=== PATIENT | male | born 1935 | race Caucasian/White ===

== ENCOUNTER 2016-10-08 09:50 | Inpatient (IN) ==
--- NOTE | 2016-10-08 10:13 | Emergency Department Note ---
Disposition Clinical Impression: Generalized weakness UTI (urinary tract infection) Qualifiers: Urinary tract infection type: acute cystitis Hematuria presence: with hematuria Qualified Code(s): N30.01 - Acute cystitis with hematuria Disposition: Admitted As Inpatient Condition: Fair Referrals: NO,PCP [Primary Care Provider] - Forms: ED Satisfaction Letter Time of Disposition: 13:25 Syncope HPI - General Chief Complaint: ED Dizziness Stated Complaint: Bilat leg weakness, blurred vision Time Seen by Provider: 10/08/16 10:03 Source: patient, family Mode of arrival: wheelchair Limitations: no limitations Nursing Notes Reviewed: Yes Vital Signs Reviewed: Yes - History of Present Illness HPI Narrative: 81-year-old has had a progressive generalized weakness to the point he cannot get up and get around now. Symptoms have been going on for quite some time he was actually hospitalized at outside facility about a month ago for similar. Patient states he also has blurred vision has been dizzy and felt like he is going to pass out. Pt Subjective Complaint: felt faint, almost passed out Onset (ago): week(s) Prodromal Symptoms: lightheaded Injuries Sustained Associated with Event: none Current Symptoms: lightheaded, weakness (Generalized) History: none Treatments prior to arrival: none Associated trauma secondary to event: No - Related Data Home Medications Medication Instructions Recorded Confirmed Amlodipine [Norvasc] 5 mg PO DAILY 10/08/16 10/08/16 Apixaban [Eliquis] 5 mg PO BID 10/08/16 10/08/16 Aspirin [Ecotrin] 325 mg PO DAILY 10/08/16 10/08/16 Carvedilol [Coreg] 6.25 mg PO BIDWM 10/08/16 10/08/16 Donepezil [Aricept] 5 mg PO HS 10/08/16 10/08/16 Furosemide [Lasix] 40 mg PO BID 10/08/16 10/08/16 Potassium Chloride [K-Tab ER] 10 meq PO DAILY 10/08/16 10/08/16 Simvastatin [Zocor] 80 mg PO HS 10/08/16 10/08/16 Tamsulosin [Flomax] 0.4 mg PO DAILY 10/08/16 10/08/16 TraZODone 50 mg PO HS 10/08/16 10/08/16 Allergies Allergy/AdvReac Type Severity Reaction Status Date / Time No Known Allergies Allergy Verified 10/08/16 09:59 Constitutional: Denies: fever, chills, weakness, weight change Eyes: Reports: vision change (Blurred vision). Denies: eye pain, eye discharge ENT ED: Denies: ear pain, throat pain, dental pain, hearing loss, epistaxis, congestion, dysphagia Cardiovascular: Denies: chest pain, palpitations, dyspnea on exertion, edema, syncope Respiratory: Denies: cough, dyspnea, wheezes, hemoptysis, stridor Gastrointestinal: Denies: abdominal pain, nausea, vomiting, diarrhea, constipation, hematemesis, melena, hematochezia Genitourinary: Denies: urgency, dysuria, frequency, hematuria Musculoskeletal: Denies: back pain, neck pain, arthralgia, myalgia Integumentary: Denies: rash, abrasion, lesions Neurological: Denies: headache, weakness, numbness, paresthesias, confusion, abnormal gait, vertigo Psychiatric: Denies: anxiety, depression, suicidal thoughts, homicidal thoughts , auditory hallucinations, visual hallucinations Endocrine: Denies: fatigue Hematological/Lymphatic: Denies: easy bleeding, easy bruising Allergic/Immunologic: Denies: facial swelling, urticaria Past Medical History - Past Medical History Medical history: Reports: arthritis, atrial fibrillation, GI bleed, hyperlipidemia, hypertension, myocardial infarction Surgical history: Reports: hip replacement, pacemaker/AICD, other Psychiatric history: Reports: no psych history - Social History Smoking Status: Never smoker Smokeless Tobacco Status: No Alcohol use: Reports: none Drug use: Reports: none Physical Exam - General Limitations: no limitations General appearance: alert - Head Head exam: atraumatic, normocephalic, normal inspection - Eye Eye exam: Present: normal appearance, PERRL, EOMI - ENT ENT exam: normal exam, normal oropharynx, mucous membranes moist - Neck Neck exam: Present: normal inspection, full ROM, trachea midline - Chest Chest inspection: Present: normal inspection, symmetric chest wall rise - Respiratory Respiratory exam: Present: normal lung sounds bilaterally - Cardiovascular Cardiovascular exam: Present: regular rate, normal rhythm, normal heart sounds - Abdominal Exam Abdominal exam: Present: soft, Non-Tender. Absent: tenderness, distention, guarding, rebound, rigidity - Extremities Exam Extremities exam: Present: normal inspection, full ROM. Absent: tenderness, pedal edema - Expanded Lower Extremity Exam Neurovascular/Tendon exam: Absent: motor deficit, sensory deficit, tendon deficit Gait: not tested/not observed - Back Exam Back exam: Present: normal inspection - Neurological Exam Neurological exam: Present: alert, oriented X3, motor sensory deficit - Psychiatric Psychiatric exam: Present: normal affect, normal mood - Skin Skin exam: Present: warm, dry, intact, normal color Course - Reevaluation(s) Reevaluation #1: 81-year-old comes in with generalized weakness, getting out of bed trouble getting around. Urine does show what appears to be a UTI. CT scan shows no acute findings. Time: 13:24 - Consultations Consultation #1: Discussed with , admit. Time: 13:23 Vital Signs Temperature 97.8 F 10/08/16 09:52 Pulse Rate 63 10/08/16 09:52 Respiratory Rate 17 10/08/16 09:52 Blood Pressure 101/49 10/08/16 09:52 O2 Sat by Pulse Oximetry 100 10/08/16 09:52 Temperature 97.8 F 10/08/16 09:52 Pulse Rate 63 10/08/16 12:30 Respiratory Rate 18 10/08/16 12:30 Blood Pressure 98/61 10/08/16 12:30 O2 Sat by Pulse Oximetry 100 10/08/16 12:30 Oxygen Delivery Oxygen Delivery Nasal Cannula Syncope - Lab Data Lab results reviewed: Yes I reviewed the patient's lab results. Result diagrams: 10/08/16 10:39 10/08/16 10:39 Lab Results 10/08/16 10/08/16 10/08/16 Range/Units 10:39 10:39 10:39 WBC 18.7 H (4.3-11.1) K/mcL RBC 2.46 L (4.19-5.50) M/mcL Hgb 7.1 L (12.9-16.9) g/dL Hct 25.1 L (37.5-50.1) % MCV 102.0 H (83.0-100.0) fL MCH 28.9 (28.0-33.3) pg MCHC 28.3 L (31.6-35.5) g/dL RDW 20.2 H (11.5-14.5) % Plt Count 630 H (140-400) K/mcL MPV 10.1 (9.4-12.4) fL Seg Neutrophils % 64.0 % Band Neutrophils % 8.0 H (0-4) % Lymphocytes % 16.0 % Monocytes % 2.0 % Metamyelocytes % 2.0 H (0) % Myelocytes % 8.0 H (0) % Neutrophils # 13.5 H (1.6-8.9) K/mcL Lymphocytes # 3.0 (0.6-4.6) K/mcL Monocytes # 0.4 (0.0-1.3) K/mcL Nucleated RBCs/100 WBC 0.1 H (0) /100 WBC Toxic Granulation Present A (Not Present) Platelet Estimate Marked Increase H (Normal) Polychromasia 1+ A (Not Present) Poikilocytosis 1+ A (Not Present) Basophilic Stippling 1+ A (Not Present) Anisocytosis 2+ A (Not Present) PT 18.0 H (9.4-12.1) Seconds INR 1.6 APTT (26.0-36.0) Seconds Sodium 135 L (136-145) mEq/L Potassium 5.1 H (3.5-4.5) mEq/L Chloride 107 (98-109) mEq/L Carbon Dioxide 17 L (19-29) mEq/L BUN 100 H (8-26) mg/dL Creatinine 3.20 H (0.72-1.25) mg/dL Est GFR ( Amer) 23 L (> 60) Est GFR (Non-Af Amer) 19 L (> 60) BUN/Creatinine Ratio 31 H (6-26) Glucose 129 H (70-99) mg/dL Calculated Osmolality 313 H (280-300) Calcium 8.6 (8.6-10.8) mg/dL Troponin I (0-0.03) ng/mL Urine Color (Yellow) Urine Clarity (Clear) Urine pH (5.0-8.0) pH Units Ur Specific [place] (1.010-1.025) Urine Protein (Neg-Trace) mg/dL Urine Glucose (UA) (Normal) mg/dL Urine Ketones (Negative) mg/dL Urine Blood (Negative) Urine Nitrite (Negative) Urine Bilirubin (Negative) Urine Urobilinogen (Normal) mg/dL Ur Leukocyte Esterase (Negative) Urine Microscopic RBC (0-3) per hpf Urine Microscopic WBC (0-3) per hpf Ur Squamous Epith Cells (None-Few) per lpf Urine Bacteria (None-Few) per hpf Hyaline Casts (None-Few) per lpf Ur Culture Indicated? (NO) Blood Type Antibody Screen 10/08/16 10/08/16 10/08/16 Range/Units 10:39 10:39 12:01 WBC (4.3-11.1) K/mcL RBC (4.19-5.50) M/mcL Hgb (12.9-16.9) g/dL Hct (37.5-50.1) % MCV (83.0-100.0) fL MCH (28.0-33.3) pg MCHC (31.6-35.5) g/dL RDW (11.5-14.5) % Plt Count (140-400) K/mcL MPV (9.4-12.4) fL Seg Neutrophils % % Band Neutrophils % (0-4) % Lymphocytes % % Monocytes % % Metamyelocytes % (0) % Myelocytes % (0) % Neutrophils # (1.6-8.9) K/mcL Lymphocytes # (0.6-4.6) K/mcL Monocytes # (0.0-1.3) K/mcL Nucleated RBCs/100 WBC (0) /100 WBC Toxic Granulation (Not Present) Platelet Estimate (Normal) Polychromasia (Not Present) Poikilocytosis (Not Present) Basophilic Stippling (Not Present) Anisocytosis (Not Present) PT (9.4-12.1) Seconds INR APTT 33.3 (26.0-36.0) Seconds Sodium (136-145) mEq/L Potassium (3.5-4.5) mEq/L Chloride (98-109) mEq/L Carbon Dioxide (19-29) mEq/L BUN (8-26) mg/dL Creatinine (0.72-1.25) mg/dL Est GFR ( Amer) (> 60) Est GFR (Non-Af Amer) (> 60) BUN/Creatinine Ratio (6-26) Glucose (70-99) mg/dL Calculated Osmolality (280-300) Calcium (8.6-10.8) mg/dL Troponin I 0.01 (0-0.03) ng/mL Urine Color (Yellow) Urine Clarity (Clear) Urine pH (5.0-8.0) pH Units Ur Specific [place] (1.010-1.025) Urine Protein (Neg-Trace) mg/dL Urine Glucose (UA) (Normal) mg/dL Urine Ketones (Negative) mg/dL Urine Blood (Negative) Urine Nitrite (Negative) Urine Bilirubin (Negative) Urine Urobilinogen (Normal) mg/dL Ur Leukocyte Esterase (Negative) Urine Microscopic RBC (0-3) per hpf Urine Microscopic WBC (0-3) per hpf Ur Squamous Epith Cells (None-Few) per lpf Urine Bacteria (None-Few) per hpf Hyaline Casts (None-Few) per lpf Ur Culture Indicated? (NO) Blood Type A NEGATIVE Antibody Screen NEGATIVE 10/08/16 Range/Units 12:35 WBC (4.3-11.1) K/mcL RBC (4.19-5.50) M/mcL Hgb (12.9-16.9) g/dL Hct (37.5-50.1) % MCV (83.0-100.0) fL MCH (28.0-33.3) pg MCHC (31.6-35.5) g/dL RDW (11.5-14.5) % Plt Count (140-400) K/mcL MPV (9.4-12.4) fL Seg Neutrophils % % Band Neutrophils % (0-4) % Lymphocytes % % Monocytes % % Metamyelocytes % (0) % Myelocytes % (0) % Neutrophils # (1.6-8.9) K/mcL Lymphocytes # (0.6-4.6) K/mcL Monocytes # (0.0-1.3) K/mcL Nucleated RBCs/100 WBC (0) /100 WBC Toxic Granulation (Not Present) Platelet Estimate (Normal) Polychromasia (Not Present) Poikilocytosis (Not Present) Basophilic Stippling (Not Present) Anisocytosis (Not Present) PT (9.4-12.1) Seconds INR APTT (26.0-36.0) Seconds Sodium (136-145) mEq/L Potassium (3.5-4.5) mEq/L Chloride (98-109) mEq/L Carbon Dioxide (19-29) mEq/L BUN (8-26) mg/dL Creatinine (0.72-1.25) mg/dL Est GFR ( Amer) (> 60) Est GFR (Non-Af Amer) (> 60) BUN/Creatinine Ratio (6-26) Glucose (70-99) mg/dL Calculated Osmolality (280-300) Calcium (8.6-10.8) mg/dL Troponin I (0-0.03) ng/mL Urine Color Yellow (Yellow) Urine Clarity Cloudy A (Clear) Urine pH 5.5 (5.0-8.0) pH Units Ur Specific [place] 1.016 (1.010-1.025) Urine Protein 100 H (Neg-Trace) mg/dL Urine Glucose (UA) Normal (Normal) mg/dL Urine Ketones Negative (Negative) mg/dL Urine Blood Large H (Negative) Urine Nitrite Negative (Negative) Urine Bilirubin Negative (Negative) Urine Urobilinogen Normal (Normal) mg/dL Ur Leukocyte Esterase Small H (Negative) Urine Microscopic RBC 30-50 H (0-3) per hpf Urine Microscopic WBC 5-15 H (0-3) per hpf Ur Squamous Epith Cells Moderate H (None-Few) per lpf Urine Bacteria None Seen (None-Few) per hpf Hyaline Casts None Seen (None-Few) per lpf Ur Culture Indicated? YES A (NO) Blood Type Antibody Screen - Radiology Data Radiology results reviewed: Yes I reviewed the patient's radiology results. Chest X-Ray 10/08/16 10:09 IMPRESSION: Stable study showing cardiomegaly. D/ / Lauren Vargas Cha, MD / Lauren Vargas Cha, MD Interpreting Provider: Lauren Vargas Cha, MD Head CT 10/08/16 10:09 IMPRESSION: No acute intracranial abnormality. If acute cerebral infarct is a clinical concern, an MRI is a more sensitive study. D/ / Lauren Vargas Cha, MD / Lauren Vargas Cha, MD Interpreting Provider: Lauren Vargas Cha, MD Stroke Scale - Level of Consciousness LOC: Alert - LOC Questions LOC Questions: Answers both correctly - LOC Commands LOC Commands: Performs both correctly - Best Gaze Best Gaze: Normal - Visual Visual: No visual loss - Facial Palsy Facial Palsy: Normal - Motor Arms Motor Arm-Left: No drift for 10 seconds Motor Arm-Right: No drift for 10 seconds - Motor Legs Motor Leg-Left: Drift, does NOT hit bed Motor Leg-Right: Some effort against gravity, limb drifts to bed - Limb Ataxia Limb Ataxia: Normal, No Ataxia - Sensory Sensory: Normal - Best Language Best Language: No aphasia - Dysarthria Dysarthria: Normal - Extinction and Inattention Extinction and Inattention: Normal - NIHSS Total Score NIHSS Total Score: 3 TPA Checklist - Eligibilty for IV tPA 1. LKW equal to or less than 4.5 hours be before treatment: No - LKW: 3-4.5 hrs Add. Contraindications Patient/family understanding: The patient/family members have been counseled and understood the risk, benefit , and alternatives of treatment.
[2016-10-08 11:02] LABS: Hematocrit 25.1 % (37.5-50.1); Hemoglobin 7.1 g/dL (12.9-16.9); Mean Corpuscular HGB Conc 28.3 g/dL (31.6-35.5); Mean Corpuscular Hemoglobin 28.9 pg (28.0-33.3); Mean Platelet Volume 10.1 fL (9.4-12.4); Nucleated Red Blood Cells 0.1 /100 WBC (0); Platelet Count 630 K/mcL (140-400); Red Blood Count 2.46 M/mcL (4.19-5.50); Red Cell Distribution Width 20.2 % (11.5-14.5)
[2016-10-08 11:06] LABS: INR 1.6
[2016-10-08 11:13] LABS: Calcium 8.6 mg/dL (8.6-10.8); Potassium 5.1 mEq/L (3.5-4.5)
[2016-10-08 11:54] LABS: Monocytes # 0.4 K/mcL (0.0-1.3); Neutrophils # 13.5 K/mcL (1.6-8.9)
[2016-10-08 11:55] LABS: Anisocytosis 2+ (Not Present); Basophilic Stippling 1+ (Not Present); Platelet Estimate Marked Increase (Normal); Polychromasia 1+ (Not Present)
[2016-10-08 11:56] LABS: Poikilocytosis 1+ (Not Present); Toxic Granulation Present (Not Present)
[2016-10-08] MEDS ORDERED: 0.9 % Sodium Chloride 250 ML IVC ONE (12:29)
[2016-10-08 12:42] LABS: Bilirubin,Urine Negative (Negative); Blood,Urine Large (Negative); Clarity,Urine Cloudy (Clear); Color,Urine Yellow (Yellow); Glucose,Urine (UA) Normal (Normal); Ketones,Urine Negative (Negative); Leukocyte Esterase,Urine Small (Negative); Nitrite,Urine Negative (Negative); PH,Urine 5.5 pH Units (5.0-8.0); Protein,Urine 100 mg/dL (Neg-Trace); Specific Gravity,Urine 1.016 (1.010-1.025); Urobilinogen,Urine Normal (Normal)
[2016-10-08 12:44] LABS: Bacteria,Urine None Seen per hpf (None-Few); Hyaline Casts,Urine None Seen per lpf (None-Few); RBC,Urine 30-50 per hpf (0-3); Squamous Epithelial Cell,Urine Moderate per lpf (None-Few)
[2016-10-08] MEDS ORDERED: Naloxone 0.4 MG/ML INJ IVP PRN (13:11)
[2016-10-08] MEDS ORDERED: Ondansetron 4 MG/2 ML VIAL IVP PRN (13:11)
[2016-10-08] MEDS: 0.9 % Sodium Chloride 1,000 ML IVC SCH (13:55)
--- NOTE | 2016-10-08 13:59 | Internal Med History&Physical ---
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 social media marketing specialist eval for d/c planning (2) UTI (urinary tract infection) Current visit: Yes Status: Acute -f/u urine cultures -started Ceftriaxone 1gm IV qd -leukocytosis likely secondary to UTI, closely monitor -f/u blood cultures Qualifiers: Urinary tract infection type: acute cystitis Hematuria presence: without hematuria Qualified Code(s): N30.00 - Acute cystitis without hematuria (3) Dizziness Current visit: Yes Status: Resolved -resolved at this time -obtain orthostatic vitals -maintain fall precautions (4) Anemia Current visit: No Status: Acute -No active bleeding noted -will obtain stool occult -currently being transfused 2units PRBC -will closely monitor Qualifiers: Anemia type: unspecified type Qualified Code(s): D64.9 - Anemia, unspecified (5) Acute on chronic kidney failure Current visit: No Status: Acute likely secondary to underlying UTI will continue IV fluids hold nephrotoxic agents at this time continue to closely monitor (6) Alzheimers disease Current visit: Yes Status: Chronic -continue home medications Qualifiers: Alzheimer's disease onset: unspecified onset Dementia behavioral disturbance: without behavioral disturbance Qualified Code(s): G30.9 - Alzheimer's disease, unspecified; F02.80 - Dementia in other diseases classified elsewhere without behavioral disturbance (7) Hyperkalemia Current visit: Yes Status: Acute Pt was reported of taking K supplements at home, will hold at this time No EKG changes noted continue to closely monitor (8) Atrial fibrillation Current visit: No Status: Chronic Rate controlled Currently off anticoagulation as per primary kitchen food assembler due to recent new onset of diffuse bruising Will monitor off anticoagulation at this time Qualifiers: Atrial fibrillation type: chronic Qualified Code(s): I48.2 - Chronic atrial fibrillation (9) HTN (hypertension) Current visit: No Status: Chronic Noted to be hypotensive Will hold antihypertensive medications at this time continue to closely monitor BP Qualifiers: Hypertension type: essential hypertension Qualified Code(s): I10 - Essential (primary) hypertension (10) DVT prophylaxis Current visit: Yes Status: Acute IPCD Internal Medicine - H&P: HPI Chief complaint: dizziness Admitted From: Home Plans for Post Hospital Care: Transfer [facility] History of present illness: Mr. Rodríguez is a 81 year old male with PMH of hypertension, hyperlipidemia, CKD, Afib, nephrolithiasis s/p stent placement, newly diagnosed Alzheimers disease, and PVD who is brought to the ER for evaluation of generalized weakness and dizziness. Patient states overnight he got up to use the bathroom and felt the room was spinning, however denies any other complains. As per his who is present at bedside, patient has been progressively getting weaker and his kitchen food assembler stopped the anticoagulation due to increased bruising. She states he was recently started on Donepazil and overnight he was extremely weak that it was struggle to even get him out of bed to bring to the hospital. At rest patient appears to be in distress. He is AAO x 3 and denies any headache, dizziness, sob, chest pain, palpitations, abd pain, n/v, dysuria, fever, or chills. Denies any history or recent GI bleeds. Reports of chronic constipation for which he takes milk of mg. I had a detailed discussion in regards to patient's advance directives, patient wishes to be DNR/DNI and reports of having these discussions at home and agrees with patient's code status. Past Med Surg Social Fam HX - Past Medical History Medical history: arthritis, atrial fibrillation, hyperlipidemia, hypertension, myocardial infarction Psychiatric history: no psych history - Past Surgical History Surgical History: hip replacement, pacemaker/AICD, other - Social History Smoking Status: Never smoker Smokeless Tobacco Status: No Alcohol use: none Drug use: none Internal Medicine - H&P: Meds Amlodipine [Norvasc] 5 mg PO DAILY 10/08/16 [History] Apixaban [Eliquis] 5 mg PO BID 10/08/16 [History] Aspirin [Ecotrin] 325 mg PO DAILY 10/08/16 [History] Carvedilol [Coreg] 6.25 mg PO BIDWM 10/08/16 [History] Donepezil [Aricept] 5 mg PO HS 10/08/16 [History] Furosemide [Lasix] 40 mg PO BID 10/08/16 [History] Potassium Chloride [K-Tab ER] 10 meq PO DAILY 10/08/16 [History] Simvastatin [Zocor] 80 mg PO HS 10/08/16 [History] Tamsulosin [Flomax] 0.4 mg PO DAILY 10/08/16 [History] TraZODone 50 mg PO HS 10/08/16 [History] Allergies No Known Allergies Allergy (Verified 10/08/16 09:59) All Systems PM: A 10-system review of systems was performed and is negative for pertinent findings except as documented above in the HPI. - Constitutional Constitutional: as per HPI, weakness, no chills, no fever(s), no falls, no night sweats - Constitutional Vitals: Temp Pulse Resp BP Pulse Ox 97.8 F 63 18 98/61 100 10/08/16 09:52 10/08/16 12:30 10/08/16 12:30 10/08/16 12:30 10/08/16 12:30 General appearance: Present: A&O X 3, pleasant, no acute distress, obese, answers questions appropriately - Head Head exam: Present: atraumatic, normocephalic - Respiratory Respiratory exam: Present: CTAB. Absent: respiratory distress, wheezes - Cardiovascular Cardiovascular exam: Present: RRR, +S1, +S2 - GI/Abdominal GI/Abdominal exam: Present: normal bowel sounds, soft. Absent: distended, tenderness - Extremities Exam Extremities exam: Present: pedal edema, warm, radial pulses palpable and symetrical. Absent: calf tenderness, tenderness - Neurological Exam Neurological exam: Present: alert, oriented X3, no focal deficits - Psychiatric Psychiatric exam: Present: normal affect, normal mood - Skin Skin exam: Present: warm (right lateral chest wall bruising) Internal Med - H&P Results - Labs CBC & Chem 7: 10/08/16 10:39 10/08/16 10:39
[2016-10-08] MEDS ORDERED: 0.9 % Sodium Chloride 250 ML ONE ×2 (14:55→20:14)
[2016-10-08] MEDS: Sennosides/Docusate Sodium TABLET PO SCH (20:09)
[2016-10-08] MEDS ORDERED: traZODone 50 MG TABLET PO SCH (21:00)
[2016-10-08] MEDS: traZODone 50 MG TABLET PO PRN (23:32)
[2016-10-09 05:13] LABS: Hematocrit 26.2 % (37.5-50.1); Hemoglobin 7.8 g/dL (12.9-16.9); Immature Platelets 5.9 % (1.1-6.1); Mean Corpuscular HGB Conc 29.8 g/dL (31.6-35.5); Mean Corpuscular Hemoglobin 29.5 pg (28.0-33.3); Mean Corpuscular Volume 99.2 fL (83.0-100.0); Mean Platelet Volume 10.3 fL (9.4-12.4); Nucleated Red Blood Cells 0.1 /100 WBC (0); Platelet Count 712 K/mcL (140-400); Red Blood Count 2.64 M/mcL (4.19-5.50); Red Cell Distribution Width 20.1 % (11.5-14.5)
[2016-10-09 05:29] LABS: Calcium 8.1 mg/dL (8.6-10.8); Phosphorous 5.4 mg/dL (2.3-4.7); Potassium 4.6 mEq/L (3.5-4.5)
[2016-10-09 05:49] LABS: Eosinophils # 0.2 K/mcL (0.0-0.6); Lymphocytes # 0.9 K/mcL (0.6-4.6); Monocytes # 0.9 K/mcL (0.0-1.3); Neutrophils # 13.8 K/mcL (1.6-8.9)
[2016-10-09 05:50] LABS: Anisocytosis 2+ (Not Present); Macrocytosis Present (Not Present); Platelet Estimate Marked Increase (Normal); Polychromasia 2+ (Not Present)
[2016-10-09 05:51] LABS: Large Platelets Present (Not Present); Poikilocytosis 2+ (Not Present)
[2016-10-09] MEDS: 0.9 % Sodium Chloride 1,000 ML IVC SCH (06:57)
--- NOTE | 2016-10-09 09:28 | Internal Med Progress Note ---
<James Matta - Last Filed: 10/09/16 13:50> Date of Encounter: 10/09/16 Time of Encounter: 09:26 - Assessment and plan (1) Generalized weakness Current Visit: Yes Status: Acute Assessment and plan: likely secondary to underlying UTI vs anemia was dizziness upon admission. now resolved. Still has fatigue, but improved since admission initial Hgb 7.1. Pt. was transfused 2 units PRBC. Hgb up to 7.8. NS IVF 125ml/hr. monitor cbc Iron studies fecal occult pending CT abd/pelvis to r/o abscess, bleeding (2) UTI (urinary tract infection) Current Visit: Yes Status: Acute Assessment and plan: started Ceftriaxone 1gm IV qd leukocytosis likely secondary to UTI, closely monitor f/u blood cultures Qualifiers: Urinary tract infection type: acute cystitis Hematuria presence: without hematuria Qualified Code(s): N30.00 - Acute cystitis without hematuria (3) Anemia Current Visit: No Status: Acute Assessment and plan: 2/2 ckd vs. active bleed pt. demies melena/hemoptysis/hematochezia stool occult pending check B12, Folate monitor cbc transfuse as needed Qualifiers: Anemia type: unspecified type Qualified Code(s): D64.9 - Anemia, unspecified (4) Alzheimers disease Current Visit: Yes Status: Chronic Assessment and plan: continue home meds Qualifiers: Alzheimer's disease onset: unspecified onset Dementia behavioral disturbance: without behavioral disturbance Qualified Code(s): G30.9 - Alzheimer's disease, unspecified; F02.80 - Dementia in other diseases classified elsewhere without behavioral disturbance (5) Atrial fibrillation Current Visit: No Status: Chronic Assessment and plan: Rate controlled Currently off anticoagulation 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 4.6 10/09/15 (7) Acute on chronic kidney failure Current Visit: No Status: Acute Assessment and plan: maggie secondary to underlying UTI vs obstrucive uropathy recent hx of kidney stones s/p stent placement which has not been removed. will continue IV fluids hold nephrotoxic agents at this time retroperitoneal u/s to r/o obstructive uropathy Urine lytes pending consult nephro and follow recommendations (8) Leukocytosis Current Visit: Yes Status: Acute Assessment and plan: wbc 18.7 10/08/16, 17.0 10/09/16 likely 2/2 UTI vs unk etiology abd/pelv ct pending to r/o source Qualifiers: Leukocytosis type: unspecified Qualified Code(s): D72.829 - Elevated white blood cell count, unspecified - Subjective Interval history: Patient seen and examined. Sitting up eating breakfast. Friendly and conversational. States he is not having any pain at this time. UA revelaed hematuria but patient denied gross hematuria. Denies any dysuria, dizziness, chest pain, sob, n/v/d. - Constitutional Vitals: Temp Pulse Resp BP Pulse Ox 97.7 F 60 16 116/72 99 10/09/16 07:13 10/09/16 07:13 10/09/16 07:13 10/09/16 07:13 10/09/16 07:13 General appearance: Present: A&O X 3, pleasant, no acute distress, obese, answers questions appropriately - Head Head exam: Present: atraumatic, normocephalic - Eye Eye exam: Present: periorbital swelling, PERRL, conjuntiva pink, sclera anicteric - Neck Neck exam general surgery: Present: supple, trachea midline. Absent: lymphadenopathy - Respiratory Respiratory exam: Present: CTAB. Absent: accessory muscle use, rales, rhonchi, wheezes - Cardiovascular Cardiovascular exam: Present: RRR (paced), +S1, +S2 - GI/Abdominal GI/Abdominal exam: Present: normal bowel sounds, soft, no peritoneal signs. Absent: distended, tenderness - Extremities Exam Extremities exam: Present: pedal edema, warm, radial pulses palpable and symetrical. Absent: calf tenderness, cyanotic - Neurological Exam Neurological exam: Present: CN II-XII intact, oriented X3, no focal deficits. Absent: facial droop, speech deficit - Skin Skin exam: Present: dry, intact Internal Medicine: Result - Labs CBC & Chem 7: 10/09/16 04:29 10/09/16 04:29 Labs: Short CBC 10/09/16 Range/Units 04:29 WBC 17.0 H (4.3-11.1) K/mcL Hgb 7.8 L (12.9-16.9) g/dL Hct 26.2 L (37.5-50.1) % Plt Count 712 H (140-400) K/mcL Neutrophils # 13.8 H (1.6-8.9) K/mcL BMP 10/09/16 04:29 Sodium 138 Potassium 4.6 H Chloride 110 H Carbon Dioxide 17 L BUN 91 H Creatinine 2.97 H Glucose 116 H Calcium 8.1 L - ABG Interpretation ABG results: PT/INR, D-dimer PT 18.0 Seconds (9.4-12.1) H 10/08/16 10:39 - VTE Documentation of Mechanical Device: Intermittent pneumatic compression device Consult Discharge Plan - Plan Referrals: NO,PCP [Primary Care Provider] - <Rolan El - Last Filed: 10/09/16 17:41> Date of Encounter: 10/09/16 - Constitutional Vitals: Temp Pulse Resp BP Pulse Ox 97.8 F 65 18 109/60 100 10/09/16 15:00 10/09/16 15:00 10/09/16 15:00 10/09/16 15:00 10/09/16 15:00 Internal Medicine: Result - Labs CBC & Chem 7: 10/09/16 15:15 10/09/16 04:29 Labs: Short CBC 10/09/16 10/09/16 Range/Units 04:29 15:15 WBC 17.0 H (4.3-11.1) K/mcL Hgb 7.8 L 8.2 L (12.9-16.9) g/dL Hct 26.2 L 27.9 L (37.5-50.1) % Plt Count 712 H (140-400) K/mcL Neutrophils # 13.8 H (1.6-8.9) K/mcL BMP 10/09/16 04:29 Sodium 138 Potassium 4.6 H Chloride 110 H Carbon Dioxide 17 L BUN 91 H Creatinine 2.97 H Glucose 116 H Calcium 8.1 L - ABG Interpretation ABG results: PT/INR, D-dimer PT 18.1 Seconds (9.4-12.1) H 10/09/16 09:52 - Impressions Impressions Abdomen/Pelvis CT 10/09/16 12:45 IMPRESSION: No focal abscess identified. There is trace ascites, hepatomegaly, and right ureteral stent in good position. There is also a large right inguinal hernia containing numerous bowel loops and small amount of fluid. D/ / Regan Durant MD / Regan Durant MD Interpreting Provider: Regan Durant MD Retroperitoneum Ultrasound 10/09/16 13:30 IMPRESSION: No hydronephrosis. Right nephrolithiasis. Indwelling right ureteral stent. Moderately extensive changes suggestive of medical renal disease. D/ / Kane Hagan MD / Kane Hagan MD Interpreting Provider: Kane Hagan MD - Attending Attestation I examined this patient and my medical decision-making was reviewed with the DETENTION OFFICER/PA/Advanced Practice Nurse/Resident Physician. I agree with the documented findings, disposition and treatment plan as described except to the extent set forth below. Admitted due to weakness, had anemia on presentation with a hemoglobin of 7.1, and received 1 unit of blood yesterday, todays Hb was 7.8. Leukocytosis with bandemia, MAGGIE, Hematuria, evidence of UTI. On Rocephin. Patient with history of A. fib, AC was stopped as outpatient due to easy bruises. CT of the abdomen and pelvis: no abscess, ureteral stent in good position. Acute kidney injury and anemia workup, evaluation by nephrology, Dr. Aguirre. Uric Acid 16. Possible TLS, Hem-onc consulted. Rasburicase started. Chest CT without contrast ordered. Follow echo, cultures.
[2016-10-09 10:08] LABS: INR 1.7; Prothrombin Time 18.1 Seconds (9.4-12.1)
[2016-10-09] MEDS: Aspirin Enteric Coated 325 MG Tablet PO SCH (10:15)
[2016-10-09] MEDS: Sennosides/Docusate Sodium TABLET PO SCH ×2 (10:15→20:32)
[2016-10-09 10:48] LABS: Folate 13.2 ng/mL (7.0-31.4)
[2016-10-09] MEDS ORDERED: 0.9 % Sodium Chloride 1,000 ML IVC SCH (11:03)
[2016-10-09 11:36] LABS: Uric Acid 16.2 mg/dL (3.5-7.2)
--- NOTE | 2016-10-09 13:53 | Electrocardiograph Report ---
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
[2016-10-09 15:25] LABS: Hematocrit 27.9 % (37.5-50.1); Hemoglobin 8.2 g/dL (12.9-16.9)
[2016-10-09] MEDS ORDERED: SODIUM CHLORIDE 0.9% IVPB ONE (16:28)
[2016-10-09] MEDS ORDERED: RASBURICASE IVPB ONE (16:28)
[2016-10-09] MEDS ORDERED: Gabapentin 300 MG CAPSULE PO SCH (21:00)
[2016-10-09 23:01] LABS: Protein/Creatinine Ratio,Urine 0.32 mg/mg (0-0.20)
[2016-10-09] MEDS: traZODone 50 MG TABLET PO PRN (23:02)
[2016-10-10 05:14] LABS: Hemoglobin 7.8 g/dL (12.9-16.9); Mean Corpuscular Volume 99.6 fL (83.0-100.0); Mean Platelet Volume 10.4 fL (9.4-12.4); Red Cell Distribution Width 19.9 % (11.5-14.5)
[2016-10-10 05:16] LABS: Hematocrit 26.1 % (37.5-50.1); Mean Corpuscular HGB Conc 29.9 g/dL (31.6-35.5); Mean Corpuscular Hemoglobin 29.8 pg (28.0-33.3); Nucleated Red Blood Cells 0.2 /100 WBC (0); Platelet Count 592 K/mcL (140-400); Red Blood Count 2.62 M/mcL (4.19-5.50)
[2016-10-10 05:33] LABS: Calcium 8.2 mg/dL (8.6-10.8); Potassium 4.7 mEq/L (3.5-4.5)
[2016-10-10 05:59] LABS: Anisocytosis 2+ (Not Present); Basophils # 2.4 K/mcL (0.0-0.2); Lymphocytes # 1.7 K/mcL (0.6-4.6); Monocytes # 1.7 K/mcL (0.0-1.3); Neutrophils # 10.5 K/mcL (1.6-8.9); Ovalocytes 1+ (Not Present); Poikilocytosis 2+ (Not Present); Polychromasia 1+ (Not Present)
[2016-10-10 06:00] LABS: Large Platelets Present (Not Present)
--- NOTE | 2016-10-10 07:22 | Oncology Inp Consult Note ---
Date of Encounter: 10/10/16 Time of Encounter: 07:22 - Data of Consult Patient: new to practice Consult date: 10/10/16 Requesting Physician: Rolan El Primary Care Provider: PCP NO - Consult Narrative Reason for consult: Suspected tumor lysis syndrome. History of present illness: Mr. Rodríguez is a 81 year old gentleman seen in consultation for further evaluation of suspected tumor lysis syndrome. Patient presented 10/02/15 with progressive generalized weakness and unexplained dizziness. Workup on admission showed acute exacerbation of underlying chronic kidney disease in addition to anemia and multiple electrolyte abnormalities during hypokalemia, hypophosphatemia, hypocalcemia raising concern about possible tumor lysis syndrome. CK was normal and abdomen lysis considered unlikely. WBC showed moderate leukocytosis 17,000 with differential WBC count indicating a left shifted picture including monocytosis and basophilia. Other findings include anemia with hemoglobin as low as 7 and thrombocytosis with platelet count of 630,000. Based on above, there is concern about tumor lysis syndrome on the basis of underlying occult malignancy. Oncology is consulted re: evaluation and management of suspected tumor lysis syndrome. Hospital team was kind enough to discuss patient's case with me at time of requesting consultation. He has had systemic imaging including CT head, chest, abdomen, pelvis all of which have returned unremarkable for focal abnormalities suggest underlying solid organ malignancy. Patient seen and examined at bedside. Chart reviewed for details of ongoing care by Hospital team which is much appreciated. Patient reports feeling considerably better this morning compared to initial presentation although he somewhat of a poor historian. 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 Rest of his ongoing problems during this auscultation include UTI generalized weakness, atrial fibrillation. Leukocytosis is persistence of admission. Kidney function is steadily improving. Hyperkalemia is improving. Rest of past medical, surgical, family, social history detailed below and verified with patient today. Review of systems: 12 point review of systems performed with patient and positive findings noted in history of present illness. All other systems are negative: Physical exam: Vital Signs Temp 98.7 F 10/10/16 04:46 Pulse 70 10/10/16 04:46 Resp 19 10/10/16 04:46 BP 122/87 10/10/16 04:46 Pulse Ox 96 10/10/16 04:46 GENERAL: * Alert and oriented, comfortable appearing. * Mental Status: Affect appropriate for circumstances. HEENT: * Sclerae anicteric. No mucositis or thrush. * No other oral or pharyngeal lesions or erythema. Skin: * No rashes or petechiae. * No evidence of skin malignancy Lymph nodes: * No cervical, supraclavicular, axillary, or inguinal adenopathy. Lungs: * Clear to auscultation bilaterally. * Clear to percussion bilaterally. Cardiovascular: * Regular rate and rhythm. * No gallops, murmurs, or rubs. Abdomen: * Soft, nontender; * No organomegaly or masses palpable. Extremities: * No edema. No calf swelling or tenderness. * No joint deformity. Neurologic: * Comfortable in bed. Global weakness. * no focal weakness or sensory abnormalities. Results: Laboratory Last Values WBC 17.0 K/mcL (4.3-11.1) H 10/10/16 04:35 RBC 2.62 M/mcL (4.19-5.50) L 10/10/16 04:35 Hgb 7.8 g/dL (12.9-16.9) L 10/10/16 04:35 Hct 26.1 % (37.5-50.1) L 10/10/16 04:35 MCV 99.6 fL (83.0-100.0) 10/10/16 04:35 MCH 29.8 pg (28.0-33.3) 10/10/16 04:35 MCHC 29.9 g/dL (31.6-35.5) L 10/10/16 04:35 RDW 19.9 % (11.5-14.5) H 10/10/16 04:35 Plt Count 592 K/mcL (140-400) H 10/10/16 04:35 MPV 10.4 fL (9.4-12.4) 10/10/16 04:35 Seg Neutrophils % 38.0 % 10/10/16 04:35 Band Neutrophils % 24.0 % (0-4) H 10/10/16 04:35 Lymphocytes % 10.0 % 10/10/16 04:35 Monocytes % 10.0 % 10/10/16 04:35 Eosinophils % 1.0 % 10/09/16 04:29 Basophils % 14.0 % 10/10/16 04:35 Metamyelocytes % 4.0 % (0) H 10/10/16 04:35 Myelocytes % 3.0 % (0) H 10/09/16 04:29 Blast Cells % 1.0 % (0) H 10/09/16 04:29 Neutrophils # 10.5 K/mcL (1.6-8.9) H 10/10/16 04:35 Lymphocytes # 1.7 K/mcL (0.6-4.6) 10/10/16 04:35 Monocytes # 1.7 K/mcL (0.0-1.3) H 10/10/16 04:35 Eosinophils # 0.2 K/mcL (0.0-0.6) 10/09/16 04:29 Basophils # 2.4 K/mcL (0.0-0.2) H 10/10/16 04:35 Nucleated RBCs/100 WBC 0.2 /100 WBC (0) H 10/10/16 04:35 Toxic Granulation Present (Not Present) A 10/08/16 10:39 Platelet Estimate Slight increase (Normal) H 10/10/16 04:35 Large Platelets Present (Not Present) A 10/10/16 04:35 Immature Plt Fraction 5.9 % (1.1-6.1) 10/09/16 04:29 Polychromasia 1+ (Not Present) A 10/10/16 04:35 Poikilocytosis 2+ (Not Present) A 10/10/16 04:35 Basophilic Stippling 1+ (Not Present) A 10/08/16 10:39 Anisocytosis 2+ (Not Present) A 10/10/16 04:35 Macrocytosis Present (Not Present) A 10/09/16 04:29 Ovalocytes 1+ (Not Present) A 10/10/16 04:35 PT 18.1 Seconds (9.4-12.1) H 10/09/16 09:52 INR 1.7 10/09/16 09:52 APTT 33.3 Seconds (26.0-36.0) 10/08/16 10:39 Sodium 139 mEq/L (136-145) 10/10/16 04:35 Potassium 4.7 mEq/L (3.5-4.5) H 10/10/16 04:35 Chloride 112 mEq/L (98-109) H 10/10/16 04:35 Carbon Dioxide 17 mEq/L (19-29) L 10/10/16 04:35 BUN 84 mg/dL (8-26) H 10/10/16 04:35 Creatinine 2.60 mg/dL (0.72-1.25) H 10/10/16 04:35 Est GFR ( Amer) 29 (> 60) L 10/10/16 04:35 Est GFR (Non-Af Amer) 24 (> 60) L 10/10/16 04:35 BUN/Creatinine Ratio 32 (6-26) H 10/10/16 04:35 Glucose 105 mg/dL (70-99) H 10/10/16 04:35 Calculated Osmolality 314 (280-300) H 10/10/16 04:35 Lactic Acid 1.2 mmol/L (0.5-2.2) 10/08/16 13:39 Uric Acid 16.2 mg/dL (3.5-7.2) H 10/09/16 09:49 Calcium 8.2 mg/dL (8.6-10.8) L 10/10/16 04:35 Phosphorus 5.4 mg/dL (2.3-4.7) H 10/09/16 04:29 Magnesium 3.0 mg/dL (1.6-2.6) H 10/09/16 04:29 Iron 18 mcg/dL (65-175) L 10/09/16 09:49 % Saturation 4 % (20-55) L 10/09/16 09:49 Transferrin 315 mg/dL (174-364) 10/09/16 09:49 Ferritin 50 ng/ml (22-275) 10/09/16 09:49 Creatine Kinase 41 Units/L (30-200) 10/09/16 09:49 Troponin I 0.01 ng/mL (0-0.03) 10/08/16 10:39 Vitamin B12 628 pg/mL (213-816) 10/09/16 09:49 Folate 13.2 ng/mL (7.0-31.4) 10/09/16 09:49 Urine Color Yellow (Yellow) 10/08/16 12:35 Urine Clarity Cloudy (Clear) A 10/08/16 12:35 Urine pH 5.5 pH Units (5.0-8.0) 10/08/16 12:35 Ur Specific [place] 1.016 (1.010-1.025) 10/08/16 12:35 Urine Protein 100 mg/dL (Neg-Trace) H 10/08/16 12:35 Urine Glucose (UA) Normal mg/dL (Normal) 10/08/16 12:35 Urine Ketones Negative mg/dL (Negative) 10/08/16 12:35 Urine Blood Large (Negative) H 10/08/16 12:35 Urine Nitrite Negative (Negative) 10/08/16 12:35 Urine Bilirubin Negative (Negative) 10/08/16 12:35 Urine Urobilinogen Normal mg/dL (Normal) 10/08/16 12:35 Ur Leukocyte Esterase Small (Negative) H 10/08/16 12:35 Urine Microscopic RBC 30-50 per hpf (0-3) H 10/08/16 12:35 Urine Microscopic WBC 5-15 per hpf (0-3) H 10/08/16 12:35 Ur Squamous Epith Cells Moderate per lpf (None-Few) H 10/08/16 12:35 Urine Bacteria None Seen per hpf (None-Few) 10/08/16 12:35 Hyaline Casts None Seen per lpf (None-Few) 10/08/16 12:35 Ur Culture Indicated? YES (NO) A 10/08/16 12:35 Urine Creatinine 68 mg/dL 10/09/16 22:30 Urine Microalbumin 92 mg/L 10/09/16 22:30 Microalb/Creat Ratio 135 (0-30) H 10/09/16 22:30 Protein/Creatinin Ratio 0.32 mg/mg (0-0.20) H 10/09/16 22:30 Urine Sodium 32.0 mEq/L 10/09/16 22:30 Urine Potassium 28.0 mEq/L 10/09/16 22:30 Urine Chloride 27 mEq/L 10/09/16 22:30 Urine Total Protein 22 mg/dL (1-14) H 10/09/16 22:30 Stool Occult Blood Negative (Negative) 10/09/16 15:58 Blood Type A NEGATIVE 10/08/16 12:01 Antibody Screen NEGATIVE 10/08/16 12:01 Crossmatch See Detail 10/08/16 12:01 Radiographic studies: I personally reviewed and interpreted patient's most recent imaging studies dated 1/8/17. I discussed the findings with the patient today. Chest X-Ray 10/08/16 10:09 IMPRESSION: Stable study showing cardiomegaly. D/ / Lauren Vargas Cha, MD / Lauren Vargas Cha, MD Interpreting Provider: Lauren Vargas Cha, MD Head CT 10/08/16 10:09 IMPRESSION: No acute intracranial abnormality. If acute cerebral infarct is a clinical concern, an MRI is a more sensitive study. D/ / Lauren Vargas Cha, MD / Lauren Vargas Cha, MD Interpreting Provider: Lauren Vargas Cha, MD Abdomen/Pelvis CT 10/09/16 12:45 IMPRESSION: No focal abscess identified. There is trace ascites, hepatomegaly, and right ureteral stent in good position. There is also a large right inguinal hernia containing numerous bowel loops and small amount of fluid. D/ / Regan Durant MD / Regan Durant MD Interpreting Provider: Regan Durant MD Retroperitoneum Ultrasound 10/09/16 13:30 IMPRESSION: No hydronephrosis. Right nephrolithiasis. Indwelling right ureteral stent. Moderately extensive changes suggestive of medical renal disease. D/ / Kane Hagan MD / Kane Hagan MD Interpreting Provider: Kane Hagan MD Chest CT 10/09/16 16:39 IMPRESSION: Negative CT of the chest. 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 Fortunately, systemic imaging has returned unremarkable including CT chest, abdomen, pelvis, head CT. No neck adenopathy other solid masses on clinical exam. I had a detailed discussion with the patient regarding diagnostic considerations for his presentation and the basis for concern about underlying occult malignancy which is certainly reasonable consideration. Based on his evaluation so far, no indication of a solid organ malignancy to explain tumor lysis syndrome. Persistent leukocytosis is certainly a concern for primary bone marrow disorder including hematologic malignancy and further workup is warranted. He received a dose of rasburicase due to serum uric acid of 16.2 and the expectation is that his uric acid level would have corrected. No repeat uric acid level noted on chart. We'll follow along and monitor for improvement. Leukocytosis: Consideration for underlying primary hematologic disorder including malignancy is reasonable given patient's advanced age and also based on his WBC differential picture. We'll send peripheral blood flow cytometry and BCR: ABL mutation analysis to evaluate possibility of acute myeloid leukemia and myeloproliferative neoplasm. Leukocytosis may also be on the basis of underlying UTI. We'll monitor for improvement while on antibiotics. Anemia: Likely multifactorial. This is a long-standing problem and has been documented on CBCs dating back to 08/24/2015. Possible contributing factors include underlying kidney dysfunction, infection/ sepsis. As noted above, when he takes with the possibility of primary hematologic disorder such as malignancy. Anemia workup since hospitalization is negative for hematinic deficiencies. Low iron percent saturation and free iron may indicate impaired iron utilization on account of kidney dysfunction. We'll recommend transfusion to maintain hemoglobin of 7 or greater. Once he is back to his baseline kidney function, he may need growth factor support with Aranesp or Procrit in which case it may be reasonable to replenish his iron stores to improve response to CYRUS. Thrombocytosis: Likely reactive due to bone marrow response to anemia. May also indicate infection versus myeloproliferative neoplasm. Without results of pending studies for further recommendation. We'll follow the patient along side you during this hospitalization but please do not hesitate to call regarding interval hematologic questions as they arise. Thank you for your excellent ongoing care for allowing us to see him while in- house. This report was created using voice recognition software and may contain errors. It was signed but not edited to expedite communication. PS: After seeing the patient in the office, I discussed with his Shanae over the phone regarding my impression and recommendations. Past Med Surg Social Fam HX - Past Medical History Medical history: arthritis, atrial fibrillation, dementia, hyperlipidemia, hypertension, kidney stones, myocardial infarction, renal disease Psychiatric history: no psych history - Past Surgical History Surgical History: hip replacement, pacemaker/AICD, other - Social History Smoking Status: Never smoker Smokeless Tobacco Status: No Alcohol use: none Drug use: none - Family History Mother Living Status: Hx Family Cardiac Disorders: Yes (CHF) Medications and Allergies Amlodipine [Norvasc] 5 mg PO DAILY 10/08/16 [History] Apixaban [Eliquis] 5 mg PO BID 10/08/16 [History] Aspirin [Ecotrin] 325 mg PO DAILY 10/08/16 [History] Carvedilol [Coreg] 6.25 mg PO BIDWM 10/08/16 [History] Donepezil [Aricept] 5 mg PO HS 10/08/16 [History] Furosemide [Lasix] 40 mg PO BID 10/08/16 [History] Simvastatin [Zocor] 80 mg PO HS 10/08/16 [History] Tamsulosin [Flomax] 0.4 mg PO DAILY 10/08/16 [History] TraZODone 50 mg PO HS 10/08/16 [History] Gabapentin [Neurontin] 300 mg PO BID 10/09/16 [History] Gabapentin [Neurontin] 600 mg PO QAM 10/09/16 [History] Levothyroxine [Synthroid] 125 mcg PO DAILY 10/09/16 [History] Zolpidem [Ambien] 5 mg PO HS PRN 10/09/16 [History] Allergies No Known Allergies Allergy (Verified 10/09/16 10:28) Oncology - Exam - Constitutional Vitals: Temp Pulse Resp BP Pulse Ox 98.7 F 70 19 122/87 96 10/10/16 04:46 10/10/16 04:46 10/10/16 04:46 10/10/16 04:46 10/10/16 04:46 Oncology - Results - Labs Labs: Short CBC 10/09/16 10/10/16 Range/Units 15:15 04:35 WBC 17.0 H (4.3-11.1) K/mcL Hgb 8.2 L 7.8 L (12.9-16.9) g/dL Hct 27.9 L 26.1 L (37.5-50.1) % Plt Count 592 H (140-400) K/mcL Neutrophils # 10.5 H (1.6-8.9) K/mcL BMP 10/10/16 04:35 Sodium 139 Potassium 4.7 H Chloride 112 H Carbon Dioxide 17 L BUN 84 H Creatinine 2.60 H Glucose 105 H Calcium 8.2 L Consult Discharge Plan - Plan Referrals: NO,PCP [Primary Care Provider] -
[2016-10-10] MEDS: Aspirin Enteric Coated 325 MG Tablet PO SCH (09:29)
[2016-10-10] MEDS: Sennosides/Docusate Sodium TABLET PO SCH ×2 (09:29→21:17)
[2016-10-10] MEDS: Gabapentin 300 MG CAPSULE PO SCH ×3 (10:30→21:38)
--- NOTE | 2016-10-10 11:12 | ECHO - Doppler Report ---
Echocardiogram Name: Osmany Rodríguez Date of Study: 10/09/2016 Date: 1935 Ht: 69.0 in Medical Record#: [id number] Age: 81 Wt: 220.0 lb Gender: Male BSA: 2.15 Order #: [id number] Location: [facility] Room #: [id number] Reading Physician: Lima Akbar DO Nuclear Scientist: Marga Bauer Ordering Physician: Anaid Moeller DO Primary Physician: None Indications: Congestive heart failure on exacerbation, Afib Impressions: LVEF 50%. Indeterminate diastolic function. Atypical septal motion. Moderately dilated RV with mild reduction in function. There is a D-shaped LV septum during diastole suggestive of RV volume overload. Calcified aortic valve with moderate reduction in leaflet excursion. Moderate aortic stenosis. Mild mitral regurgitation. Moderate tricuspid regurgitation. Mild pulmonic regurgitation. Estimated RVSP was 74 mmHg. Severe pulmonary hypertension. Left Ventricular Wall Motion: Rest Echo Findings The mid anterior septal, mid inferior lateral, basal anterior septal and basal inferior lateral byers were not visualized. All other wall segments showed normal motion. Findings: Study Quality * Technically sub-optimal due to body habitus. ECG Findings * Paced rhythm. Left Ventricle * Indeterminate diastolic function. * LVEF 50%. Mitral Valve * No mitral stenosis. * Mildly calcified mitral valve leaflets. * Mild mitral annular calcification * Mild mitral regurgitation. Left Atrium * Severely dilated left atrium. Tricuspid Valve * Tricuspid valve not well visualized. * Moderate tricuspid regurgitation. * Estimated RA pressure is 15 mmHg. * Estimated RVSP is 74 mmHg. * Severe pulmonary hypertension. Pulmonic Valve * Pulmonic valve is not well visualized. * No pulmonic stenosis. * Mild pulmonic regurgitation. Pulmonary Artery * Pulmonary artery not well visualized. Aortic Valve * Moderate aortic stenosis. * The estimated aortic valve area was approximately 1.18 cm2. * Moderately calcified aortic valve leaflets. * No aortic regurgitation. Right Atrium * Moderately dilated right atrium. Right Ventricle * Moderately dilated with mild reduction in function. Interatrial Septum * No evidence of PFO by color Doppler. IVC * The IVC is dilated. * < 50% respiratory change. Pericardium * There is no pericardial effusion present. Aorta * Normally sized aortic root. History Hypertension Hypercholesteremia History of CAD/PTCA Myocardial Infarction Congestive Heart Failure Pacer/ICD Implant Measurements: BP: 109/ 60 2D Normal Values IVSd: 1.10 cm 0.6 - 1.0 cm LVIDd: 4.50 cm 3.7 - 5.6 cm LVPWd: 1.10 cm 0.6 - 1.1 cm LVIDs: 3.30 cm 1.5 - 3.6 cm AO: 2.80 cm < 4.0 cm LA: 5.20 cm 2.0 - 4.0cm %FS: 26.70 cm >25 % LVOT Diam: 2.10 cm LA volume: 138 Mitral Valve Peak E:1.38 m/sec Peak E' Lat Tj:17 cm/s Peak E' Med Tj:4.78 cm/s E/E' Lat Ratio:8.1 E/E' Med Ratio:28.9 LVOT Peak Tj:1.01 m/sec Mean Tj:.65 m/sec Peak Grad:4.00 mmHg Mean Grad:2.00 mmHg Aortic Valve Peak Tj:2.63 m/sec Mean Tj:1.89 m/sec Peak Grad:28.00 mmHg Mean Grad:16.00 mmHg Valve Area:1.18 cm2 Tricuspid Valve TV Regurg Peak Grad: 59.00mmHg TV Regurg Peak Tj: 3.84m/sec Updated by Lima Akbar on 10/10/2016 11:00:32 AM electronically signed on 10/10/2016 11:07:16 AM with status of Final Wall Motion Walker: 1=Normal, 2=Hypokinesis, 3=Akinesis, 4=Dyskinesis, 5=Aneurysmal, 6=Hyperkinetic, X=Not Visualized (Blank)=Missing
--- NOTE | 2016-10-10 13:13 | Nephrology Consult Note ---
Date of Encounter: 10/10/16 Time of Encounter: 13:11 Assessment and Plan (1) Acute on chronic kidney failure Current Visit: No Status: Acute The patient has acute kidney injury superimposed on chronic kidney disease. No longer has hydronephrosis on the right. He recently had lithotripsy of a right ureteral calculus and subsequent right ureteral stent placement. He has weakness that may be treatable to severe anemia possibly related to GI blood loss as the patient previously had been on anticoagulation for his atrial fibrillation. Patient's renal function is now improving with supportive treatment. At this point I will continue with the current medical regimen. He may need to have a further workup for possible GI blood loss. We will continue to monitor his renal function. (2) Acute blood loss anemia Current Visit: No Status: Acute (3) Kidney stones Current Visit: No Status: Acute (4) Atrial fibrillation Current Visit: No Status: Chronic Qualifiers: Atrial fibrillation type: chronic Qualified Code(s): I48.2 - Chronic atrial fibrillation History of Present Illness - History of Present Illness This is a 89-year-old female who seen in consultation for acute kidney injury superimposed on chronic kidney disease. Patient has a history of underlying chronic kidney disease with a baseline creatinine ranging from 1.3-1.76. Patient was admitted with progressive weakness. He was noted to be quite anemic with hemoglobin 7.1. He did undergo transfusion with 2 units of packed red blood cells. On admission his creatinine was 3.20. During the course of his hospitalization creatinine is improved on the 2.60. Patient has a history of a right ureteral calculus causing right hydronephrosis. This was documented at [facility]. The urologist at [facility] subsequently did lithotripsy and placed a right ureteral stent. The stent remains in place confirmed by a CAT scan done during this hospital stay. An ultrasound done during this Hospital stay this shows that the hydronephrosis has resolved. Currently the patient says he is feeling better. He has a good appetite denies any nausea vomiting or any pain. He denies any shortness of breath. HX of atrial fibrillation as well as some lower extremity swelling. Past Med Surg Social Fam HX - Past Medical History Medical history: arthritis, atrial fibrillation, dementia, hyperlipidemia, hypertension, kidney stones, myocardial infarction, renal disease Psychiatric history: no psych history - Past Surgical History Surgical History: hip replacement, pacemaker/AICD, other - Social History Smoking Status: Never smoker Smokeless Tobacco Status: No Alcohol use: none Drug use: none - Family History Mother Living Status: Hx Family Cardiac Disorders: Yes (CHF) Medications and Allergies Amlodipine [Norvasc] 5 mg PO DAILY 10/08/16 [History] Apixaban [Eliquis] 5 mg PO BID 10/08/16 [History] Aspirin [Ecotrin] 325 mg PO DAILY 10/08/16 [History] Carvedilol [Coreg] 6.25 mg PO BIDWM 10/08/16 [History] Donepezil [Aricept] 5 mg PO HS 10/08/16 [History] Furosemide [Lasix] 40 mg PO BID 10/08/16 [History] Simvastatin [Zocor] 80 mg PO HS 10/08/16 [History] Tamsulosin [Flomax] 0.4 mg PO DAILY 10/08/16 [History] TraZODone 50 mg PO HS 10/08/16 [History] Gabapentin [Neurontin] 300 mg PO BID 10/09/16 [History] Gabapentin [Neurontin] 600 mg PO QAM 10/09/16 [History] Levothyroxine [Synthroid] 125 mcg PO DAILY 10/09/16 [History] Zolpidem [Ambien] 5 mg PO HS PRN 10/09/16 [History] Allergies No Known Allergies Allergy (Verified 10/09/16 10:28) Review of Systems Constitutional: weakness Eyes: bilateral: blurred vision (patient denies), diplopia (patient denies) Nose, mouth and throat: no dizziness, no headache(s) Cardiovascular: dyspnea on exertion, edema, irregular heart rhythm, leg edema Respiratory: dyspnea on exertion Gastrointestinal: no abdominal pain, no change in bowel habits Musculoskeletal: no muscle weakness, no numbness Integumentary: no hirsutism, no striae Neurological: as per HPI, weakness Psychiatric: no depression, no difficulty concentrating Endocrine: as per HPI Hematologic/Lymphatic: no easy bruising, no lymphadenopathy Exam - Vital Signs Vital signs: Initial Vital Signs Temp Pulse Resp BP Pulse Ox 97.8 F 63 17 101/49 100 10/08/16 09:52 10/08/16 09:52 10/08/16 09:52 10/08/16 09:52 10/08/16 09:52 Vital Signs - Last 8 Hours Temp Pulse Resp BP Pulse Ox 10/10/16 11:51 97.6 F 60 18 108/68 96 10/10/16 07:54 97.8 F 73 18 135/87 95 Intake and Output 10/09/16 10/10/16 10/10/16 23:59 07:59 15:59 Intake Total 360 / 360 Output Total 475 / 475 Balance -475 / -475 360 / 360 Intake: Oral 360 / 360 Output: Urine 475 / 475 Other: Meal Breakfast Percent of Meal Consumed 100% - General Appearance Exam: The patient appears alert and oriented. He is in no acute distress. Neck is supple. Carotids show no bruits. Lungs diminished breath sounds otherwise clear to auscultation. No wheezing rales or rhonchi. Heart irregular rate and rhythm consistent with atrial fibrillation. Abdomen shows normal bowel sounds. No bruits masses again megaly or tenderness. Lower extremities show 1+ lower extremity swelling. There are no abnormal skin rashes. Results - Lab Results 10/10/16 04:35 10/10/16 04:35 Most recent lab results Calcium 8.2 mg/dL (8.6-10.8) L 10/10/16 04:35 Phosphorus 5.4 mg/dL (2.3-4.7) H 10/09/16 04:29 Magnesium 3.0 mg/dL (1.6-2.6) H 10/09/16 04:29 Urine Creatinine 68 mg/dL 10/09/16 22:30 Urine Sodium 32.0 mEq/L 10/09/16 22:30 Urine Total Protein 22 mg/dL (1-14) H 10/09/16 22:30 Consult Discharge Plan - Plan Referrals: NO,PCP [Primary Care Provider] -
--- NOTE | 2016-10-10 13:18 | Internal Med Progress Note ---
<Jt Merino - Last Filed: 10/10/16 14:50> Date of Encounter: 10/10/16 Time of Encounter: 09:45 - Assessment and plan (1) Generalized weakness Current Visit: Yes Status: Acute Assessment and plan: likely secondary to underlying anemia, but possible infection as well PT/OT eval as per , patient is requiring more care on daily basis than she is able to provide, f/u manager social responsibility eval for d/c planning (2) Infection Current Visit: Yes Status: Acute Assessment and plan: Unclear of etiology of infection at the moment. Lungs are clear to auscultation , CT examination performed thus far are negative for potential source of infection. Urine culture shows cross-contamination. Blood cultures are negative so far. Patient continues to have leukocytosis with increasing number of band cells (24%) although patient afebrile this is concerning for possible infection. We will continue to treat with ceftriaxone and Levaquin We will continue to monitor (3) Anemia Current Visit: No Status: Acute Assessment and plan: Likely due to CKD and iron deficiency. FOBT (-). Patient has low iron. Patient does report some melena, though it is unclear how good the patients memory is. B12 and Folate normal. Patient received 2 units PRBCs yesterday. Hemoglobin has remained stable in recheck. Will continue to monitor Transfuse as necessary if hemoglobin below 7 Qualifiers: Anemia type: unspecified type Qualified Code(s): D64.9 - Anemia, unspecified (4) Dizziness Current Visit: Yes Status: Resolved Assessment and plan: Plan as above (5) Acute on chronic kidney failure Current Visit: No Status: Acute Assessment and plan: heavenly secondary obstrucive uropathy versus dehydration/poor oral intake recent hx of kidney stones s/p stent placement which has not been removed. Renal function improving with supportive treatment will continue IV fluids hold nephrotoxic agents at this time Nephrology following, appreciate recommendations for continued management/care (6) Atrial fibrillation Current Visit: No Status: Chronic Assessment and plan: Rate controlled Currently off anticoagulation as per primary cab driver due to recent new onset of diffuse bruising Qualifiers: Atrial fibrillation type: chronic Qualified Code(s): I48.2 - Chronic atrial fibrillation (7) HTN (hypertension) Current Visit: No Status: Chronic Assessment and plan: Noted to be hypotensive Will hold antihypertensive medications at this time continue to closely monitor BP Will bolus normal saline if needed Qualifiers: Hypertension type: essential hypertension Qualified Code(s): I10 - Essential (primary) hypertension (8) Alzheimers disease Current Visit: Yes Status: Chronic Assessment and plan: continue home meds Qualifiers: Alzheimer's disease onset: unspecified onset Dementia behavioral disturbance: without behavioral disturbance Qualified Code(s): G30.9 - Alzheimer's disease, unspecified; F02.80 - Dementia in other diseases classified elsewhere without behavioral disturbance (9) DVT prophylaxis Current Visit: No Status: Acute Assessment and plan: 5000 units heparin subcutaneous twice a day - Subjective Interval history: Patient by himself and return today. He is alert and oriented 3, but seems to be suffering some deficits in his memory. He told me his person for hospital admission was due to a dog bite. His nurse was present who indicated that dog bite was 6 months ago and he had a healed scar on his left lower extremity because of it. He reports no concerns/complaints today, stating that he is feeling well. His complaints of shortness of breath, chest pain, fever/chills. He states that he has had some "black stools" recently. He also states that he has had difficulty urinating, resulting in lack of strength of the stream. - Constitutional Vitals: Temp Pulse Resp BP Pulse Ox 97.6 F 60 18 108/68 96 10/10/16 11:51 10/10/16 11:51 10/10/16 11:51 10/10/16 11:51 10/10/16 11:51 General appearance: Present: A&O X 3, pleasant, no acute distress, obese, answers questions appropriately Exam: General: Cooperative, pleasant, no acute distress, alert and oriented 3, answers questions appropriately (but in accurately) Head: Normocephalic, atraumatic Eye: Conjunctiva pink, sclera anicteric, EOMI, PERRL Neck: Supple, trachea midline Respiratory: No accessory muscle usage, clear to auscultation bilaterally, no wheezes/rhonchi/rales appreciated Cardiovascular: Regular rate and rhythm, S1 and S2 present, no murmurs/rubs/ gallops/clicks appreciated GI/abdominal: Nondistended, nontender, soft, normal bowel sounds, no peritoneal signs Extremities: No calf tenderness, noncyanotic, no pedal edema appreciated, warm, lower extremity pulses palpable and symmetrical, scar on lower left extremity from reported a bite previously Neurological: Alert and oriented 3, no facial droop, no focal deficits Skin: Dry, intact, normal color Internal Medicine: Result - Labs CBC & Chem 7: 10/10/16 04:35 10/10/16 04:35 Labs: Short CBC 10/09/16 10/10/16 Range/Units 15:15 04:35 WBC 17.0 H (4.3-11.1) K/mcL Hgb 8.2 L 7.8 L (12.9-16.9) g/dL Hct 27.9 L 26.1 L (37.5-50.1) % Plt Count 592 H (140-400) K/mcL Neutrophils # 10.5 H (1.6-8.9) K/mcL BMP 10/10/16 04:35 Sodium 139 Potassium 4.7 H Chloride 112 H Carbon Dioxide 17 L BUN 84 H Creatinine 2.60 H Glucose 105 H Calcium 8.2 L - ABG Interpretation ABG results: PT/INR, D-dimer PT 18.1 Seconds (9.4-12.1) H 10/09/16 09:52 - Impressions Impressions Abdomen/Pelvis CT 10/09/16 12:45 IMPRESSION: No focal abscess identified. There is trace ascites, hepatomegaly, and right ureteral stent in good position. There is also a large right inguinal hernia containing numerous bowel loops and small amount of fluid. D/ / Regan Durant MD / Regan Durant MD Interpreting Provider: Regan Durant MD Retroperitoneum Ultrasound 10/09/16 13:30 IMPRESSION: No hydronephrosis. Right nephrolithiasis. Indwelling right ureteral stent. Moderately extensive changes suggestive of medical renal disease. D/ / Kane Hagan MD / Kane Hagan MD Interpreting Provider: Kane Hagan MD Chest CT 10/09/16 16:39 IMPRESSION: Negative CT of the chest. D/ / Americo Levin MD / Americo Levin MD Interpreting Provider: Americo Levin MD - VTE Documentation of Mechanical Device: Intermittent pneumatic compression device Consult Discharge Plan - Plan Referrals: NO,PCP [Primary Care Provider] - <Lg Stapleton P - Last Filed: 10/10/16 16:45> Date of Encounter: 10/10/16 - Constitutional Vitals: Temp Pulse Resp BP Pulse Ox 97.5 F L 59 18 111/67 97 10/10/16 15:34 10/10/16 15:34 10/10/16 15:34 10/10/16 15:34 10/10/16 15:34 Internal Medicine: Result - Labs CBC & Chem 7: 10/10/16 04:35 10/10/16 04:35 Labs: Short CBC 10/10/16 Range/Units 04:35 WBC 17.0 H (4.3-11.1) K/mcL Hgb 7.8 L (12.9-16.9) g/dL Hct 26.1 L (37.5-50.1) % Plt Count 592 H (140-400) K/mcL Neutrophils # 10.5 H (1.6-8.9) K/mcL BMP 10/10/16 04:35 Sodium 139 Potassium 4.7 H Chloride 112 H Carbon Dioxide 17 L BUN 84 H Creatinine 2.60 H Glucose 105 H Calcium 8.2 L - ABG Interpretation ABG results: PT/INR, D-dimer PT 18.1 Seconds (9.4-12.1) H 10/09/16 09:52 - Impressions Impressions Chest CT 10/09/16 16:39 IMPRESSION: Negative CT of the chest. D/ / Americo Levin MD / Americo Levin MD Interpreting Provider: Americo Levin MD - Attending Attestation I examined this patient and my medical decision-making was reviewed with the BALL THREAD MACHINE TENDER/PA/Advanced Practice Nurse/Resident Physician. I agree with the documented findings, disposition and treatment plan as described except to the extent set forth below. Not sure what the etiology of this ongoing problem. We will discuss with oncology tomorrow.
[2016-10-10] MEDS: traZODone 50 MG TABLET PO SCH (21:16)
[2016-10-10] MEDS: *HR* Heparin 5,000 UNIT/ML VIAL SQ SCH (21:17)
[2016-10-10] MEDS ORDERED: traZODone 50 MG TABLET PO ONE (22:56)
[2016-10-11 05:33] LABS: Nucleated Red Blood Cells 0.1 /100 WBC (0)
[2016-10-11 05:35] LABS: Hematocrit 27.2 % (37.5-50.1); Hemoglobin 7.9 g/dL (12.9-16.9); Immature Platelets 5.5 % (1.1-6.1); Mean Corpuscular Hemoglobin 29.5 pg (28.0-33.3); Mean Corpuscular Volume 101.5 fL (83.0-100.0); Mean Platelet Volume 10.4 fL (9.4-12.4); Platelet Count 738 K/mcL (140-400); Red Blood Count 2.68 M/mcL (4.19-5.50)
[2016-10-11] MEDS ORDERED: *HR* LORazepam 2 MG/ML VIAL IVP ONE (05:41)
[2016-10-11 05:45] LABS: BUN/Creatinine Ratio 33 (6-26); Blood Urea Nitrogen 73 mg/dL (8-26); Calcium 8.4 mg/dL (8.6-10.8); Carbon Dioxide 15 mEq/L (19-29); Chloride 112 mEq/L (98-109); Glucose 107 mg/dL (70-99); Osmolality,Calculated 312 (280-300); Potassium 4.8 mEq/L (3.5-4.5); Sodium 140 mEq/L (136-145); eGFR For African Americans 35 (> 60); eGFR For Non-African Americans 29 (> 60)
[2016-10-11 05:54] LABS: Lymphocytes # 3.2 K/mcL (0.6-4.6); Monocytes # 0.4 K/mcL (0.0-1.3); Neutrophils # 14.4 K/mcL (1.6-8.9)
[2016-10-11 05:55] LABS: Anisocytosis 1+ (Not Present); Basophils # 0.4 K/mcL (0.0-0.2); Macrocytosis Present (Not Present)
[2016-10-11 05:56] LABS: Basophilic Stippling 1+ (Not Present); Large Platelets Present (Not Present); Platelet Estimate Increased (Normal); Poikilocytosis 1+ (Not Present); Polychromasia 1+ (Not Present)
[2016-10-11 06:24] LABS: Uric Acid < 1.0 mg/dL (3.5-7.2)
[2016-10-11] MEDS: *HR* Morphine 2 MG/ML SYRINGE IVP PRN (06:32)
[2016-10-11] MEDS: *HR* Heparin 5,000 UNIT/ML VIAL SQ SCH (09:19)
[2016-10-11] MEDS: Aspirin Enteric Coated 325 MG Tablet PO SCH (09:23)
[2016-10-11] MEDS: Gabapentin 300 MG CAPSULE PO SCH ×3 (09:23→22:47)
[2016-10-11] MEDS: Sennosides/Docusate Sodium TABLET PO SCH ×2 (09:24→22:46)
--- NOTE | 2016-10-11 10:11 | Internal Med Progress Note ---
<Jt Merino - Last Filed: 10/11/16 10:09> Date of Encounter: 10/11/16 Time of Encounter: 09:00 - Assessment and plan (1) Generalized weakness Current Visit: Yes Status: Acute Assessment and plan: likely secondary to underlying anemia, but possible infection as well. Severe pain in penis and osito blood seen urine this morning Continue to monitor hemoglobin Pain control with morphine and Hartley as needed Obtain urology consult Continue ceftriaxone and Levaquin day 3 Obtain additional UA PT/OT eval as per , patient is requiring more care on daily basis than she is able to provide, f/u social media community manager eval for d/c planning (2) Infection Current Visit: Yes Status: Acute Assessment and plan: Unclear of etiology of infection at the moment. Lungs are clear to auscultation , CT examination performed thus far are negative for potential source of infection. Urine culture shows cross-contamination. Blood cultures are negative so far. Patient continues to have leukocytosis with increasing number of band cells (24%) although patient afebrile this is concerning for possible infection. We will continue to treat with ceftriaxone and Levaquin day 3 Plan as above We will continue to monitor (3) Anemia Current Visit: No Status: Acute Assessment and plan: Likely due to CKD and iron deficiency. FOBT (-). Patient has low iron. Patient does report some melena, though it is unclear how good the patients memory is. B12 and Folate normal. Patient received 2 units PRBCs yesterday. Hemoglobin has remained stable in recheck. Severe pain patient penis with frankly bloody urine seen this morning Postop patient heparin Plan as above Will continue to monitor Transfuse as necessary if hemoglobin below 7 Qualifiers: Anemia type: unspecified type Qualified Code(s): D64.9 - Anemia, unspecified (4) Dizziness Current Visit: Yes Status: Resolved Assessment and plan: Plan as above (5) Acute on chronic kidney failure Current Visit: No Status: Acute Assessment and plan: heavenly secondary obstrucive uropathy versus dehydration/poor oral intake recent hx of kidney stones s/p stent placement which has not been removed. Renal function improving with supportive treatment Kidney function slightly improved today will continue IV fluids hold nephrotoxic agents at this time Nephrology following, appreciate recommendations for continued management/care (6) Atrial fibrillation Current Visit: No Status: Chronic Assessment and plan: Rate controlled Currently off anticoagulation as per primary oil filters inspector due to recent new onset of diffuse bruising Qualifiers: Atrial fibrillation type: chronic Qualified Code(s): I48.2 - Chronic atrial fibrillation (7) HTN (hypertension) Current Visit: No Status: Chronic Assessment and plan: Noted to be hypotensive Will hold antihypertensive medications at this time continue to closely monitor BP Will bolus normal saline if needed Qualifiers: Hypertension type: essential hypertension Qualified Code(s): I10 - Essential (primary) hypertension (8) Alzheimers disease Current Visit: Yes Status: Chronic Assessment and plan: continue home meds Qualifiers: Alzheimer's disease onset: unspecified onset Dementia behavioral disturbance: without behavioral disturbance Qualified Code(s): G30.9 - Alzheimer's disease, unspecified; F02.80 - Dementia in other diseases classified elsewhere without behavioral disturbance (9) DVT prophylaxis Current Visit: No Status: Acute Assessment and plan: We will stop patient heparin in light of osito bloody urine We will continue EPCDs - Subjective Interval history: Patient reports having severe pain in his penis is morning, he also reports osito blood with urination. He has no other complaints this morning. He denies fever/chills, denies chest pain, denies shortness of breath, denies cough , denies flank pain. - Constitutional Vitals: Temp Pulse Resp BP Pulse Ox 98.1 F 71 16 127/71 97 10/11/16 07:55 10/11/16 07:55 10/11/16 07:55 10/11/16 07:55 10/11/16 07:55 General appearance: Present: A&O X 3, pleasant, no acute distress, obese, answers questions appropriately Exam: General: Cooperative, pleasant, no acute distress, alert and oriented 3, answers questions appropriately Head: Normocephalic, atraumatic, oromucosa moist, no erythema appreciated, no masses or abscesses palpated and patient mouth Eye: Conjunctiva pink, sclera anicteric, EOMI, PERRL Neck: Supple, trachea midline Respiratory: No accessory muscle usage, clear to auscultation bilaterally, no wheezes/rhonchi/rales appreciated Cardiovascular: Regular rate and rhythm, S1 and S2 present, no murmurs/rubs/ gallops/clicks appreciated Back: No CVA tenderness, no tenderness on spine, healing ecchymosis observed on upper left back GI/abdominal: Nondistended, nontender, soft, normal bowel sounds, no peritoneal signs Extremities: No calf tenderness, noncyanotic, no pedal edema appreciated, warm, lower extremity pulses palpable and symmetrical, increased erythema on bilateral thighs (likely stasis dermatitis) Rectal: No unusual masses palpated, enlarged prostate, no osito blood Urogenital: Bloody urethral meatus, no abnormality seen Neurological: Alert and oriented 3, no facial droop, no focal deficits Skin: Dry, intact, normal color Internal Medicine: Result - Labs CBC & Chem 7: 10/11/16 04:57 10/11/16 04:57 Labs: Short CBC 10/11/16 Range/Units 04:57 WBC 20.0 H (4.3-11.1) K/mcL Hgb 7.9 L (12.9-16.9) g/dL Hct 27.2 L (37.5-50.1) % Plt Count 738 H (140-400) K/mcL Neutrophils # 14.4 H (1.6-8.9) K/mcL BMP 10/11/16 04:57 Sodium 140 Potassium 4.8 H Chloride 112 H Carbon Dioxide 15 L BUN 73 H Creatinine 2.19 H Glucose 107 H Calcium 8.4 L - ABG Interpretation ABG results: PT/INR, D-dimer PT 18.1 Seconds (9.4-12.1) H 10/09/16 09:52 - VTE Documentation of Mechanical Device: Intermittent pneumatic compression device Consult Discharge Plan - Plan Referrals: NO,PCP [Primary Care Provider] - <Lg Stapleton P - Last Filed: 10/11/16 17:58> Date of Encounter: 10/11/16 - Constitutional Vitals: Temp Pulse Resp BP Pulse Ox 97.7 F 64 16 125/75 98 10/11/16 15:14 10/11/16 15:14 10/11/16 15:14 10/11/16 15:14 10/11/16 15:14 Internal Medicine: Result - Labs CBC & Chem 7: 10/11/16 04:57 10/11/16 04:57 Labs: Short CBC 10/11/16 Range/Units 04:57 WBC 20.0 H (4.3-11.1) K/mcL Hgb 7.9 L (12.9-16.9) g/dL Hct 27.2 L (37.5-50.1) % Plt Count 738 H (140-400) K/mcL Neutrophils # 14.4 H (1.6-8.9) K/mcL BMP 10/11/16 04:57 Sodium 140 Potassium 4.8 H Chloride 112 H Carbon Dioxide 15 L BUN 73 H Creatinine 2.19 H Glucose 107 H Calcium 8.4 L Urine 10/11/16 Range/Units 09:32 Urine Color Red A (Yellow) Urine Clarity Cloudy A (Clear) Urine pH 6.5 (5.0-8.0) pH Units Ur Specific Plover 1.022 (1.010-1.025) Urine Protein >=1000 H (Neg-Trace) mg/dL Urine Glucose (UA) Normal (Normal) mg/dL - ABG Interpretation ABG results: PT/INR, D-dimer PT 18.1 Seconds (9.4-12.1) H 10/09/16 09:52 - Attending Attestation I examined this patient and my medical decision-making was reviewed with the EDGE FINISHER/PA/Advanced Practice Nurse/Resident Physician. I agree with the documented findings, disposition and treatment plan as described except to the extent set forth below.
[2016-10-11 12:20] LABS: Bilirubin,Urine Negative (Negative); Blood,Urine Large (Negative); Clarity,Urine Cloudy (Clear); Color,Urine Red (Yellow); Glucose,Urine (UA) Normal (Normal); Ketones,Urine Negative (Negative); Leukocyte Esterase,Urine Small (Negative); Nitrite,Urine Negative (Negative); PH,Urine 6.5 pH Units (5.0-8.0); Protein,Urine >=1000 mg/dL (Neg-Trace); Specific Gravity,Urine 1.022 (1.010-1.025); Urobilinogen,Urine Normal (Normal)
[2016-10-11] MEDS: *HR* HYDROcodone/Acet 5/325 mg TABLET PO PRN (13:08)
[2016-10-11] MEDS ORDERED: Ferumoxytol 510 MG in 0.9 % Sodium Chloride 100 ML IVPB ONE (13:27)
--- NOTE | 2016-10-11 13:27 | Nephrology Progress Note ---
Date of Encounter: 10/11/16 Time of Encounter: 13:25 - Assessment and Plan (1) Acute on chronic kidney failure Current Visit: No Status: Acute The patient's renal function continues to improve with IV fluids. Creatinine is down to 2.19. Baseline is around 1.7. Patient's hemoglobin is low but stable. He is iron deficient. We will provide some parenteral iron. Urology will be consulted to see if the right ureteral stent can be removed. Patient may require repeat cultures because of the increasing white count. (2) Acute blood loss anemia Current Visit: No Status: Acute (3) Kidney stones Current Visit: No Status: Acute (4) Atrial fibrillation Current Visit: No Status: Chronic Qualifiers: Atrial fibrillation type: chronic Qualified Code(s): I48.2 - Chronic atrial fibrillation Subjective Interval history: The patient is having some gross hematuria and straining with urination as well as some abdominal and flank pain. Urology is consulted to see if the ureteral stent can be removed. The patient's white count is increasing. Previous urine culture is growing mixed lisandro. Blood cultures are negative. The patient is on empiric antibiotics. Objective - Vital Signs Vital signs: Vital Signs Temp Pulse Resp BP BP BP Pulse Ox 10/11/16 11:40 97.6 F 70 16 87/63 97 10/11/16 07:55 98.1 F 71 16 127/71 97 10/11/16 05:10 98 10/10/16 20:19 103/60 104/62 10/10/16 20:04 98 F 65 20 111/76 Intake and Output 10/10/16 10/11/16 10/11/16 23:59 07:59 15:59 Intake Total 0 / 240 220 / 220 Output Total 325 / 735 200 / 200 Balance -325 / -495 20 / 20 Intake: IV Fluids 100 / 100 Rocephin 1,000 MG In 100 / 100 Dextrose 5% (Minibag+) 100 ML 100 ML @ 200 mls/ hr IVPB DAILY [facility] Rx#: [id number] Oral 0 / 240 120 / 120 Output: Urine 325 / 735 200 / 200 Other: Meal Breakfast Percent of Meal Consumed 85% Stool Size Small # Voids 1 # Bowel Movements 1 - General Appearance Exam: Patient is alert. He is in no acute distress. Lungs sounds otherwise clear. Heart regular rate and rhythm. Rhythm is paced on the monitoring manager. Abdomen is benign. There is some mild lower extremity swelling. - Lab 10/11/16 04:57 10/11/16 04:57 Most recent lab results Calcium 8.4 mg/dL (8.6-10.8) L 10/11/16 04:57 Phosphorus 5.4 mg/dL (2.3-4.7) H 10/09/16 04:29 Magnesium 3.0 mg/dL (1.6-2.6) H 10/09/16 04:29 Urine Creatinine 68 mg/dL 10/09/16 22:30 Urine Sodium 32.0 mEq/L 10/09/16 22:30 Urine Total Protein 22 mg/dL (1-14) H 10/09/16 22:30 - VTE Documentation of Mechanical Device: Intermittent pneumatic compression device Consult Discharge Plan - Plan Referrals: NO,PCP [Primary Care Provider] -
--- NOTE | 2016-10-11 17:21 | Urology - Consult Note ---
Date of Encounter: 10/11/16 Time of Encounter: 17:18 - Assessment and Plan (1) UTI (urinary tract infection) Current Visit: Yes Status: Acute Assessment and plan: I was able to place a catheter today. His previous urine culture was contaminated. I have obtained a catheterized urine sample, and we will send that for culture. Otherwise, continue the ceftriaxone until this urine culture returns. Hematuria may be due to his history of Eliquisff and heparin subcu. Qualifiers: Urinary tract infection type: acute cystitis Hematuria presence: without hematuria Qualified Code(s): N30.00 - Acute cystitis without hematuria (2) Ureterolithiasis Current Visit: No Status: Acute Assessment and plan: I reviewed his CT scan. I saw no evidence of residual stone. We will keep the stent in place for now as he has some renal insufficiency. A catheter has been inserted initiated maximally drain his bladder. We'll follow his renal function. (3) Hematuria Current Visit: Yes Status: Acute Assessment and plan: We will keep the catheter in place. It is okay to hand irrigate as needed. Urology CN:HPI Consult date: 10/11/16 Reason for consult Urology: Other (history of stones) Requesting physician: Reg Aguirre History of present illness: 81 year old man with a history of nephrolithiasis was admitted on 10/09/2016. He had a cystoscopy and right ureteral stent placement on August 16, 2016. He had a distal stone at that time. He was cared for by Dr. Hsieh at [facility]. Based upon the notes it sounds like he underwent a right ureteroscopy and stone extraction on September 14, 2016. A stent was reinserted at that time. The pathology report describes a right proximal ureteral stone. Back on September 26, 2015 I treated him for some disease on the left side. 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 A solid organ mass has been identified, but further workup of the blood smear is being performed. He has some renal insufficiency as well and nephrology has been consult. Past Med Surg Social Fam HX - Past Medical History Medical history: arthritis, atrial fibrillation, dementia, hyperlipidemia, hypertension, kidney stones, myocardial infarction, renal disease Psychiatric history: no psych history - Past Surgical History Surgical History: hip replacement, pacemaker/AICD, other - Social History Smoking Status: Never smoker Smokeless Tobacco Status: No Alcohol use: none Drug use: none - Family History Mother Living Status: Hx Family Cardiac Disorders: Yes (CHF) Medications and Allergies Amlodipine [Norvasc] 5 mg PO DAILY 10/08/16 [History] Apixaban [Eliquis] 5 mg PO BID 10/08/16 [History] Aspirin [Ecotrin] 325 mg PO DAILY 10/08/16 [History] Carvedilol [Coreg] 6.25 mg PO BIDWM 10/08/16 [History] Donepezil [Aricept] 5 mg PO HS 10/08/16 [History] Furosemide [Lasix] 40 mg PO BID 10/08/16 [History] Simvastatin [Zocor] 80 mg PO HS 10/08/16 [History] Tamsulosin [Flomax] 0.4 mg PO DAILY 10/08/16 [History] TraZODone 50 mg PO HS 10/08/16 [History] Gabapentin [Neurontin] 300 mg PO BID 10/09/16 [History] Gabapentin [Neurontin] 600 mg PO QAM 10/09/16 [History] Levothyroxine [Synthroid] 125 mcg PO DAILY 10/09/16 [History] Zolpidem [Ambien] 5 mg PO HS PRN 10/09/16 [History] Allergies No Known Allergies Allergy (Verified 10/09/16 10:28) Review of Systems ROS unobtainable: due to mental status Exam Initial Vital Signs Temp Pulse Resp BP Pulse Ox 97.8 F 63 17 101/49 100 10/08/16 09:52 10/08/16 09:52 10/08/16 09:52 10/08/16 09:52 10/08/16 09:52 - General physical appearance Present: well developed, well nourished, no distress - Eyes Absent: icteric - ENT Present: normal nares - Neck Present: trachea midline - Respiratory Present: normal respiratory effort - Cardiovascular Cardiovascular exam IM: RRR - Abdomen Abdomen: Present: soft, suprapubic tenderness (mild suprapubic distension) - Genitourinary normal penis with no external lesions, testicles non-tender Urology Results - Labs 10/11/16 04:57 10/11/16 04:57 Abnormal lab results WBC 20.0 K/mcL (4.3-11.1) H 10/11/16 04:57 RBC 2.68 M/mcL (4.19-5.50) L 10/11/16 04:57 Hgb 7.9 g/dL (12.9-16.9) L 10/11/16 04:57 Hct 27.2 % (37.5-50.1) L 10/11/16 04:57 MCV 101.5 fL (83.0-100.0) H 10/11/16 04:57 MCHC 29.0 g/dL (31.6-35.5) L 10/11/16 04:57 RDW 20.0 % (11.5-14.5) H 10/11/16 04:57 Plt Count 738 K/mcL (140-400) H 10/11/16 04:57 Band Neutrophils % 10.0 % (0-4) H 10/11/16 04:57 Metamyelocytes % 4.0 % (0) H 10/11/16 04:57 Myelocytes % 2.0 % (0) H 10/11/16 04:57 Blast Cells % 2.0 % (0) H 10/11/16 04:57 Neutrophils # 14.4 K/mcL (1.6-8.9) H 10/11/16 04:57 Basophils # 0.4 K/mcL (0.0-0.2) H 10/11/16 04:57 Nucleated RBCs/100 WBC 0.1 /100 WBC (0) H 10/11/16 04:57 Toxic Granulation Present (Not Present) A 10/08/16 10:39 Platelet Estimate Increased (Normal) H 10/11/16 04:57 Large Platelets Present (Not Present) A 10/11/16 04:57 Polychromasia 1+ (Not Present) A 10/11/16 04:57 Poikilocytosis 1+ (Not Present) A 10/11/16 04:57 Basophilic Stippling 1+ (Not Present) A 10/11/16 04:57 Anisocytosis 1+ (Not Present) A 10/11/16 04:57 Macrocytosis Present (Not Present) A 10/11/16 04:57 Ovalocytes 1+ (Not Present) A 10/10/16 04:35 PT 18.1 Seconds (9.4-12.1) H 10/09/16 09:52 Potassium 4.8 mEq/L (3.5-4.5) H 10/11/16 04:57 Chloride 112 mEq/L (98-109) H 10/11/16 04:57 Carbon Dioxide 15 mEq/L (19-29) L 10/11/16 04:57 BUN 73 mg/dL (8-26) H 10/11/16 04:57 Creatinine 2.19 mg/dL (0.72-1.25) H 10/11/16 04:57 Est GFR ( Amer) 35 (> 60) L 10/11/16 04:57 Est GFR (Non-Af Amer) 29 (> 60) L 10/11/16 04:57 BUN/Creatinine Ratio 33 (6-26) H 10/11/16 04:57 Glucose 107 mg/dL (70-99) H 10/11/16 04:57 Calculated Osmolality 312 (280-300) H 10/11/16 04:57 Uric Acid < 1.0 mg/dL (3.5-7.2) L D 10/11/16 04:57 Calcium 8.4 mg/dL (8.6-10.8) L 10/11/16 04:57 Phosphorus 5.4 mg/dL (2.3-4.7) H 10/09/16 04:29 Magnesium 3.0 mg/dL (1.6-2.6) H 10/09/16 04:29 Iron 18 mcg/dL (65-175) L 10/09/16 09:49 % Saturation 4 % (20-55) L 10/09/16 09:49 Ur Specimen Adequacy See below A 10/11/16 09:32 Urine Color Red (Yellow) A 10/11/16 09:32 Urine Clarity Cloudy (Clear) A 10/11/16 09:32 Urine Protein >=1000 mg/dL (Neg-Trace) H 10/11/16 09:32 Urine Blood Large (Negative) H 10/11/16 09:32 Ur Leukocyte Esterase Small (Negative) H 10/11/16 09:32 Urine Microscopic RBC 30-50 per hpf (0-3) H 10/08/16 12:35 Urine Microscopic WBC 5-15 per hpf (0-3) H 10/08/16 12:35 Ur Squamous Epith Cells Moderate per lpf (None-Few) H 10/08/16 12:35 Ur Culture Indicated? YES (NO) A 10/11/16 09:32 Microalb/Creat Ratio 135 (0-30) H 10/09/16 22:30 Protein/Creatinin Ratio 0.32 mg/mg (0-0.20) H 10/09/16 22:30 Urine Total Protein 22 mg/dL (1-14) H 10/09/16 22:30 Diabetes panel 10/11/16 Range/Units 04:57 Sodium 140 (136-145) mEq/L Potassium 4.8 H (3.5-4.5) mEq/L Chloride 112 H (98-109) mEq/L Carbon Dioxide 15 L (19-29) mEq/L BUN 73 H (8-26) mg/dL Creatinine 2.19 H (0.72-1.25) mg/dL Glucose 107 H (70-99) mg/dL Calcium 8.4 L (8.6-10.8) mg/dL Calcium panel 10/11/16 Range/Units 04:57 Calcium 8.4 L (8.6-10.8) mg/dL Pituitary panel 10/11/16 Range/Units 04:57 Sodium 140 (136-145) mEq/L Potassium 4.8 H (3.5-4.5) mEq/L Chloride 112 H (98-109) mEq/L Carbon Dioxide 15 L (19-29) mEq/L BUN 73 H (8-26) mg/dL Creatinine 2.19 H (0.72-1.25) mg/dL Glucose 107 H (70-99) mg/dL Calcium 8.4 L (8.6-10.8) mg/dL Adrenal panel 10/11/16 Range/Units 04:57 Sodium 140 (136-145) mEq/L Potassium 4.8 H (3.5-4.5) mEq/L Chloride 112 H (98-109) mEq/L Carbon Dioxide 15 L (19-29) mEq/L BUN 73 H (8-26) mg/dL Creatinine 2.19 H (0.72-1.25) mg/dL Glucose 107 H (70-99) mg/dL Calcium 8.4 L (8.6-10.8) mg/dL All other labs normal. - Imaging CT scan - abdomen: report reviewed, image reviewed CT scan - pelvis: report reviewed, image reviewed Consult Discharge Plan - Plan Referrals: NO,PCP [Primary Care Provider] -
[2016-10-11] MEDS: traZODone 50 MG TABLET PO SCH (22:47)
[2016-10-12] MEDS: 0.9 % Sodium Chloride 1,000 ML IVC SCH ×3 (01:00→21:19)
[2016-10-12 06:08] LABS: Mean Platelet Volume 10.2 fL (9.4-12.4); Nucleated Red Blood Cells 0.1 /100 WBC (0); Red Cell Distribution Width 19.8 % (11.5-14.5)
[2016-10-12 06:10] LABS: Hematocrit 27.3 % (37.5-50.1); Hemoglobin 7.6 g/dL (12.9-16.9); Mean Corpuscular HGB Conc 27.8 g/dL (31.6-35.5); Mean Corpuscular Volume 104.2 fL (83.0-100.0); Platelet Count 577 K/mcL (140-400); Red Blood Count 2.62 M/mcL (4.19-5.50)
[2016-10-12 06:21] LABS: Albumin 3.1 g/dL (3.5-5.0); Calcium 8.5 mg/dL (8.6-10.8); Potassium 4.9 mEq/L (3.5-4.5); Total Protein 6.1 g/dL (6.0-8.3)
[2016-10-12 06:39] LABS: Basophils # 0.4 K/mcL (0.0-0.2); Large Platelets Present (Not Present); Lymphocytes # 3.6 K/mcL (0.6-4.6); Monocytes # 0.4 K/mcL (0.0-1.3); Neutrophils # 13.5 K/mcL (1.6-8.9); Platelet Estimate Increased (Normal)
[2016-10-12 06:41] LABS: Poikilocytosis 1+ (Not Present)
--- NOTE | 2016-10-12 07:54 | Urology Progress Note ---
Date of Encounter: 10/12/16 Time of Encounter: 07:50 - Assessment and Plan (1) UTI (urinary tract infection) Current Visit: Yes Status: Acute Assessment and plan: Urine culture sent from [facility] yesterday. Await results. Qualifiers: Urinary tract infection type: acute cystitis Hematuria presence: without hematuria Qualified Code(s): N30.00 - Acute cystitis without hematuria (2) Ureterolithiasis Current Visit: No Status: Acute Assessment and plan: 81 year old male with hematuria and stone disease. Continue stent for now. (3) Hematuria Current Visit: Yes Status: Acute Assessment and plan: Continue [facility]. Await resolution of hematuria as anticoagulants wean off. Progress Note Narrative: 81 year old man with nephrolithiasis, s/p right ureteroscopy and stent placement. He was on eliquis and has some bloody urine. Catheter placed yesterday. Urine is somewhat bloody. Objective Initial Vital Signs Temp Pulse Resp BP Pulse Ox 97.8 F 63 17 101/49 100 10/08/16 09:52 10/08/16 09:52 10/08/16 09:52 10/08/16 09:52 10/08/16 09:52 - General physical appearance Present: well developed, well nourished, no distress - Respiratory Present: normal respiratory effort - Abdomen Present: soft - Genitourinary Present: normal penis with no external lesions Urine Appearance: Present: Hematuria (Méndez colored urine.) - Labs 10/12/16 05:03 10/12/16 05:03 Diabetes panel 10/12/16 Range/Units 05:03 Sodium 142 (136-145) mEq/L Potassium 4.9 H (3.5-4.5) mEq/L Chloride 116 H (98-109) mEq/L Carbon Dioxide 18 L (19-29) mEq/L BUN 65 H (8-26) mg/dL Creatinine 2.04 H (0.72-1.25) mg/dL Glucose 107 H (70-99) mg/dL Calcium 8.5 L (8.6-10.8) mg/dL AST 19 (5-34) Units/L ALT 15 (0-55) Units/L Alkaline Phosphatase 161 H (38-126) Units/L Albumin 3.1 L (3.5-5.0) g/dL Calcium panel 10/12/16 Range/Units 05:03 Calcium 8.5 L (8.6-10.8) mg/dL Albumin 3.1 L (3.5-5.0) g/dL Pituitary panel 10/12/16 Range/Units 05:03 Sodium 142 (136-145) mEq/L Potassium 4.9 H (3.5-4.5) mEq/L Chloride 116 H (98-109) mEq/L Carbon Dioxide 18 L (19-29) mEq/L BUN 65 H (8-26) mg/dL Creatinine 2.04 H (0.72-1.25) mg/dL Glucose 107 H (70-99) mg/dL Calcium 8.5 L (8.6-10.8) mg/dL Adrenal panel 10/12/16 Range/Units 05:03 Sodium 142 (136-145) mEq/L Potassium 4.9 H (3.5-4.5) mEq/L Chloride 116 H (98-109) mEq/L Carbon Dioxide 18 L (19-29) mEq/L BUN 65 H (8-26) mg/dL Creatinine 2.04 H (0.72-1.25) mg/dL Glucose 107 H (70-99) mg/dL Calcium 8.5 L (8.6-10.8) mg/dL Total Bilirubin 1.0 (0.2-1.2) mg/dL AST 19 (5-34) Units/L ALT 15 (0-55) Units/L Alkaline Phosphatase 161 H (38-126) Units/L Albumin 3.1 L (3.5-5.0) g/dL - VTE Documentation of Mechanical Device: Intermittent pneumatic compression device Consult Discharge Plan - Plan Referrals: NO,PCP [Primary Care Provider] -
[2016-10-12] MEDS: Aspirin Enteric Coated 325 MG Tablet PO SCH (09:34)
[2016-10-12] MEDS: Gabapentin 300 MG CAPSULE PO SCH ×4 (09:34→21:20)
[2016-10-12] MEDS: Sennosides/Docusate Sodium TABLET PO SCH ×2 (09:35→21:20)
--- NOTE | 2016-10-12 12:16 | Nephrology Progress Note ---
Date of Encounter: 10/12/16 Time of Encounter: 12:05 - Assessment and Plan (1) Acute on chronic kidney failure Current Visit: No Status: Acute MAGGIE/CKD in setting of nephrolithiasis, s/p right ureteroscopy and stent placement. Renal fct stable, may be his baseline. Good urine output, staff states emptied 1000cc this AM. Will continue to follow. Subjective Interval history: Sitting up in chair, states feeling good. Huang catheter with with hematuric urine. Objective - Vital Signs Vital signs: Vital Signs Temp Pulse Resp BP Pulse Ox 10/12/16 11:00 63 17 127/88 91 L 10/12/16 07:00 73 16 145/90 95 10/12/16 03:00 72 16 123/89 98 10/11/16 21:00 97 10/11/16 15:14 97.7 F 64 16 125/75 98 Intake and Output 10/11/16 10/12/16 10/12/16 23:59 07:59 15:59 Intake Total 240 / 240 1480 / 1480 Output Total 300 / 300 700 / 700 Balance 240 / 240 -300 / -300 780 / 780 Intake: IV Fluids 1000 / 1000 0.9 % Sodium Chloride 1, 1000 / 1000 000 ML @ 120 mls/hr IVC . [id number] [facility] Rx#:[id number] Oral 240 / 240 480 / 480 Output: Catheter 300 / 300 700 / 700 Other: Meal Dinner Breakfast Percent of Meal Consumed 90% 100% Weight 99.7 kg Patient Weight 10/12/16 23:59 Weight 99.7 kg - General Appearance General appearance: Present: well-developed, well-nourished, appears started age EENT: Present: mucous membranes moist Neck: Present: no JVD Respiratory: Present: clear Cardiology: Present: no edema, regular rate, regular rhythm Gastrointestinal: Present: normoactive bowel sounds, no tenderness Integumentary: Present: warm and dry Neurologic: Present: alert and oriented x3 Psychiatric: Present: mood/affect appropriate, cooperative - Lab 10/12/16 05:03 10/12/16 05:03 Most recent lab results Calcium 8.5 mg/dL (8.6-10.8) L 10/12/16 05:03 Phosphorus 5.4 mg/dL (2.3-4.7) H 10/09/16 04:29 Magnesium 3.0 mg/dL (1.6-2.6) H 10/09/16 04:29 Urine Creatinine 68 mg/dL 10/09/16 22:30 Urine Sodium 32.0 mEq/L 10/09/16 22:30 Urine Total Protein 22 mg/dL (1-14) H 10/09/16 22:30 - VTE Documentation of Mechanical Device: Intermittent pneumatic compression device Consult Discharge Plan - Plan Instructions: Atrial Fibrillation (DC), Kidney Stones (DC), Kidney Stones (GEN) , Urinary Tract Infection in Men (DC), Acute Hematuria (DC), Acute Hematuria ( GEN), Chronic Hypertension (DC), Alzheimer Disease, 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
--- NOTE | 2016-10-12 16:29 | Internal Med Progress Note ---
<Jt Merino - Last Filed: 10/12/16 16:26> Date of Encounter: 10/12/16 Time of Encounter: 11:30 - Assessment and plan (1) Generalized weakness Current Visit: Yes Status: Acute Assessment and plan: likely secondary to underlying anemia, but possible infection as well. Severe pain in penis and osito blood seen urine this morning Continue to monitor hemoglobin Pain control with morphine and [place] as needed Obtain urology consult, appreciate recommendations for continuing management/ care Continue ceftriaxone and Levaquin day 4, though urine culture negative for bacteria PT/OT eval as per , patient is requiring more care on daily basis than she is able to provide, f/u social services manager eval for d/c planning (2) Infection Current Visit: Yes Status: Acute Assessment and plan: Unclear of etiology of infection at the moment. Lungs are clear to auscultation , CT examination performed thus far are negative for potential source of infection. Urine culture shows cross-contamination. Blood cultures are negative so far. Patient continues to have leukocytosis with increasing number of band cells (24%) although patient afebrile this is concerning for possible infection. We will continue to treat with ceftriaxone and Levaquin day 4 We will discontinue antibiotics tomorrow Plan as above We will continue to monitor (3) Anemia Current Visit: No Status: Acute Assessment and plan: Likely due to CKD and iron deficiency. FOBT (-). Patient has low iron. Patient does report some melena, though it is unclear how good the patients memory is. B12 and Folate normal. Patient received 2 units PRBCs yesterday. Hemoglobin has remained stable in recheck. Severe pain patient penis with frankly bloody urine seen this morning. Continuing to have hematuria, but not as much as before Postop patient heparin Plan as above Will continue to monitor Transfuse as necessary if hemoglobin below 7 Qualifiers: Anemia type: unspecified type Qualified Code(s): D64.9 - Anemia, unspecified (4) Dizziness Current Visit: Yes Status: Resolved Assessment and plan: Plan as above (5) Acute on chronic kidney failure Current Visit: No Status: Acute Assessment and plan: heavenly secondary obstrucive uropathy versus dehydration/poor oral intake recent hx of kidney stones s/p stent placement which has not been removed. Renal function improving with supportive treatment Kidney function slightly improved today will continue IV fluids hold nephrotoxic agents at this time Patient developed hematuria with severe penile pain yesterday, no longer has pain in penis for continued hematuria. Hematuria not as bad as yesterday Nephrology following, appreciate recommendations for continued management/care (6) Atrial fibrillation Current Visit: No Status: Chronic Assessment and plan: Rate controlled Currently off anticoagulation as per primary jig hand due to recent new onset of diffuse bruising Qualifiers: Atrial fibrillation type: chronic Qualified Code(s): I48.2 - Chronic atrial fibrillation (7) HTN (hypertension) Current Visit: No Status: Chronic Assessment and plan: Noted to be hypotensive Will hold antihypertensive medications at this time continue to closely monitor BP Will bolus normal saline if needed Qualifiers: Hypertension type: essential hypertension Qualified Code(s): I10 - Essential (primary) hypertension (8) Alzheimers disease Current Visit: Yes Status: Chronic Assessment and plan: continue home meds Qualifiers: Alzheimer's disease onset: unspecified onset Dementia behavioral disturbance: without behavioral disturbance Qualified Code(s): G30.9 - Alzheimer's disease, unspecified; F02.80 - Dementia in other diseases classified elsewhere without behavioral disturbance (9) DVT prophylaxis Current Visit: No Status: Acute Assessment and plan: We will stop patient heparin in light of osito bloody urine We will continue EPCDs - Subjective Interval history: Patient reports doing well today, no concerns/complaints. States that the pain he was having yesterday has since resolved so he is continuing to have some blood in his urine. He denies fever/chills, denies chest pain, denies shortness of breath, denies flank pain, denies cough. - Constitutional Vitals: Temp Pulse Resp BP Pulse Ox 97.7 F 63 17 127/88 91 L 10/11/16 15:14 10/12/16 11:00 10/12/16 11:00 10/12/16 11:00 10/12/16 11:00 General appearance: Present: A&O X 3, pleasant, no acute distress, obese, answers questions appropriately Exam: General: Cooperative, pleasant, no acute distress, alert and oriented 3, answers questions appropriately Head: Normocephalic, atraumatic Eye: Conjunctiva pink, sclera anicteric, EOMI, PERRL Neck: Supple, trachea midline Respiratory: No accessory muscle usage, clear to auscultation bilaterally, no wheezes/rhonchi/rales appreciated Cardiovascular: Regular rate and rhythm, S1 and S2 present, no murmurs/rubs/ gallops/clicks appreciated GI/abdominal: Nondistended, nontender, soft, normal bowel sounds, no peritoneal signs Extremities: No calf tenderness, noncyanotic, no pedal edema appreciated, warm, lower extremity pulses palpable and symmetrical, increased erythema on bilateral thighs (likely stasis dermatitis) Neurological: Alert and oriented 3, no facial droop, no focal deficits Skin: Dry, intact, normal color Internal Medicine: Result - Labs CBC & Chem 7: 10/12/16 05:03 10/12/16 05:03 Labs: Short CBC 10/12/16 Range/Units 05:03 WBC 17.8 H (4.3-11.1) K/mcL Hgb 7.6 L (12.9-16.9) g/dL Hct 27.3 L (37.5-50.1) % Plt Count 577 H (140-400) K/mcL Neutrophils # 13.5 H (1.6-8.9) K/mcL BMP 10/12/16 05:03 Sodium 142 Potassium 4.9 H Chloride 116 H Carbon Dioxide 18 L BUN 65 H Creatinine 2.04 H Glucose 107 H Calcium 8.5 L Liver Function 10/12/16 Range/Units 05:03 Total Bilirubin 1.0 (0.2-1.2) mg/dL AST 19 (5-34) Units/L ALT 15 (0-55) Units/L Alkaline Phosphatase 161 H (38-126) Units/L Albumin 3.1 L (3.5-5.0) g/dL - ABG Interpretation ABG results: PT/INR, D-dimer PT 18.1 Seconds (9.4-12.1) H 10/09/16 09:52 - VTE Documentation of Mechanical Device: Intermittent pneumatic compression device Consult Discharge Plan - Plan Instructions: Atrial Fibrillation (DC), Kidney Stones (DC), Kidney Stones (GEN) , Urinary Tract Infection in Men (DC), Acute Hematuria (DC), Acute Hematuria ( GEN), Chronic Hypertension (DC), Alzheimer Disease, [place] [employer] (GEN), Kidney Stones, [place] [employer] (GEN) Referrals: NO,PCP [Primary Care Provider] - <Lg Stapleton P - Last Filed: 10/12/16 18:47> Date of Encounter: 10/12/16 - Constitutional Vitals: Temp Pulse Resp BP Pulse Ox 97.7 F 63 17 127/88 91 L 10/11/16 15:14 10/12/16 11:00 10/12/16 11:00 10/12/16 11:00 10/12/16 11:00 Internal Medicine: Result - Labs CBC & Chem 7: 10/12/16 05:03 10/12/16 05:03 Labs: Short CBC 10/12/16 Range/Units 05:03 WBC 17.8 H (4.3-11.1) K/mcL Hgb 7.6 L (12.9-16.9) g/dL Hct 27.3 L (37.5-50.1) % Plt Count 577 H (140-400) K/mcL Neutrophils # 13.5 H (1.6-8.9) K/mcL BMP 10/12/16 05:03 Sodium 142 Potassium 4.9 H Chloride 116 H Carbon Dioxide 18 L BUN 65 H Creatinine 2.04 H Glucose 107 H Calcium 8.5 L Liver Function 10/12/16 Range/Units 05:03 Total Bilirubin 1.0 (0.2-1.2) mg/dL AST 19 (5-34) Units/L ALT 15 (0-55) Units/L Alkaline Phosphatase 161 H (38-126) Units/L Albumin 3.1 L (3.5-5.0) g/dL - ABG Interpretation ABG results: PT/INR, D-dimer PT 18.1 Seconds (9.4-12.1) H 10/09/16 09:52 - Attending Attestation I examined this patient and my medical decision-making was reviewed with the CERTIFIED PEER SPECIALIST/PA/Advanced Practice Nurse/Resident Physician. I agree with the documented findings, disposition and treatment plan as described except to the extent set forth below.
[2016-10-12] MEDS: traZODone 50 MG TABLET PO SCH (21:20)
[2016-10-13 05:07] LABS: Mean Platelet Volume 10.1 fL (9.4-12.4)
[2016-10-13 05:09] LABS: Hematocrit 27.3 % (37.5-50.1); Hemoglobin 7.7 g/dL (12.9-16.9); Mean Corpuscular HGB Conc 28.2 g/dL (31.6-35.5); Mean Corpuscular Hemoglobin 29.2 pg (28.0-33.3); Mean Corpuscular Volume 103.4 fL (83.0-100.0); Nucleated Red Blood Cells 0.1 /100 WBC (0); Platelet Count 618 K/mcL (140-400); Red Blood Count 2.64 M/mcL (4.19-5.50); Red Cell Distribution Width 19.6 % (11.5-14.5)
[2016-10-13 05:25] LABS: Albumin 3.1 g/dL (3.5-5.0); Bilirubin,Total 0.9 mg/dL (0.2-1.2); Calcium 8.4 mg/dL (8.6-10.8); Potassium 5.1 mEq/L (3.5-4.5); Total Protein 6.1 g/dL (6.0-8.3)
[2016-10-13] MEDS: 0.9 % Sodium Chloride 1,000 ML IVC SCH ×2 (06:48→18:18)
[2016-10-13 07:13] LABS: Anisocytosis 1+ (Not Present); Basophils # 0.4 K/mcL (0.0-0.2); Lymphocytes # 2.2 K/mcL (0.6-4.6); Monocytes # 0.6 K/mcL (0.0-1.3); Platelet Estimate Marked Increase (Normal); Polychromasia 1+ (Not Present)
--- NOTE | 2016-10-13 08:50 | Nephrology Progress Note ---
Date of Encounter: 10/13/16 Time of Encounter: 08:48 - Assessment and Plan (1) Acute on chronic kidney failure Current Visit: No Status: Acute Patient has acute kidney injury superimposed on chronic kidney disease. His renal function continued to improve. I suspect he is having some discomfort from the ureteral stent. He continues to have a leukocytosis. Most recent cultures are negative. He remains on empiric antibiotics. (2) Acute blood loss anemia Current Visit: No Status: Acute (3) Kidney stones Current Visit: No Status: Acute (4) Atrial fibrillation Current Visit: No Status: Chronic Qualifiers: Atrial fibrillation type: chronic Qualified Code(s): I48.2 - Chronic atrial fibrillation Subjective Interval history: The patient reports that he had some right-sided pain last night. Likely this is related to the ureteral stent. [address] Urine output is improved. There continues to be mild improvement in the serum creatinine. He does continue to have gross hematuria. White blood cell count remains elevated with negative cultures. Objective - Vital Signs Vital signs: Vital Signs Temp Pulse Resp BP Pulse Ox 10/13/16 07:20 98.0 F 70 15 138/72 100 10/13/16 03:26 98 F 67 18 142/91 95 10/12/16 22:58 97.5 F L 73 16 131/87 96 10/12/16 19:37 97.8 F 74 16 115/61 95 10/12/16 11:00 63 17 127/88 91 L Intake and Output 10/12/16 10/13/16 10/13/16 23:59 07:59 15:59 Intake Total 1350 / 1350 1000 / 1000 240 / 240 Output Total 800 / 800 Balance 550 / 550 1000 / 1000 240 / 240 Intake: IV Fluids 1000 / 1000 1000 / 1000 0.9 % Sodium Chloride 1, 1000 / 1000 1000 / 1000 000 ML @ 120 mls/hr IVC . [id number] [facility] Rx#:[id number] Oral 350 / 350 240 / 240 Output: Catheter 800 / 800 Other: Meal Breakfast Percent of Meal Consumed 95% Stool Size Large Stool Consistency loose Stool Color Brown # Bowel Movement Diapers 1 - General Appearance Exam: Patient is alert and oriented. He is in no acute distress. Lungs essentially clear to auscultation. Heart regular rhythm. Abdomen is benign. There is some lower extremity swelling. Full catheters in place. Gross hematuria is evident. - Lab 10/13/16 04:54 10/13/16 04:54 Most recent lab results Calcium 8.4 mg/dL (8.6-10.8) L 10/13/16 04:54 Phosphorus 5.4 mg/dL (2.3-4.7) H 10/09/16 04:29 Magnesium 3.0 mg/dL (1.6-2.6) H 10/09/16 04:29 Urine Creatinine 68 mg/dL 10/09/16 22:30 Urine Sodium 32.0 mEq/L 10/09/16 22:30 Urine Total Protein 22 mg/dL (1-14) H 10/09/16 22:30 - VTE Documentation of Mechanical Device: Intermittent pneumatic compression device Consult Discharge Plan - Plan Instructions: Atrial Fibrillation (DC), Kidney Stones (DC), Kidney Stones (GEN) , Urinary Tract Infection in Men (DC), Acute Hematuria (DC), Acute Hematuria ( GEN), Chronic Hypertension (DC), Alzheimer Disease, Certified Meeting Professional (GEN), Kidney Stones, Certified Meeting Professional (GEN) Referrals: NO,PCP [Primary Care Provider] -
[2016-10-13] MEDS: Sennosides/Docusate Sodium TABLET PO SCH ×2 (09:52→21:20)
[2016-10-13] MEDS: Aspirin Enteric Coated 325 MG Tablet PO SCH (09:52)
[2016-10-13] MEDS: Gabapentin 300 MG CAPSULE PO SCH ×4 (09:52→21:18)
--- NOTE | 2016-10-13 09:56 | Internal Med Progress Note ---
<Jt Merino - Last Filed: 10/13/16 09:50> Date of Encounter: 10/13/16 Time of Encounter: 09:50 - Assessment and plan (1) Generalized weakness Current Visit: Yes Status: Acute Assessment and plan: likely secondary to underlying anemia, but possible infection as well. Severe pain in penis and osito hematuria continues. Continue to monitor hemoglobin Pain control with morphine and [place] as needed Obtain urology consult, appreciate recommendations for continuing management/ care Continue ceftriaxone and Levaquin day 5, though urine culture negative for bacteria PT/OT eval as per , patient is requiring more care on daily basis than she is able to provide, f/u social science professor eval for d/c planning (2) Infection Current Visit: Yes Status: Acute Assessment and plan: Unclear of etiology of infection at the moment. Lungs are clear to auscultation , CT examination performed thus far are negative for potential source of infection. Urine cultures negative. Blood cultures are negative so far. Patient continues to have leukocytosis with band cells (7%), though this is down , although patient afebrile this is concerning for possible infection. We will continue to treat with ceftriaxone and Levaquin day 5 We will discontinue antibiotics tomorrow Plan as above We will continue to monitor (3) Anemia Current Visit: No Status: Acute Assessment and plan: Likely due to CKD and iron deficiency. FOBT (-). Patient has low iron. Patient does report some melena, though it is unclear how good the patients memory is. B12 and Folate normal. Patient received 2 units PRBCs yesterday. Hemoglobin has remained stable in recheck. Severe pain patient penis with frankly bloody urine continues. Postop patient heparin Plan as above Will continue to monitor Transfuse as necessary if hemoglobin below 7 Qualifiers: Anemia type: unspecified type Qualified Code(s): D64.9 - Anemia, unspecified (4) Dizziness Current Visit: Yes Status: Resolved Assessment and plan: Plan as above (5) Acute on chronic kidney failure Current Visit: No Status: Acute Assessment and plan: heavenly secondary obstrucive uropathy versus dehydration/poor oral intake recent hx of kidney stones s/p stent placement which has not been removed. Renal function improving with supportive treatment Kidney function slightly improved today will continue IV fluids hold nephrotoxic agents at this time Patient developed hematuria with severe penile pain 1/11/17, no longer has pain in penis for continued hematuria. Hematuria not as bad as yesterday Nephrology following, appreciate recommendations for continued management/care (6) Atrial fibrillation Current Visit: No Status: Chronic Assessment and plan: Rate controlled Currently off anticoagulation as per primary transportation project manager due to recent new onset of diffuse bruising Qualifiers: Atrial fibrillation type: chronic Qualified Code(s): I48.2 - Chronic atrial fibrillation (7) HTN (hypertension) Current Visit: No Status: Chronic Assessment and plan: Noted to be hypotensive Will hold antihypertensive medications at this time continue to closely monitor BP Will bolus normal saline if needed Qualifiers: Hypertension type: essential hypertension Qualified Code(s): I10 - Essential (primary) hypertension (8) Alzheimers disease Current Visit: Yes Status: Chronic Assessment and plan: continue home meds Qualifiers: Alzheimer's disease onset: unspecified onset Dementia behavioral disturbance: without behavioral disturbance Qualified Code(s): G30.9 - Alzheimer's disease, unspecified; F02.80 - Dementia in other diseases classified elsewhere without behavioral disturbance (9) DVT prophylaxis Current Visit: No Status: Acute Assessment and plan: We will stop patient heparin in light of osito bloody urine We will continue EPCDs Right leg appears larger and tighter than left We will order venous Doppler of right leg - Subjective Interval history: Patient reports he is doing well today, no concerns/complaints. He denies subjective fever, denies shortness of breath, denies cough, denies chest pain. He reports no continued pain in his flanks or penis after the episode 2 days ago. He does still have gross hematuria when doing his catheter bag - Constitutional Vitals: Temp Pulse Resp BP Pulse Ox 98.0 F 70 15 138/72 100 10/13/16 07:20 10/13/16 07:20 10/13/16 07:20 10/13/16 07:20 10/13/16 07:20 General appearance: Present: A&O X 3, pleasant, no acute distress, obese, answers questions appropriately Exam: General: Cooperative, pleasant, no acute distress, alert and oriented 3, answers questions appropriately Head: Normocephalic, atraumatic Eye: Conjunctiva pink, sclera anicteric, EOMI, PERRL Neck: Supple, trachea midline Respiratory: No accessory muscle usage, clear to auscultation bilaterally, no wheezes/rhonchi/rales appreciated Cardiovascular: Regular rate and rhythm, S1 and S2 present, no murmurs/rubs/ gallops/clicks appreciated GI/abdominal: Nondistended, nontender, soft, normal bowel sounds, no peritoneal signs Extremities: No calf tenderness, noncyanotic, patient right lower extremity appears slightly larger than the left, increased warmth, and skin appears slightly tight, warm, lower extremity pulses palpable and symmetrical Neurological: Alert and oriented 3, no facial droop, no focal deficits Skin: Dry, intact, normal color Internal Medicine: Result - Labs CBC & Chem 7: 10/13/16 04:54 10/13/16 04:54 Labs: Short CBC 10/13/16 Range/Units 04:54 WBC 20.2 H (4.3-11.1) K/mcL Hgb 7.7 L (12.9-16.9) g/dL Hct 27.3 L (37.5-50.1) % Plt Count 618 H (140-400) K/mcL Neutrophils # 15.0 H (1.6-8.9) K/mcL BMP 10/13/16 04:54 Sodium 144 Potassium 5.1 H Chloride 118 H Carbon Dioxide 19 BUN 52 H Creatinine 1.93 H Glucose 112 H Calcium 8.4 L Liver Function 10/13/16 Range/Units 04:54 Total Bilirubin 0.9 (0.2-1.2) mg/dL AST 18 (5-34) Units/L ALT 14 (0-55) Units/L Alkaline Phosphatase 170 H (38-126) Units/L Albumin 3.1 L (3.5-5.0) g/dL - ABG Interpretation ABG results: PT/INR, D-dimer PT 18.1 Seconds (9.4-12.1) H 10/09/16 09:52 - VTE Documentation of Mechanical Device: Intermittent pneumatic compression device Consult Discharge Plan - Plan Instructions: Atrial Fibrillation (DC), Kidney Stones (DC), Kidney Stones (GEN) , Urinary Tract Infection in Men (DC), Acute Hematuria (DC), Acute Hematuria ( GEN), Chronic Hypertension (DC), Alzheimer Disease, Women'S Basketball Coach (GEN), Kidney Stones, Women'S Basketball Coach (GEN) Referrals: NO,PCP [Primary Care Provider] - <Lg Stapleton P - Last Filed: 10/13/16 18:36> Date of Encounter: 10/13/16 - Constitutional Vitals: Temp Pulse Resp BP Pulse Ox 97.9 F 82 18 135/81 94 L 10/13/16 15:27 10/13/16 15:27 10/13/16 15:27 10/13/16 15:27 10/13/16 15:27 Internal Medicine: Result - Labs CBC & Chem 7: 10/13/16 04:54 10/13/16 04:54 Labs: Short CBC 10/13/16 Range/Units 04:54 WBC 20.2 H (4.3-11.1) K/mcL Hgb 7.7 L (12.9-16.9) g/dL Hct 27.3 L (37.5-50.1) % Plt Count 618 H (140-400) K/mcL Neutrophils # 15.0 H (1.6-8.9) K/mcL BMP 10/13/16 04:54 Sodium 144 Potassium 5.1 H Chloride 118 H Carbon Dioxide 19 BUN 52 H Creatinine 1.93 H Glucose 112 H Calcium 8.4 L Liver Function 10/13/16 Range/Units 04:54 Total Bilirubin 0.9 (0.2-1.2) mg/dL AST 18 (5-34) Units/L ALT 14 (0-55) Units/L Alkaline Phosphatase 170 H (38-126) Units/L Albumin 3.1 L (3.5-5.0) g/dL - ABG Interpretation ABG results: PT/INR, D-dimer PT 18.1 Seconds (9.4-12.1) H 10/09/16 09:52 - Attending Attestation I examined this patient and my medical decision-making was reviewed with the RAILWAYS ASSISTANT/PA/Advanced Practice Nurse/Resident Physician. I agree with the documented findings, disposition and treatment plan as described except to the extent set forth below.
[2016-10-13] MEDS: Furosemide 20 MG/2 ML VIAL IVP SCH (12:30)
--- NOTE | 2016-10-13 13:07 | Urology Progress Note ---
Date of Encounter: 10/13/16 Time of Encounter: 13:05 - Assessment and Plan (1) UTI (urinary tract infection) Current Visit: Yes Status: Acute Assessment and plan: Urine culture was negative. Qualifiers: Urinary tract infection type: acute cystitis Hematuria presence: without hematuria Qualified Code(s): N30.00 - Acute cystitis without hematuria (2) Ureterolithiasis Current Visit: No Status: Acute Assessment and plan: Continue stent for now. (3) Hematuria Current Visit: Yes Status: Acute Assessment and plan: I will hand irrigate the catheter later today. If bleeding doesn't resolve, may need to consider 3 way catheter with irrigation vs OR for clot evacuation, fulguration. Progress Note Narrative: Doing well, but urine is still somewhat bloody. Objective Initial Vital Signs Temp Pulse Resp BP Pulse Ox 97.8 F 63 17 101/49 100 10/08/16 09:52 10/08/16 09:52 10/08/16 09:52 10/08/16 09:52 10/08/16 09:52 - General physical appearance Present: well developed, well nourished, no distress - Respiratory Present: normal respiratory effort - Abdomen Present: soft - Genitourinary Urine Appearance: Present: Hematuria - Labs 10/13/16 04:54 10/13/16 04:54 Diabetes panel 10/13/16 Range/Units 04:54 Sodium 144 (136-145) mEq/L Potassium 5.1 H (3.5-4.5) mEq/L Chloride 118 H (98-109) mEq/L Carbon Dioxide 19 (19-29) mEq/L BUN 52 H (8-26) mg/dL Creatinine 1.93 H (0.72-1.25) mg/dL Glucose 112 H (70-99) mg/dL Calcium 8.4 L (8.6-10.8) mg/dL AST 18 (5-34) Units/L ALT 14 (0-55) Units/L Alkaline Phosphatase 170 H (38-126) Units/L Albumin 3.1 L (3.5-5.0) g/dL Calcium panel 10/13/16 Range/Units 04:54 Calcium 8.4 L (8.6-10.8) mg/dL Albumin 3.1 L (3.5-5.0) g/dL Pituitary panel 10/13/16 Range/Units 04:54 Sodium 144 (136-145) mEq/L Potassium 5.1 H (3.5-4.5) mEq/L Chloride 118 H (98-109) mEq/L Carbon Dioxide 19 (19-29) mEq/L BUN 52 H (8-26) mg/dL Creatinine 1.93 H (0.72-1.25) mg/dL Glucose 112 H (70-99) mg/dL Calcium 8.4 L (8.6-10.8) mg/dL Adrenal panel 10/13/16 Range/Units 04:54 Sodium 144 (136-145) mEq/L Potassium 5.1 H (3.5-4.5) mEq/L Chloride 118 H (98-109) mEq/L Carbon Dioxide 19 (19-29) mEq/L BUN 52 H (8-26) mg/dL Creatinine 1.93 H (0.72-1.25) mg/dL Glucose 112 H (70-99) mg/dL Calcium 8.4 L (8.6-10.8) mg/dL Total Bilirubin 0.9 (0.2-1.2) mg/dL AST 18 (5-34) Units/L ALT 14 (0-55) Units/L Alkaline Phosphatase 170 H (38-126) Units/L Albumin 3.1 L (3.5-5.0) g/dL - VTE Documentation of Mechanical Device: Intermittent pneumatic compression device Consult Discharge Plan - Plan Instructions: Atrial Fibrillation (DC), Kidney Stones (DC), Kidney Stones (GEN) , Urinary Tract Infection in Men (DC), Acute Hematuria (DC), Acute Hematuria ( GEN), Chronic Hypertension (DC), Alzheimer Disease, Combiner (GEN), Kidney Stones, Combiner (GEN) Referrals: NO,PCP [Primary Care Provider] -
--- NOTE | 2016-10-13 17:45 | Event Note ---
Date of Encounter: 10/13/16 Time of Encounter: 17:44 I hand irrigated a large amount of clot from his bladder. He tolerated it well. His urine was pretty clear afterwards.
[2016-10-13] MEDS: traZODone 50 MG TABLET PO SCH (21:18)
[2016-10-14 07:05] LABS: Calcium 8.2 mg/dL (8.6-10.8); Potassium 4.9 mEq/L (3.5-4.5)
[2016-10-14 07:33] LABS: Hemoglobin 7.5 g/dL (12.9-16.9); Nucleated Red Blood Cells 0.1 /100 WBC (0)
[2016-10-14 07:35] LABS: Hematocrit 27.1 % (37.5-50.1); Mean Corpuscular HGB Conc 27.7 g/dL (31.6-35.5); Mean Corpuscular Volume 104.6 fL (83.0-100.0); Mean Platelet Volume 10.3 fL (9.4-12.4); Platelet Count 639 K/mcL (140-400); Red Blood Count 2.59 M/mcL (4.19-5.50); Red Cell Distribution Width 19.6 % (11.5-14.5)
[2016-10-14 08:05] LABS: Lymphocytes # 2.2 K/mcL (0.6-4.6); Monocytes # 1.3 K/mcL (0.0-1.3); Neutrophils # 15.3 K/mcL (1.6-8.9)
[2016-10-14 08:06] LABS: Anisocytosis 2+ (Not Present); Platelet Estimate Increased (Normal)
[2016-10-14 08:07] LABS: Macrocytosis Present (Not Present); Polychromasia 1+ (Not Present)
--- NOTE | 2016-10-14 08:32 | Nephrology Progress Note ---
Date of Encounter: 10/14/16 Time of Encounter: 08:15 - Assessment and Plan (1) Acute on chronic kidney failure Current Visit: No Status: Acute AK superimposed on CKD in setting of nephrolithiasis, s/p right ureteroscopy and stent placement. Renal fct stable, at his baseline (1.3-1.7). Good urine output, hematuric. Leukocytosis continues. Subjective Interval history: Eating breakfast. States feeling good. Huang catheter with with hematuric urine. Nursing staff states going to insert larger catheter and start CBI. Objective - Vital Signs Vital signs: Vital Signs Temp Pulse Resp BP Pulse Ox 10/14/16 08:10 98.2 F 73 12 134/83 100 10/14/16 04:02 98.0 F 78 15 124/60 98 10/13/16 21:15 98 10/13/16 19:49 98.0 F 76 15 139/50 98 10/13/16 15:27 97.9 F 82 18 135/81 94 L 10/13/16 11:26 97.9 F 73 16 131/82 95 10/13/16 09:00 96 Intake and Output 10/13/16 10/14/16 10/14/16 23:59 07:59 15:59 Output Total 800 / 800 Balance -800 / -800 Output: Catheter 800 / 800 - General Appearance General appearance: Present: well-developed, well-nourished, appears started age EENT: Present: mucous membranes moist Neck: Present: no JVD Respiratory: Present: clear Cardiology: Present: regular rate, regular rhythm Additional Comments: Generalized edema, 1+ pitting buttocks down. Gastrointestinal: Present: normoactive bowel sounds, no tenderness Integumentary: Present: warm and dry Psychiatric: Present: mood/affect appropriate, cooperative - Lab 10/14/16 06:12 10/14/16 06:12 Most recent lab results Calcium 8.2 mg/dL (8.6-10.8) L 10/14/16 06:12 Phosphorus 5.4 mg/dL (2.3-4.7) H 10/09/16 04:29 Magnesium 3.0 mg/dL (1.6-2.6) H 10/09/16 04:29 Urine Creatinine 68 mg/dL 10/09/16 22:30 Urine Sodium 32.0 mEq/L 10/09/16 22:30 Urine Total Protein 22 mg/dL (1-14) H 10/09/16 22:30 - VTE Documentation of Mechanical Device: Intermittent pneumatic compression device Consult Discharge Plan - Plan Instructions: Atrial Fibrillation (DC), Kidney Stones (DC), Kidney Stones (GEN) , Urinary Tract Infection in Men (DC), Acute Hematuria (DC), Acute Hematuria ( GEN), Chronic Hypertension (DC), Alzheimer Disease, Professor Of Kinesiology (GEN), Kidney Stones, Professor Of Kinesiology (GEN) Referrals: NO,PCP [Primary Care Provider] -
[2016-10-14] MEDS: Aspirin Enteric Coated 325 MG Tablet PO SCH (08:57)
[2016-10-14] MEDS: Furosemide 20 MG/2 ML VIAL IVP SCH (08:57)
[2016-10-14] MEDS: Sennosides/Docusate Sodium TABLET PO SCH ×2 (08:57→20:09)
[2016-10-14] MEDS: Gabapentin 300 MG CAPSULE PO SCH ×3 (08:59→20:10)
[2016-10-14] MEDS: *HR* Morphine 2 MG/ML SYRINGE IVP PRN (09:11)
[2016-10-14] MEDS ORDERED: *HR* Morphine 2 MG/ML SYRINGE IVP PRN (09:16)
--- NOTE | 2016-10-14 09:34 | Urology Progress Note ---
Date of Encounter: 10/14/16 Time of Encounter: 09:32 - Assessment and Plan (1) UTI (urinary tract infection) Current Visit: Yes Status: Acute Assessment and plan: On ceftriaxone. Qualifiers: Urinary tract infection type: acute cystitis Hematuria presence: without hematuria Qualified Code(s): N30.00 - Acute cystitis without hematuria (2) Ureterolithiasis Current Visit: No Status: Acute Assessment and plan: Right ureteral stent in place. (3) Hematuria Current Visit: Yes Status: Acute Assessment and plan: 3 way catheter placed. CBI started. Will keep in patient for now. Hold any anticoagulants. Progress Note Narrative: 81 year old man with hematuria. I irrigated his catheter to clear last night, but he had bleeding again today. I removed his 18 Romanian catheter and inserted a [address] catheter[address] Some small clots were irrigated out. CBI was started. Objective Initial Vital Signs Temp Pulse Resp BP Pulse Ox 97.8 F 63 17 101/49 100 10/08/16 09:52 10/08/16 09:52 10/08/16 09:52 10/08/16 09:52 10/08/16 09:52 - General physical appearance Present: well developed, well nourished, no distress - Respiratory Present: normal respiratory effort - Abdomen Present: soft - Genitourinary Present: normal penis with no external lesions Urine Appearance: Present: Hematuria - Labs 10/14/16 06:12 10/14/16 06:12 Diabetes panel 10/14/16 Range/Units 06:12 Sodium 143 (136-145) mEq/L Potassium 4.9 H (3.5-4.5) mEq/L Chloride 119 H (98-109) mEq/L Carbon Dioxide 16 L (19-29) mEq/L BUN 44 H (8-26) mg/dL Creatinine 1.68 H (0.72-1.25) mg/dL Glucose 104 H (70-99) mg/dL Calcium 8.2 L (8.6-10.8) mg/dL Calcium panel 10/14/16 Range/Units 06:12 Calcium 8.2 L (8.6-10.8) mg/dL Pituitary panel 10/14/16 Range/Units 06:12 Sodium 143 (136-145) mEq/L Potassium 4.9 H (3.5-4.5) mEq/L Chloride 119 H (98-109) mEq/L Carbon Dioxide 16 L (19-29) mEq/L BUN 44 H (8-26) mg/dL Creatinine 1.68 H (0.72-1.25) mg/dL Glucose 104 H (70-99) mg/dL Calcium 8.2 L (8.6-10.8) mg/dL Adrenal panel 10/14/16 Range/Units 06:12 Sodium 143 (136-145) mEq/L Potassium 4.9 H (3.5-4.5) mEq/L Chloride 119 H (98-109) mEq/L Carbon Dioxide 16 L (19-29) mEq/L BUN 44 H (8-26) mg/dL Creatinine 1.68 H (0.72-1.25) mg/dL Glucose 104 H (70-99) mg/dL Calcium 8.2 L (8.6-10.8) mg/dL - VTE Documentation of Mechanical Device: Intermittent pneumatic compression device Consult Discharge Plan - Plan Instructions: Atrial Fibrillation (DC), Kidney Stones (DC), Kidney Stones (GEN) , Urinary Tract Infection in Men (DC), Acute Hematuria (DC), Acute Hematuria ( GEN), Chronic Hypertension (DC), Alzheimer Disease, Certified Ophthalmic Medical Technician (GEN), Kidney Stones, Certified Ophthalmic Medical Technician (GEN) Referrals: NO,PCP [Primary Care Provider] -
--- NOTE | 2016-10-14 16:02 | Venous Imaging Report ---
LE Venous Duplex Patient Name:Osmany Rodríguez Order Number:[id number] Procedure Date:10/13/2016 Date:1935ge:81 yrs Gender:Male Location:[facility] Room #: 2NE35 Loss Prevention Guard:Tameka Sorto Referring MD:Jt Merino DO senior science consultant:None Reading MD:Christiano Minaya MD Primary Indications:Concern for right leg swelling Secondary Indications: Impressions: Normal bilateral lower extremity deep and superficial venous exam. Recommendations: After imaging the patient returned to their room. Findings Venous Duplex Results: Right: Venous imaging of the lower extremity reveals full patency and normal vessel compressibility of the right distal iliac, right common femoral, right superficial femoral, right popliteal, right posterior tibial, right peroneal, right great saphenous and right lesser saphenous. Doppler signals in the evaluated veins were normal. Left: Venous imaging of the lower extremity reveals full patency and normal vessel compressibility of the left distal iliac, left common femoral, left superficial femoral, left popliteal, left posterior tibial, left peroneal, left great saphenous and left lesser saphenous. Doppler signals in the evaluated veins were normal. Prior Study: No prior study available for comparison. Lower Extremity Venous Duplex Side Vein Compress Spontaneous Flow Augment Diameter (cm) Depth (cm) Right Distal Iliac Normal Yes Phasic Yes Right Common Femoral Normal Yes Phasic Yes Right Superficial Femoral Normal Yes Phasic Yes Right Popliteal Normal Yes Phasic Yes Right Posterior Tibial Normal Yes Phasic Yes Right Peroneal Normal Yes Phasic Yes Right Great Saphenous Normal Yes Phasic Yes Right Lesser Saphenous Normal Yes Phasic Yes Left Distal Iliac Normal Yes Phasic Yes Left Common Femoral Normal Yes Phasic Yes Left Superficial Femoral Normal Yes Phasic Yes Left Popliteal Normal Yes Phasic Yes Left Posterior Tibial Normal Yes Phasic Yes Left Peroneal Normal Yes Phasic Yes Left Great Saphenous Normal Yes Phasic Yes Left Lesser Saphenous Normal Yes Phasic Yes Updated by Christiano Minaya MD on 10/14/2016 3:58:34 PM electronically signed on 10/14/2016 3:58:54 PM with status of Final
--- NOTE | 2016-10-14 18:20 | Internal Med Progress Note ---
Date of Encounter: 10/14/16 Time of Encounter: 18:18 - Assessment and plan (1) Hematuria Current Visit: Yes Status: Acute Assessment and plan: management as per urology (2) Generalized weakness Current Visit: Yes Status: Acute Assessment and plan: likely secondary to underlying anemia, but possible infection as well. Severe pain in penis and osito hematuria continues. Continue to monitor hemoglobin Pain control with morphine and [place] as needed Obtain urology consult, appreciate recommendations for continuing management/ care Continue ceftriaxone and Levaquin day 5, though urine culture negative for bacteria PT/OT eval as per , patient is requiring more care on daily basis than she is able to provide, f/u health social work professor eval for d/c planning (3) Infection Current Visit: Yes Status: Acute Assessment and plan: Unclear of etiology of infection at the moment. Lungs are clear to auscultation , CT examination performed thus far are negative for potential source of infection. Urine cultures negative. Blood cultures are negative so far. Patient continues to have leukocytosis with band cells (7%), though this is down , although patient afebrile this is concerning for possible infection. We will continue to treat with ceftriaxone and Levaquin day 5 We will discontinue antibiotics tomorrow Plan as above We will continue to monitor (4) Anemia Current Visit: No Status: Acute Assessment and plan: Likely due to CKD and iron deficiency. FOBT (-). Patient has low iron. Patient does report some melena, though it is unclear how good the patients memory is. B12 and Folate normal. Patient received 2 units PRBCs yesterday. Hemoglobin has remained stable in recheck. Severe pain patient penis with frankly bloody urine continues. Postop patient heparin Plan as above Will continue to monitor Transfuse as necessary if hemoglobin below 7 Qualifiers: Anemia type: unspecified type Qualified Code(s): D64.9 - Anemia, unspecified - Subjective Interval history: seen and examined no new complaints eating well stil has hematuria. - Constitutional Vitals: Temp Pulse Resp BP Pulse Ox 97.4 F L 66 12 108/72 86 L 10/14/16 16:04 10/14/16 16:04 10/14/16 16:04 10/14/16 16:04 10/14/16 16:04 General appearance: Present: A&O X 3, pleasant, no acute distress, obese, answers questions appropriately - Head Head exam: Present: atraumatic, normocephalic - Eye Eye exam: Present: PERRL, conjuntiva pink, sclera anicteric Pupils: Present: PERRL - Neck Neck exam general surgery: Present: supple, trachea midline. Absent: lymphadenopathy - Respiratory Respiratory exam: Present: CTAB. Absent: accessory muscle use, rales, rhonchi, wheezes - Cardiovascular Cardiovascular exam: Present: RRR, +S1, +S2. Absent: diastolic murmur, gallop, rubs, systolic murmur - GI/Abdominal GI/Abdominal exam: Present: normal bowel sounds, soft, no peritoneal signs. Absent: distended, tenderness - Extremities Exam Extremities exam: Present: warm, radial pulses palpable and symetrical. Absent : calf tenderness, cyanotic, pedal edema - Neurological Exam Neurological exam: Present: CN II-XII intact, oriented X3, no focal deficits. Absent: pronater drift, facial droop, speech deficit - Skin Skin exam: Present: dry, intact Internal Medicine: Result - Labs CBC & Chem 7: 10/14/16 06:12 10/14/16 06:12 Labs: Short CBC 10/14/16 Range/Units 06:12 WBC 21.9 H (4.3-11.1) K/mcL Hgb 7.5 L (12.9-16.9) g/dL Hct 27.1 L (37.5-50.1) % Plt Count 639 H (140-400) K/mcL Neutrophils # 15.3 H (1.6-8.9) K/mcL BMP 10/14/16 06:12 Sodium 143 Potassium 4.9 H Chloride 119 H Carbon Dioxide 16 L BUN 44 H Creatinine 1.68 H Glucose 104 H Calcium 8.2 L - ABG Interpretation ABG results: PT/INR, D-dimer PT 18.1 Seconds (9.4-12.1) H 10/09/16 09:52 - VTE Documentation of Mechanical Device: Intermittent pneumatic compression device Consult Discharge Plan - Plan Instructions: Atrial Fibrillation (DC), Kidney Stones (DC), Kidney Stones (GEN) , Urinary Tract Infection in Men (DC), Acute Hematuria (DC), Acute Hematuria ( GEN), Chronic Hypertension (DC), Alzheimer Disease, Illusionist (GEN), Kidney Stones, Illusionist (GEN) Referrals: NO,PCP [Primary Care Provider] -
[2016-10-14] MEDS: traZODone 50 MG TABLET PO SCH (20:09)
[2016-10-15] MEDS ORDERED: 0.9 % Sodium Chloride 1,000 ML IVC SCH (00:54)
--- NOTE | 2016-10-15 07:31 | Urology Progress Note ---
Date of Encounter: 10/15/16 Time of Encounter: 07:29 - Assessment and Plan (1) UTI (urinary tract infection) Current Visit: Yes Status: Acute Assessment and plan: Continue ceftriaxone. Qualifiers: Urinary tract infection type: acute cystitis Hematuria presence: without hematuria Qualified Code(s): N30.00 - Acute cystitis without hematuria (2) Ureterolithiasis Current Visit: No Status: Acute Assessment and plan: Stent in position. (3) Hematuria Current Visit: Yes Status: Acute Assessment and plan: 81-year-old man with a history of hematuria. He has an indwelling 22 [place] three-way catheter and is on CBI. His urine is still fairly bloody today. Recommend proceeding to the OR tomorrow if his urine does not clear today. We will proceed with a cystoscopy, clot evacuation, fulguration, right ureteral stent removal, and possible TURBT. He was informed of the risks of the surgery which include but are not limited to bleeding, infection, injury to other structures, need for further procedures, bladder perforation, need for open repair, and the risk of anesthesia. He is willing to proceed. Progress Note Narrative: [address] catheter placed. He is on CBI, but the urine is still fairly bloody. Objective Initial Vital Signs Temp Pulse Resp BP Pulse Ox 97.8 F 63 17 101/49 100 10/08/16 09:52 10/08/16 09:52 10/08/16 09:52 10/08/16 09:52 10/08/16 09:52 - General physical appearance Present: well developed, well nourished, no distress - Respiratory Present: normal respiratory effort - Abdomen Present: soft - Genitourinary Urine Appearance: Present: Hematuria - Labs 10/14/16 06:12 10/14/16 06:12 - VTE Documentation of Mechanical Device: Intermittent pneumatic compression device Consult Discharge Plan - Plan Instructions: Atrial Fibrillation (DC), Kidney Stones (DC), Kidney Stones (GEN) , Urinary Tract Infection in Men (DC), Acute Hematuria (DC), Acute Hematuria ( GEN), Chronic Hypertension (DC), Alzheimer Disease, Stock Crane Operator (GEN), Kidney Stones, Stock Crane Operator (GEN) Referrals: NO,PCP [Primary Care Provider] -
[2016-10-15] MEDS ORDERED: Furosemide 40 MG/4 ML VIAL IVP ONE (09:19)
[2016-10-15] MEDS: Aspirin Enteric Coated 325 MG Tablet PO SCH (09:24)
[2016-10-15] MEDS: Gabapentin 300 MG CAPSULE PO SCH ×3 (09:24→20:28)
[2016-10-15] MEDS: Furosemide 20 MG/2 ML VIAL IVP SCH (09:24)
[2016-10-15] MEDS: Sennosides/Docusate Sodium TABLET PO SCH ×2 (09:24→20:24)
--- NOTE | 2016-10-15 09:31 | Nephrology Progress Note ---
Date of Encounter: 10/15/16 Time of Encounter: 09:25 - Assessment and Plan (1) Acute on chronic kidney failure Current Visit: No Status: Acute AK superimposed on CKD in setting of nephrolithiasis, s/p right ureteroscopy and stent placement. No current labs. Good urine output, hematuric.Agree with stopping IV fluids and resumption of Lasix. Subjective Interval history: States feeling good. Huang catheter/CBI with with hematuric urine. Nursing staff states order to stop IV fluids and resuming Lasix. Objective - Vital Signs Vital signs: Vital Signs Temp Pulse Resp BP Pulse Ox 10/15/16 07:36 97.9 F 66 16 120/91 94 L 10/14/16 19:16 97.8 F 78 18 126/77 92 L 10/14/16 16:04 97.4 F L 66 12 108/72 86 L 10/14/16 12:19 97.4 F L 70 12 129/89 100 Intake and Output 10/14/16 10/15/16 10/15/16 23:59 07:59 15:59 Intake Total 250 / 250 240 / 240 Output Total 1225 / 1225 1300 / 1300 Balance -975 / -975 -1060 / -1060 Intake: Oral 250 / 250 240 / 240 Output: Urine 650 / 650 Catheter 1225 / 1225 650 / 650 Other: Meal Breakfast Percent of Meal Consumed 100% - General Appearance General appearance: Present: well-developed, well-nourished, appears started age EENT: Present: mucous membranes moist Neck: Present: no JVD Respiratory: Present: clear Cardiology: Present: irregular rhythm Additional Comments: generalized pitting edema. Gastrointestinal: Present: normoactive bowel sounds, no tenderness Psychiatric: Present: mood/affect appropriate, cooperative - Lab 10/14/16 06:12 10/14/16 06:12 Most recent lab results Calcium 8.2 mg/dL (8.6-10.8) L 10/14/16 06:12 Phosphorus 5.4 mg/dL (2.3-4.7) H 10/09/16 04:29 Magnesium 3.0 mg/dL (1.6-2.6) H 10/09/16 04:29 Urine Creatinine 68 mg/dL 10/09/16 22:30 Urine Sodium 32.0 mEq/L 10/09/16 22:30 Urine Total Protein 22 mg/dL (1-14) H 10/09/16 22:30 - VTE Documentation of Mechanical Device: Intermittent pneumatic compression device Consult Discharge Plan - Plan Instructions: Atrial Fibrillation (DC), Kidney Stones (DC), Kidney Stones (GEN) , Urinary Tract Infection in Men (DC), Acute Hematuria (DC), Acute Hematuria ( GEN), Chronic Hypertension (DC), Alzheimer Disease, Armhole Baster Jumpbasting (GEN), Kidney Stones, Armhole Baster Jumpbasting (GEN) Referrals: NO,PCP [Primary Care Provider] -
[2016-10-15 09:56] LABS: Albumin 2.9 g/dL (3.5-5.0); Albumin/Globulin Ratio 0.9 (1.1-2.2); Bilirubin,Total 0.8 mg/dL (0.2-1.2); Calcium 8.1 mg/dL (8.6-10.8); Globulin 3.1 g/dL (2.4-3.5); Potassium 5.1 mEq/L (3.5-4.5)
--- NOTE | 2016-10-15 18:08 | Internal Med Progress Note ---
Date of Encounter: 10/15/16 Time of Encounter: 18:07 - Assessment and plan (1) Hematuria Current Visit: Yes Status: Acute Assessment and plan: management as per urology 10/15/2016 plan to get him to OR tomorrow will follow urology recommendations (2) Generalized weakness Current Visit: Yes Status: Acute Assessment and plan: likely secondary to underlying anemia, but possible infection as well. Severe pain in penis and osito hematuria continues. Continue to monitor hemoglobin Pain control with morphine and [place] as needed Obtain urology consult, appreciate recommendations for continuing management/ care Continue ceftriaxone and Levaquin day 5, though urine culture negative for bacteria PT/OT eval as per , patient is requiring more care on daily basis than she is able to provide, f/u geriatric social work professor eval for d/c planning (3) Infection Current Visit: Yes Status: Acute Assessment and plan: Unclear of etiology of infection at the moment. Lungs are clear to auscultation , CT examination performed thus far are negative for potential source of infection. Urine cultures negative. Blood cultures are negative so far. Patient continues to have leukocytosis with band cells (7%), though this is down , although patient afebrile this is concerning for possible infection. We will continue to treat with ceftriaxone and Levaquin day 5 We will discontinue antibiotics tomorrow Plan as above We will continue to monitor (4) Anemia Current Visit: No Status: Acute Assessment and plan: Likely due to CKD and iron deficiency. FOBT (-). Patient has low iron. Patient does report some melena, though it is unclear how good the patients memory is. B12 and Folate normal. Patient received 2 units PRBCs yesterday. Hemoglobin has remained stable in recheck. Severe pain patient penis with frankly bloody urine continues. Postop patient heparin Plan as above Will continue to monitor Transfuse as necessary if hemoglobin below 7 Qualifiers: Anemia type: unspecified type Qualified Code(s): D64.9 - Anemia, unspecified - Subjective Interval history: seen and examined no new complaints eating well stil has hematuria. - Constitutional Vitals: Temp Pulse Resp BP Pulse Ox 98.1 F 70 16 111/60 97 10/15/16 16:06 10/15/16 16:06 10/15/16 16:06 10/15/16 16:06 10/15/16 16:06 General appearance: Present: A&O X 3, pleasant, no acute distress, obese, answers questions appropriately - Head Head exam: Present: atraumatic, normocephalic - Eye Eye exam: Present: PERRL, conjuntiva pink, sclera anicteric Pupils: Present: PERRL - Neck Neck exam general surgery: Present: supple, trachea midline. Absent: lymphadenopathy - Respiratory Respiratory exam: Present: CTAB. Absent: accessory muscle use, rales, rhonchi, wheezes - Cardiovascular Cardiovascular exam: Present: RRR, +S1, +S2. Absent: diastolic murmur, gallop, rubs, systolic murmur - GI/Abdominal GI/Abdominal exam: Present: normal bowel sounds, soft, no peritoneal signs. Absent: distended, tenderness - Extremities Exam Extremities exam: Present: warm, radial pulses palpable and symetrical. Absent : calf tenderness, cyanotic, pedal edema - Neurological Exam Neurological exam: Present: CN II-XII intact, oriented X3, no focal deficits. Absent: pronater drift, facial droop, speech deficit - Skin Skin exam: Present: dry, intact Internal Medicine: Result - Labs CBC & Chem 7: 10/14/16 06:12 10/15/16 09:28 Labs: BMP 10/15/16 09:28 Sodium 142 Potassium 5.1 H Chloride 119 H Carbon Dioxide 14 L BUN 42 H Creatinine 1.91 H Glucose 143 H Calcium 8.1 L Liver Function 10/15/16 Range/Units 09:28 Total Bilirubin 0.8 (0.2-1.2) mg/dL AST 17 (5-34) Units/L ALT 17 (0-55) Units/L Alkaline Phosphatase 165 H (38-126) Units/L Albumin 2.9 L (3.5-5.0) g/dL - ABG Interpretation ABG results: PT/INR, D-dimer PT 18.1 Seconds (9.4-12.1) H 10/09/16 09:52 - VTE Documentation of Mechanical Device: Intermittent pneumatic compression device Consult Discharge Plan - Plan Instructions: Atrial Fibrillation (DC), Kidney Stones (DC), Kidney Stones (GEN) , Urinary Tract Infection in Men (DC), Acute Hematuria (DC), Acute Hematuria ( GEN), Chronic Hypertension (DC), Alzheimer Disease, Commodity Industry Analyst (GEN), Kidney Stones, Commodity Industry Analyst (GEN) Referrals: NO,PCP [Primary Care Provider] -
[2016-10-15] MEDS: traZODone 50 MG TABLET PO SCH (20:23)
[2016-10-16] MEDS: *HR* Morphine 2 MG/ML SYRINGE IVP PRN ×3 (03:47→18:48)
[2016-10-16 06:26] LABS: Hematocrit 25.6 % (37.5-50.1); Hemoglobin 7.3 g/dL (12.9-16.9); Mean Corpuscular HGB Conc 28.5 g/dL (31.6-35.5); Mean Corpuscular Hemoglobin 29.9 pg (28.0-33.3); Mean Corpuscular Volume 104.9 fL (83.0-100.0); Mean Platelet Volume 10.3 fL (9.4-12.4); Nucleated Red Blood Cells 0.1 /100 WBC (0); Platelet Count 660 K/mcL (140-400); Red Blood Count 2.44 M/mcL (4.19-5.50); Red Cell Distribution Width 19.9 % (11.5-14.5)
[2016-10-16 06:39] LABS: Albumin 2.8 g/dL (3.5-5.0); Albumin/Globulin Ratio 0.9 (1.1-2.2); Bilirubin,Total 0.9 mg/dL (0.2-1.2); Calcium 8.3 mg/dL (8.6-10.8); Globulin 3.1 g/dL (2.4-3.5); Total Protein 5.9 g/dL (6.0-8.3)
--- NOTE | 2016-10-16 06:40 | Urology Progress Note ---
Date of Encounter: 10/16/16 Time of Encounter: 06:38 - Assessment and Plan (1) UTI (urinary tract infection) Current Visit: Yes Status: Acute Qualifiers: Urinary tract infection type: acute cystitis Hematuria presence: without hematuria Qualified Code(s): N30.00 - Acute cystitis without hematuria (2) Ureterolithiasis Current Visit: No Status: Acute (3) Hematuria Current Visit: Yes Status: Acute Assessment and plan: Will remove catheter now for his comfort. PLan on proceeding to the OR today for a cystoscopy, clot evacuation, fulguration, possible TURBT. All risks informed to him and his . All questions answered. Progress Note Narrative: He is having discomfort with the catheter. He reports burning pain. Evening was difficult. Urine is still bloody. Objective Initial Vital Signs Temp Pulse Resp BP Pulse Ox 97.8 F 63 17 101/49 100 10/08/16 09:52 10/08/16 09:52 10/08/16 09:52 10/08/16 09:52 10/08/16 09:52 - General physical appearance Present: moderate distress - Respiratory Present: normal expansion - Abdomen Present: soft - Genitourinary Present: normal penis with no external lesions Urine Appearance: Present: Hematuria (Urine will blood and some clots on slow CBI.) - Labs 10/14/16 06:12 10/15/16 09:28 Diabetes panel 10/15/16 Range/Units 09:28 Sodium 142 (136-145) mEq/L Potassium 5.1 H (3.5-4.5) mEq/L Chloride 119 H (98-109) mEq/L Carbon Dioxide 14 L (19-29) mEq/L BUN 42 H (8-26) mg/dL Creatinine 1.91 H (0.72-1.25) mg/dL Glucose 143 H (70-99) mg/dL Calcium 8.1 L (8.6-10.8) mg/dL AST 17 (5-34) Units/L ALT 17 (0-55) Units/L Alkaline Phosphatase 165 H (38-126) Units/L Albumin 2.9 L (3.5-5.0) g/dL Calcium panel 10/15/16 Range/Units 09:28 Calcium 8.1 L (8.6-10.8) mg/dL Albumin 2.9 L (3.5-5.0) g/dL Pituitary panel 10/15/16 Range/Units 09:28 Sodium 142 (136-145) mEq/L Potassium 5.1 H (3.5-4.5) mEq/L Chloride 119 H (98-109) mEq/L Carbon Dioxide 14 L (19-29) mEq/L BUN 42 H (8-26) mg/dL Creatinine 1.91 H (0.72-1.25) mg/dL Glucose 143 H (70-99) mg/dL Calcium 8.1 L (8.6-10.8) mg/dL Adrenal panel 10/15/16 Range/Units 09:28 Sodium 142 (136-145) mEq/L Potassium 5.1 H (3.5-4.5) mEq/L Chloride 119 H (98-109) mEq/L Carbon Dioxide 14 L (19-29) mEq/L BUN 42 H (8-26) mg/dL Creatinine 1.91 H (0.72-1.25) mg/dL Glucose 143 H (70-99) mg/dL Calcium 8.1 L (8.6-10.8) mg/dL Total Bilirubin 0.8 (0.2-1.2) mg/dL AST 17 (5-34) Units/L ALT 17 (0-55) Units/L Alkaline Phosphatase 165 H (38-126) Units/L Albumin 2.9 L (3.5-5.0) g/dL - VTE Documentation of Mechanical Device: Intermittent pneumatic compression device Consult Discharge Plan - Plan Instructions: Atrial Fibrillation (DC), Kidney Stones (DC), Kidney Stones (GEN) , Urinary Tract Infection in Men (DC), Acute Hematuria (DC), Acute Hematuria ( GEN), Chronic Hypertension (DC), Alzheimer Disease, Military Cook (GEN), Kidney Stones, Military Cook (GEN) Referrals: NO,PCP [Primary Care Provider] -
[2016-10-16 07:03] LABS: Large Platelets Present (Not Present); Lymphocytes # 2.3 K/mcL (0.6-4.6); Neutrophils # 19.1 K/mcL (1.6-8.9); Platelet Estimate Increased (Normal); Polychromasia 2+ (Not Present)
--- NOTE | 2016-10-16 08:20 | Nephrology Progress Note ---
Date of Encounter: 10/16/16 Time of Encounter: 08:05 - Assessment and Plan (1) Acute on chronic kidney failure Current Visit: No Status: Acute AK superimposed on CKD in setting of nephrolithiasis, s/p right ureteroscopy and stent placement. Creat somewhat worse from previous days. Good urine output. Cystoscopy later today, will continue to monitor. Subjective Interval history: States feeling good, catheter out at present. Scheduled for cysoscopy later today. atbedside. Objective - Vital Signs Vital signs: Vital Signs Temp Pulse Resp BP Pulse Ox 10/16/16 07:55 100.7 F H 72 16 121/75 94 L 10/15/16 20:00 98.4 F 66 20 110/62 98 10/15/16 16:06 98.1 F 70 16 111/60 97 10/15/16 11:45 97.4 F L 71 16 86/51 99 Intake and Output 10/15/16 10/16/16 10/16/16 23:59 07:59 15:59 Intake Total 240 / 240 Output Total 1900 / 1900 1999 Balance -1660 / -1660 -1999 Intake: Oral 240 / 240 Output: Urine 950 / 950 1400 / 1400 Catheter 950 / 950 600 / 600 Other: Meal Dinner Percent of Meal Consumed 100% Stool Size Smear Large Stool Consistency soft soft formed Stool Color Brown # Voids 0 - General Appearance General appearance: Present: well-developed, well-nourished, appears started age EENT: Present: mucous membranes moist Neck: Present: no JVD Respiratory: Present: clear Cardiology: Present: irregular rhythm Additional Comments: dependent 1+ pitting-generalized Gastrointestinal: Present: normoactive bowel sounds, no tenderness Integumentary: Present: warm and dry Psychiatric: Present: mood/affect appropriate, cooperative - Lab 10/16/16 05:41 10/16/16 05:41 Most recent lab results Calcium 8.3 mg/dL (8.6-10.8) L 10/16/16 05:41 Phosphorus 5.4 mg/dL (2.3-4.7) H 10/09/16 04:29 Magnesium 3.0 mg/dL (1.6-2.6) H 10/09/16 04:29 Urine Creatinine 68 mg/dL 10/09/16 22:30 Urine Sodium 32.0 mEq/L 10/09/16 22:30 Urine Total Protein 22 mg/dL (1-14) H 10/09/16 22:30 - VTE Documentation of Mechanical Device: Intermittent pneumatic compression device Consult Discharge Plan - Plan Instructions: Atrial Fibrillation (DC), Kidney Stones (DC), Kidney Stones (GEN) , Urinary Tract Infection in Men (DC), Acute Hematuria (DC), Acute Hematuria ( GEN), Chronic Hypertension (DC), Alzheimer Disease, Paper Cleaner (GEN), Kidney Stones, Paper Cleaner (GEN) Referrals: NO,PCP [Primary Care Provider] -
--- NOTE | 2016-10-16 09:59 | Internal Med Progress Note ---
<Rambo Florian - Last Filed: 10/16/16 16:53> Date of Encounter: 10/16/16 Time of Encounter: 09:56 - Assessment and plan (1) Hematuria Current Visit: Yes Status: Acute Assessment and plan: -management as per urology -plan to get him to OR today -will follow urology recommendations (2) Hyperkalemia Current Visit: Yes Status: Acute Assessment and plan: Pt was reported of taking K supplements at home, will hold at this time No EKG changes noted continue to closely monitor K+ 5.1 on admission. 5.0 10/16/15 -consider adding duoneb treatment to help with breathing and decrease K (3) Leukocytosis Current Visit: Yes Status: Acute Assessment and plan: -wbc increased to 22.7. Urine and BC negative. 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 Patient has chronic WBC elevation. -Urology consulted. Cystoscopy today. -Continue abx. Qualifiers: Leukocytosis type: unspecified Qualified Code(s): D72.829 - Elevated white blood cell count, unspecified (4) MAGGIE (acute kidney injury) Current Visit: No Status: Acute Assessment and plan: - >3.0 and today 2.23. Good urine output. -Urology and nephrology on board. Will follow their consults. (5) Generalized weakness Current Visit: Yes Status: Acute Assessment and plan: likely secondary to underlying anemia, but possible infection as well. Continue to monitor hemoglobin Pain control with morphine and [place] as needed Obtain urology consult, appreciate recommendations for continuing management/ care Continue abx PT/OT eval as per , patient is requiring more care on daily basis than she is able to provide, f/u social work supervisor eval for d/c planning (6) Anemia Current Visit: No Status: Acute Assessment and plan: Likely due to CKD and iron deficiency. FOBT (-). Patient has low iron. Patient does report some melena, though it is unclear how good the patients memory is. B12 and Folate normal. Patient received 2 units PRBCs 2 days ago. Hemoglobin has remained stable in recheck. Mild pain patient penis with dark urine continues. Postop patient heparin Plan as above Will continue to monitor Transfuse as necessary if hemoglobin below 7 Qualifiers: Anemia type: unspecified type Qualified Code(s): D64.9 - Anemia, unspecified - Time Spent With Patient Greater than 35 minutes - Subjective Interval history: Patient states that he feels the same as yesterday. Is having a mild amount of blood out of his penis. Denies any body pain, SOB, CP. He is urinating dark brown. He has no questions or concerns at this time. Later in the day, patient started having SOB-ABG, EKG, CXR ordered. - Constitutional Vitals: Temp Pulse Resp BP Pulse Ox 100.7 F H 72 16 121/75 94 L 10/16/16 07:55 10/16/16 07:55 10/16/16 07:55 10/16/16 07:55 10/16/16 07:55 General appearance: Present: A&O X 3, pleasant, no acute distress, obese, answers questions appropriately - Respiratory Respiratory exam: Present: wheezes - Cardiovascular Cardiovascular exam: Present: RRR - GI/Abdominal GI/Abdominal exam: Present: normal bowel sounds, soft. Absent: no peritoneal signs - Neurological Exam Neurological exam: Present: oriented X3 - Psychiatric Psychiatric exam: Present: normal affect, normal mood - Other Additional findings: Huang in place. Small amount of tried blood on inner thigh and tip of penis. No swelling or erythema of the penis. Internal Medicine: Result - Labs CBC & Chem 7: 10/16/16 05:41 10/16/16 05:41 Labs: Short CBC 10/16/16 Range/Units 05:41 WBC 22.7 H (4.3-11.1) K/mcL Hgb 7.3 L (12.9-16.9) g/dL Hct 25.6 L (37.5-50.1) % Plt Count 660 H (140-400) K/mcL Neutrophils # 19.1 H (1.6-8.9) K/mcL BMP 10/15/16 10/16/16 09:28 05:41 Sodium 142 142 Potassium 5.1 H 5.0 H Chloride 119 H 115 H Carbon Dioxide 14 L 16 L BUN 42 H 50 H Creatinine 1.91 H 2.23 H Glucose 143 H 99 Calcium 8.1 L 8.3 L Liver Function 10/15/16 10/16/16 Range/Units 09:28 05:41 Total Bilirubin 0.8 0.9 (0.2-1.2) mg/dL AST 17 17 (5-34) Units/L ALT 17 16 (0-55) Units/L Alkaline Phosphatase 165 H 158 H (38-126) Units/L Albumin 2.9 L 2.8 L (3.5-5.0) g/dL - ABG Interpretation ABG results: PT/INR, D-dimer PT 18.1 Seconds (9.4-12.1) H 10/09/16 09:52 - VTE Documentation of Mechanical Device: Intermittent pneumatic compression device Consult Discharge Plan - Plan Instructions: Atrial Fibrillation (DC), Kidney Stones (DC), Kidney Stones (GEN) , Urinary Tract Infection in Men (DC), Acute Hematuria (DC), Acute Hematuria ( GEN), Chronic Hypertension (DC), Alzheimer Disease, Md Pediatric Allergist (GEN), Kidney Stones, Md Pediatric Allergist (GEN) Referrals: NO,PCP [Primary Care Provider] - <Lg Stapleton P - Last Filed: 10/16/16 17:36> Date of Encounter: 10/16/16 - Assessment and plan (1) Hematuria Current Visit: Yes Status: Acute (2) Generalized weakness Current Visit: Yes Status: Acute (3) Infection Current Visit: Yes Status: Acute (4) Anemia Current Visit: No Status: Acute Qualifiers: Anemia type: unspecified type Qualified Code(s): D64.9 - Anemia, unspecified - Constitutional Vitals: Temp Pulse Resp BP Pulse Ox 98.7 F 76 16 119/75 96 10/16/16 16:17 10/16/16 16:17 10/16/16 16:17 10/16/16 16:17 10/16/16 16:17 Internal Medicine: Result - Labs CBC & Chem 7: 10/16/16 05:41 10/16/16 05:41 Labs: Short CBC 10/16/16 Range/Units 05:41 WBC 22.7 H (4.3-11.1) K/mcL Hgb 7.3 L (12.9-16.9) g/dL Hct 25.6 L (37.5-50.1) % Plt Count 660 H (140-400) K/mcL Neutrophils # 19.1 H (1.6-8.9) K/mcL BMP 10/16/16 05:41 Sodium 142 Potassium 5.0 H Chloride 115 H Carbon Dioxide 16 L BUN 50 H Creatinine 2.23 H Glucose 99 Calcium 8.3 L Liver Function 10/16/16 Range/Units 05:41 Total Bilirubin 0.9 (0.2-1.2) mg/dL AST 17 (5-34) Units/L ALT 16 (0-55) Units/L Alkaline Phosphatase 158 H (38-126) Units/L Albumin 2.8 L (3.5-5.0) g/dL - ABG Interpretation ABG results: ABG ABG pH 7.41 pH Units (7.32-7.45) 10/16/16 12:53 ABG pCO2 30 mmHg (35-45) L 10/16/16 12:53 ABG pO2 79 mmHg (85-104) L 10/16/16 12:53 ABG O2 Saturation 96 % (95-98) 10/16/16 12:53 PT/INR, D-dimer PT 18.1 Seconds (9.4-12.1) H 10/09/16 09:52 - Impressions Impressions Chest X-Ray 10/16/16 10:51 IMPRESSION: Cardiomegaly with right basilar atelectasis. Otherwise no acute process. D/ / Emir Nina MD / Emir Nina MD Interpreting Provider: Emir Nina MD - Attending Attestation I examined this patient and my medical decision-making was reviewed with the RADIO ARTIST/PA/Advanced Practice Nurse/Resident Physician. I agree with the documented findings, disposition and treatment plan as described except to the extent set forth below.
[2016-10-16] MEDS: Gabapentin 300 MG CAPSULE PO SCH ×3 (10:12→22:23)
[2016-10-16] MEDS: Aspirin Enteric Coated 325 MG Tablet PO SCH (10:12)
[2016-10-16] MEDS: Furosemide 20 MG/2 ML VIAL IVP SCH (10:13)
[2016-10-16] MEDS: Sennosides/Docusate Sodium TABLET PO SCH ×2 (10:13→20:04)
[2016-10-16] MEDS ORDERED: Furosemide 40 MG/4 ML VIAL IVP ONE (10:48)
[2016-10-16] MEDS ORDERED: Furosemide 100 MG/10 ML VIAL ONE (10:50)
[2016-10-16 13:01] LABS: ABG Oxygen Saturation 96 % (95-98); ABG PCO2 30 mmHg (35-45); ABG PH 7.41 pH Units (7.32-7.45); ABG PO2 79 mmHg (85-104); ABG TCO2 19.9 mEq/L (20-26); Blood Gas FiO2 32 %
--- NOTE | 2016-10-16 13:37 | Anesthesia Evaluation PreOp ---
<Susan Mckeon Svitlana - Last Filed: 10/16/16 13:35> Date of Encounter: 10/16/16 Time of Encounter: 13:35 - Past History Planned Operation: Cystoscopy w/ clot evacuation Cardiac History: ID, HTN (maintained on Carvedilol, NOrvasc, Lasix), Hyperlipidemia (maintained on Atorvastatin), Arrhythmia (Afib maintained on Amiodarone, Eliquis for anti-coagulation), Pacemaker/ICD (Pacer), Other (PVDz. ECHO 10/09/2016 - LVEF 50%. Indeterminated diastolic function, Atypical septal motion SEVERE pulmonary HTN. 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 Hx of kidney stones s/p stent placement. Hematuria not responding to CBI and other measures.), Other (Anemia - presumably blood loss anemia/hematuria) Anesthesia History: No Prior Anesthetic Complications, Past Anesthesia (C&P/ stent, Hip replacement, Pacemaker/[AICD??]) Alcohol Use: none Drug use: none Medications and Allergies Amlodipine [Norvasc] 5 mg PO DAILY 10/08/16 [History] Apixaban [Eliquis] 5 mg PO BID 10/08/16 [History] Aspirin [Ecotrin] 325 mg PO DAILY 10/08/16 [History] Carvedilol [Coreg] 6.25 mg PO BIDWM 10/08/16 [History] Donepezil [Aricept] 5 mg PO HS 10/08/16 [History] Furosemide [Lasix] 40 mg PO BID 10/08/16 [History] Simvastatin [Zocor] 80 mg PO HS 10/08/16 [History] Tamsulosin [Flomax] 0.4 mg PO DAILY 10/08/16 [History] TraZODone 50 mg PO HS 10/08/16 [History] Gabapentin [Neurontin] 300 mg PO BID 10/09/16 [History] Gabapentin [Neurontin] 600 mg PO QAM 10/09/16 [History] Levothyroxine [Synthroid] 125 mcg PO DAILY 10/09/16 [History] Zolpidem [Ambien] 5 mg PO HS PRN 10/09/16 [History] Allergies No Known Allergies Allergy (Verified 10/09/16 10:28) - Meds/Allergy Pre-op Review Medications Reviewed: Yes Allergies Reviewed: Yes Beta Blockers on Current Med List: No Anesthesia Results - Labs 10/16/16 05:41 10/16/16 05:41 Laboratory Tests 10/09/16 10/16/16 10/16/16 15:58 05:41 05:41 Hgb 7.3 L Hct 25.6 L ABG pH ABG pCO2 ABG pO2 ABG HCO3 ABG Total CO2 ABG O2 Saturation ABG Base Excess Blood Gas Modality Inspired O2 Est GFR (Non-Af Amer) 28 L Stool Occult Blood Negative 10/16/16 12:53 Hgb Hct ABG pH 7.41 ABG pCO2 30 L ABG pO2 79 L ABG HCO3 19.0 L ABG Total CO2 19.9 L ABG O2 Saturation 96 ABG Base Excess -5.0 L Blood Gas Modality NC Inspired O2 32 Est GFR (Non-Af Amer) Stool Occult Blood - Imaging EKG: image reviewed (60bpm V-paced) Anesthesia Exam Vital Signs Temp Pulse Resp BP Pulse Ox 10/16/16 11:40 99 F 79 16 135/103 96 10/16/16 07:55 100.7 F H 72 16 121/75 94 L 10/15/16 20:00 98.4 F 66 20 110/62 98 10/15/16 16:06 98.1 F 70 16 111/60 97 Intake and Output 10/15/16 10/16/16 10/16/16 23:59 07:59 15:59 Intake Total 240 / 240 Output Total 1900 / 1900 1999 Balance -1660 / -1660 -1999 Intake: Oral 240 / 240 Output: Urine 950 / 950 1400 / 1400 Catheter 950 / 950 600 / 600 Other: Meal Dinner Percent of Meal Consumed 100% Stool Size Smear Large Large Stool Consistency soft soft soft formed Stool Color Brown # Voids 0 2 Anesthesia Assess/Plan ASA Score: 4, E Modified Rafael Scale for Level of Consciousness: Cooperative, oriented, and tranquil Anesthetic Plan: General Monitoring Plan: Standard Monitors Recovery Plan: PACU Anes Supervising Prov Stmt: Pt seen/evaluated, R&B Discussed w/ family present as pt has considerable co- morbidities/risk factors. Questions answered and consent obtained. - MD Anatoliy <Collins Medina - Last Filed: 10/17/16 15:40> Date of Encounter: 10/17/16 Anesthesia Results - Labs 10/17/16 05:12 10/17/16 05:12 - Imaging EKG: image reviewed Anesthesia Exam Vital Signs/O2 Sat, Most Current Temp Pulse Resp BP Pulse Ox 98.2 F 89 18 158/98 96 10/17/16 11:36 10/17/16 11:36 10/17/16 11:36 10/17/16 11:36 10/17/16 11:36 Height: 5'9'' Weight: 219# NPO (# of Hours): > 8 hrs Pain Scale: 2 Pain Scale Used: Numeric (1 - 10) - HEENT Pupil (Motor): Pupils equal, EOMI Mallampati: III Teeth: Edentulous Oral Opening: Greater than 3 - MIXED [employer]IVEST[employer] FARM WORKER LOC: Confused, Disoriented MIXED [employer]IVE[employer] FARM WORKER Motor: Normal RUE, Normal LUE, Normal RLE, Normal LLE, Normal Face MIXED [employer] AND [employer]IVEST[employer] FARM WORKER Sensory: Normal: RUE, LUE, RLE, LLE, Face - Cardiac Rhythm: Regular Murmur: None - Pulmonary Breath Sounds: bilateral Clear Respiratory Effort: Symmetrical Anesthesia Assess/Plan ASA Score: 4 Modified Rafael Scale for Level of Consciousness: Cooperative, oriented, and tranquil
--- NOTE | 2016-10-16 16:45 | Event Note ---
Date of Encounter: 10/16/16 Time of Encounter: 16:44 Patient seen this afternoon. His urine color is more clear this afternoon. He has not received any blood yet. We will cancel his surgery today. I will follow with serial urine collection.
[2016-10-16] MEDS ORDERED: Ipratropium/Albuterol Neb 3 ML IH PRN (16:48)
[2016-10-16 19:11] LABS: BCR-ABL1 Specimen Source NOT SPECIFIED
[2016-10-16] MEDS ORDERED: 0.9 % Sodium Chloride 250 ML ONE (20:01)
[2016-10-16] MEDS: traZODone 50 MG TABLET PO SCH (20:04)
[2016-10-17] MEDS: *HR* HYDROcodone/Acet 5/325 mg TABLET PO PRN (00:24)
[2016-10-17] MEDS: *HR* Morphine 2 MG/ML SYRINGE IVP PRN ×2 (02:35→12:12)
[2016-10-17] MEDS ORDERED: 0.9 % Sodium Chloride 250 ML ONE (03:24)
[2016-10-17 05:48] LABS: Hemoglobin 8.1 g/dL (12.9-16.9); Mean Corpuscular HGB Conc 28.9 g/dL (31.6-35.5); Mean Corpuscular Hemoglobin 29.2 pg (28.0-33.3); Mean Corpuscular Volume 101.1 fL (83.0-100.0); Platelet Count 645 K/mcL (140-400); Red Blood Count 2.77 M/mcL (4.19-5.50); Red Cell Distribution Width 19.6 % (11.5-14.5)
[2016-10-17 06:06] LABS: Calcium 8.3 mg/dL (8.6-10.8)
[2016-10-17 06:09] LABS: Anisocytosis 2+ (Not Present); Lymphocytes # 3.7 K/mcL (0.6-4.6); Neutrophils # 16.9 K/mcL (1.6-8.9); Platelet Estimate Increased (Normal)
[2016-10-17 06:10] LABS: Potassium 5.1 mEq/L (3.5-4.5)
--- NOTE | 2016-10-17 07:39 | Urology Progress Note ---
Date of Encounter: 10/17/16 Time of Encounter: 07:37 - Assessment and Plan (1) UTI (urinary tract infection) Current Visit: Yes Status: Acute Assessment and plan: He is currently on ceftriaxone. Qualifiers: Urinary tract infection type: acute cystitis Hematuria presence: without hematuria Qualified Code(s): N30.00 - Acute cystitis without hematuria (2) Ureterolithiasis Current Visit: No Status: Acute Assessment and plan: Right ureteral stent in place after ureteroscopic stone extraction. (3) Hematuria Current Visit: Yes Status: Acute Assessment and plan: I placed a urinal to the bedside. I encouraged him to try to use a urinal to collect any urine. We will obtain a bladder scan to make sure that he is emptying adequately. We will closely monitor his hematocrit and hemoglobin. The current plan is to hold off on surgery at this time if his urine remains clear. However, if he continues to have persistent bleeding we would need to proceed with a cystoscopy, possible clot evacuation, and possible fulguration. I will continue to closely monitor him and his urine color. Progress Note Narrative: Surgery cancelled last night. he was given 2 units of PRBC. H&H did not significantly improve. He has been able to void, but RN has not been able to collect any sample secondary to his incontinence. Objective Initial Vital Signs Temp Pulse Resp BP Pulse Ox 97.8 F 63 17 101/49 100 10/08/16 09:52 10/08/16 09:52 10/08/16 09:52 10/08/16 09:52 10/08/16 09:52 - General physical appearance Present: well developed, well nourished, no distress - Respiratory Present: normal respiratory effort - Abdomen Present: soft - Labs 10/17/16 05:12 10/17/16 05:12 Diabetes panel 10/17/16 Range/Units 05:12 Sodium 140 (136-145) mEq/L Potassium 5.1 H (3.5-4.5) mEq/L Chloride 115 H (98-109) mEq/L Carbon Dioxide 16 L (19-29) mEq/L BUN 50 H (8-26) mg/dL Creatinine 2.03 H (0.72-1.25) mg/dL Glucose 96 (70-99) mg/dL Calcium 8.3 L (8.6-10.8) mg/dL Calcium panel 10/17/16 Range/Units 05:12 Calcium 8.3 L (8.6-10.8) mg/dL Pituitary panel 10/17/16 Range/Units 05:12 Sodium 140 (136-145) mEq/L Potassium 5.1 H (3.5-4.5) mEq/L Chloride 115 H (98-109) mEq/L Carbon Dioxide 16 L (19-29) mEq/L BUN 50 H (8-26) mg/dL Creatinine 2.03 H (0.72-1.25) mg/dL Glucose 96 (70-99) mg/dL Calcium 8.3 L (8.6-10.8) mg/dL Adrenal panel 10/17/16 Range/Units 05:12 Sodium 140 (136-145) mEq/L Potassium 5.1 H (3.5-4.5) mEq/L Chloride 115 H (98-109) mEq/L Carbon Dioxide 16 L (19-29) mEq/L BUN 50 H (8-26) mg/dL Creatinine 2.03 H (0.72-1.25) mg/dL Glucose 96 (70-99) mg/dL Calcium 8.3 L (8.6-10.8) mg/dL - VTE Documentation of Mechanical Device: Intermittent pneumatic compression device Consult Discharge Plan - Plan Instructions: Atrial Fibrillation (DC), Kidney Stones (DC), Kidney Stones (GEN) , Urinary Tract Infection in Men (DC), Acute Hematuria (DC), Acute Hematuria ( GEN), Chronic Hypertension (DC), Alzheimer Disease, Poultry Tender (GEN), Kidney Stones, Poultry Tender (GEN) Referrals: NO,PCP [Primary Care Provider] -
--- NOTE | 2016-10-17 09:57 | Internal Med Progress Note ---
<Rambo Florian - Last Filed: 10/17/16 18:03> Time of Encounter: 08:00 - Assessment and plan (1) Hematuria Current Visit: Yes Status: Acute Assessment and plan: -management as per urology. Patient has not gotten cystoscopy. -Patient having painful urination, red. 298 residual on bladder scanner. Urology spoken with personally and is aware. Pending taking patient to OR. -Patient states he did not eat breakfast and has not eaten since last night. -will follow urology recommendations (2) Hyperkalemia Current Visit: Yes Status: Acute Assessment and plan: Pt was reported of taking K supplements at home, will hold at this time No EKG changes noted continue to closely monitor K+ 5.1 on admission. -consider adding duoneb treatment to help with breathing and decrease K (3) Leukocytosis Current Visit: Yes Status: Acute Assessment and plan: -wbc at admission 18. Decreased from yesterday to 20.6. Urine and BC negative. 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 Patient has chronic WBC elevation. -Urology consulted. Cystoscopy today. -Continue abx. Qualifiers: Leukocytosis type: unspecified Qualified Code(s): D72.829 - Elevated white blood cell count, unspecified (4) MAGGIE (acute kidney injury) Current Visit: No Status: Acute Assessment and plan: - >3.0 and today 2. Poor urine output. -Urology and nephrology on board. Will follow their consults. (5) Generalized weakness Current Visit: Yes Status: Acute Assessment and plan: -likely secondary to underlying anemia, but possible infection as well. -Continue to monitor hemoglobin -Pain control with morphine and [place] as needed -Obtain urology consult, appreciate recommendations for continuing management/ care -Continue abx -PT/OT eval -Patient very excited this morning, felt like he has gotten his strength back. However, as per , patient is requiring more care on daily basis than she is able to provide, f/u social services aide eval for d/c planning (6) Anemia Current Visit: No Status: Acute Assessment and plan: Likely due to CKD and iron deficiency. FOBT (-). Patient has low iron. Patient does report some melena, though it is unclear how good the patients memory is. B12 and Folate normal. Patient received 2 units PRBCs 10/08, 1 unit 10/16, 1 unit 10/17. Hemoglobin has remained stable in recheck. Mild pain patient penis with dark urine continues. Postop patient heparin Plan as above Will continue to monitor Transfuse as necessary if hemoglobin below 7 Qualifiers: Anemia type: unspecified type Qualified Code(s): D64.9 - Anemia, unspecified - Subjective Interval history: Patient initially feeling better this morning-no catheter, no pain with urinating. Was incontinent. However, he started having increase penis and superpubic pain while urinating later in the morning. Yelling from the room in pain. Urine was light red color, bloody. No clots. Urology called and patient will be taken to OR. Suppository given to try to help with pain. - Constitutional Vitals: Temp Pulse Resp BP Pulse Ox 98.6 F 72 12 152/70 98 10/17/16 08:25 10/17/16 08:25 10/17/16 08:25 10/17/16 08:25 10/17/16 08:25 General appearance: Present: A&O X 3, pleasant, no acute distress, obese, answers questions appropriately - Head Head exam: Present: atraumatic, normal inspection - Respiratory Respiratory exam: Present: CTAB - Additional comments: Penis visibly more swollen. No osito blood coming out of urethra. No errythema/ infection. No catheter. - Extremities Exam Additional comments: Bilateral arm and leg pitting edema. Internal Medicine: Result - Labs CBC & Chem 7: 10/17/16 05:12 10/17/16 05:12 Labs: Short CBC 10/17/16 Range/Units 05:12 WBC 20.6 H (4.3-11.1) K/mcL Hgb 8.1 L (12.9-16.9) g/dL Hct 28.0 L (37.5-50.1) % Plt Count 645 H (140-400) K/mcL Neutrophils # 16.9 H (1.6-8.9) K/mcL BMP 10/17/16 05:12 Sodium 140 Potassium 5.1 H Chloride 115 H Carbon Dioxide 16 L BUN 50 H Creatinine 2.03 H Glucose 96 Calcium 8.3 L - ABG Interpretation ABG results: ABG ABG pH 7.41 pH Units (7.32-7.45) 10/16/16 12:53 ABG pCO2 30 mmHg (35-45) L 10/16/16 12:53 ABG pO2 79 mmHg (85-104) L 10/16/16 12:53 ABG O2 Saturation 96 % (95-98) 10/16/16 12:53 PT/INR, D-dimer PT 18.1 Seconds (9.4-12.1) H 10/09/16 09:52 - Impressions Impressions Chest X-Ray 10/16/16 10:51 IMPRESSION: Cardiomegaly with right basilar atelectasis. Otherwise no acute process. D/ / Emir Nina MD / Emir Nina MD Interpreting Provider: Emir Nina MD - VTE Documentation of Mechanical Device: Intermittent pneumatic compression device Consult Discharge Plan - Plan Instructions: Atrial Fibrillation (DC), Kidney Stones (DC), Kidney Stones (GEN) , Urinary Tract Infection in Men (DC), Acute Hematuria (DC), Acute Hematuria ( GEN), Chronic Hypertension (DC), Alzheimer Disease, Business Solutions Analyst (GEN), Kidney Stones, Business Solutions Analyst (GEN) Referrals: NO,PCP [Primary Care Provider] - <Owen Fernandes - Last Filed: 10/17/16 18:52> Date of Encounter: 10/17/16 - Assessment and plan (1) Anemia Current Visit: No Status: Acute Qualifiers: Anemia type: other cause Other causes of anemia: acute posthemorrhagic Qualified Code(s): D62 - Acute posthemorrhagic anemia (2) Hematuria Current Visit: Yes Status: Acute (3) Atrial fibrillation Current Visit: No Status: Chronic Qualifiers: Atrial fibrillation type: chronic Qualified Code(s): I48.2 - Chronic atrial fibrillation (4) CKD (chronic kidney disease) stage 4, GFR 15-29 ml/min Current Visit: Yes Status: Acute (5) Generalized weakness Current Visit: Yes Status: Acute - Constitutional Vitals: Temp Pulse Resp BP Pulse Ox 97.7 F 81 16 133/79 96 10/17/16 18:12 10/17/16 18:12 10/17/16 18:12 10/17/16 18:12 10/17/16 18:12 Internal Medicine: Result - Labs CBC & Chem 7: 10/17/16 05:12 10/17/16 05:12 Labs: Short CBC 10/17/16 Range/Units 05:12 WBC 20.6 H (4.3-11.1) K/mcL Hgb 8.1 L (12.9-16.9) g/dL Hct 28.0 L (37.5-50.1) % Plt Count 645 H (140-400) K/mcL Neutrophils # 16.9 H (1.6-8.9) K/mcL BMP 10/17/16 05:12 Sodium 140 Potassium 5.1 H Chloride 115 H Carbon Dioxide 16 L BUN 50 H Creatinine 2.03 H Glucose 96 Calcium 8.3 L - ABG Interpretation ABG results: ABG ABG pH 7.41 pH Units (7.32-7.45) 10/16/16 12:53 ABG pCO2 30 mmHg (35-45) L 10/16/16 12:53 ABG pO2 79 mmHg (85-104) L 10/16/16 12:53 ABG O2 Saturation 96 % (95-98) 10/16/16 12:53 PT/INR, D-dimer PT 18.1 Seconds (9.4-12.1) H 10/09/16 09:52 - Attending Attestation I examined this patient and my medical decision-making was reviewed with the Resident Physician on 10/17/16. I agree with the documented findings, disposition and treatment plan as described except to the extent set forth below. Mr Rodríguez is currently admitted for acute hematuria and anemia of acute blood loss. He remains moderate to high risk due to potential for further bleeding and need for intervention Mr. Rodríguez is having a lot of pain in his bladder. He is unable to urinate much at all right now. He is to go to OR later. Exam Alert. Uncomfortable Heart reg Lungs clear I/P 1 Hematuria 2. Anemia of acute blood loss OR today per urology. Further diagnoses and plan as above.
[2016-10-17] MEDS: Aspirin Enteric Coated 325 MG Tablet PO SCH (10:14)
[2016-10-17] MEDS: Gabapentin 300 MG CAPSULE PO SCH ×3 (10:14→19:55)
[2016-10-17] MEDS: Sennosides/Docusate Sodium TABLET PO SCH ×2 (10:14→19:55)
[2016-10-17] MEDS: Furosemide 20 MG/2 ML VIAL IVP SCH (10:14)
[2016-10-17] MEDS ORDERED: *HR* Belladonna Alkaloids/Opium 60 MG RECTAL SUPPOSITORY RC STA (11:28)
[2016-10-17] MEDS ORDERED: *HR* Morphine 2 MG/ML SYRINGE IVP ONE (13:03)
--- NOTE | 2016-10-17 14:53 | Event Note ---
Date of Encounter: 10/17/16 Time of Encounter: 14:52 He had recurrent hematuria today. H&H did not improve as expected with transfusion. Will proceed with cystoscopy, clot evacuation, and fulguration later today. Dr. Reyes will perform the surgery. OR and Dr. Reyes are aware.
[2016-10-17] MEDS ORDERED: Dexamethasone 4 MG/ML VIAL ONE (15:30)
[2016-10-17] MEDS ORDERED: *HR* FentaNYL (PF) 100 MCG/2 ML VIAL ONE (15:30)
[2016-10-17] MEDS ORDERED: Ondansetron 4 MG/2 ML VIAL ONE (15:30)
--- NOTE | 2016-10-17 15:30 | Anesthesia Progress Note ---
Date of Encounter: 10/17/16 Time of Encounter: 15:29 Anesthesia Note - Note Note: 10/17/16 15:29 Patient seen and examined agree with pre-op note by Dr. Mckeon of 10/16/2016. Hg increased to 8.1 post transfusion overnight 10/17/16 15:31 Laboratory Tests 10/09/16 10/17/16 10/17/16 09:52 05:12 05:12 WBC 20.6 H Hgb 8.1 L Hct 28.0 L Plt Count 645 H INR 1.7 Potassium 5.1 H Chloride 115 H Carbon Dioxide 16 L BUN 50 H Creatinine 2.03 H
[2016-10-17] MEDS ORDERED: *HR* Propofol 200 MG/20 ML VIAL IVP ONE (15:31)
[2016-10-17] MEDS ORDERED: *HR* Midazolam HCl 2 MG/2 ML VIAL ONE (15:33)
[2016-10-17] MEDS ORDERED: Ringers Solution, Lactated 1,000 ML IVC SCH (17:15)
--- NOTE | 2016-10-17 17:21 | Operative Note ---
Date of procedure: 10/17/16 Pre-op diagnosis: clot retention. Retained right ureteral stent. Gross hematuria Post-op diagnosis: same Procedure: Cystoscopy with clot evacuation. Fulguration of bladder mucosa and bladder neck Removal of right ureteral stent Anesthesia: GETA Surgeon: Kane Reyes Estimated blood loss (cc): 10 Specimen: None Condition: stable Disposition: PACU Procedure in Detail: PROCEDURE IN DETAIL: Patient was taken back to the operating room, positioned supine on the operating table. Anesthesia was applied without complication. They were moved into dorsal lithotomy. Careful attention was maintained to cushion all pressure points for patient's safety. They were prepped and draped in sterile fashion. Time-out was performed with the proper patient and procedure. A 21-[place]er rigid cystoscope was inserted into the bladder without difficulty. Systematic examination of bladder revealed limited visibility secondary to a very large clot. I removed the cystoscope and placed the 25 [place]er resectoscope with visual obturator. The obturator was removed in the Barb syringe was obtained and was able to suction out the entire clot through the resectoscope. I estimate the clot volume was approximately 120 mL. I inserted the resectoscope loop and grasped the right ureteral stent and remove this through the resectoscope without complication. I then carefully examined the bladder for any evidence of bleeding. It a very friable bladder mucosa especially along the trigone and bladder neck. This tissue had evidence of slow oozing but no significant hemorrhage. On a setting of 120 coag I fulgurated the majority of the trigone avoiding ureteral orifice ease and extended this back through the bladder neck towards the prostatic urethra. This area appeared to be the most abnormal area and had the highest potential to cause the bleeding and clot. The remainder the bladder was carefully examined and there was no evidence of tumor or other foreign body. Despite the fulguration he could see the mucosa still having a tendency to ooze and I suspect this was from anticoagulation. I elected to place a 24 [place] three-way catheter and started CBI with normal saline. In recovery on a moderate drip his urine was fairly clear.
--- NOTE | 2016-10-17 17:42 | Anesthesia Evaluation Post Op ---
Date of Encounter: 10/17/16 Time of Encounter: 17:41 - Vital Signs Vital Signs: Vital Signs/O2 Sat, Most Current Temp Pulse Resp BP Pulse Ox 98.2 F 83 20 122/70 95 10/17/16 17:08 10/17/16 17:28 10/17/16 17:28 10/17/16 17:28 10/17/16 17:28 - Lungs Lungs: Clear Ascult./Percussion - Airway Airway: Non-obstructed - Cardiovascular Regular Rate - Mental Status Mental Status: Alert & Oriented, Answers Appropriately - Pain Pain Scale: 0 (sleeping) Pain Scale used: Numeric (1 - 10) - Nausea Vomiting Nausea Vomiting: Not Present - Hydration Hydration: NPO, Huang catheter - Discharge PostOp Status: Transfer Patient to floor
[2016-10-17] MEDS: traZODone 50 MG TABLET PO SCH (19:54)
[2016-10-18 05:14] LABS: Hematocrit 29.3 % (37.5-50.1); Hemoglobin 8.3 g/dL (12.9-16.9); Mean Corpuscular HGB Conc 28.3 g/dL (31.6-35.5); Mean Corpuscular Hemoglobin 29.4 pg (28.0-33.3); Mean Corpuscular Volume 103.9 fL (83.0-100.0); Mean Platelet Volume 10.1 fL (9.4-12.4); Nucleated Red Blood Cells 0.1 /100 WBC (0); Platelet Count 644 K/mcL (140-400); Red Blood Count 2.82 M/mcL (4.19-5.50)
[2016-10-18 05:29] LABS: Calcium 8.3 mg/dL (8.6-10.8)
[2016-10-18 05:42] LABS: Potassium 5.5 mEq/L (3.5-4.5)
[2016-10-18 05:52] LABS: Basophils # 0.4 K/mcL (0.0-0.2); Eosinophils # 0.4 K/mcL (0.0-0.6); Lymphocytes # 2.1 K/mcL (0.6-4.6); Monocytes # 0.9 K/mcL (0.0-1.3); Neutrophils # 15.3 K/mcL (1.6-8.9)
[2016-10-18 05:53] LABS: Anisocytosis 2+ (Not Present); Large Platelets Present (Not Present); Platelet Estimate Marked Increase (Normal); Polychromasia 2+ (Not Present)
[2016-10-18 05:54] LABS: Acanthocytes 1+ (Not Present)
[2016-10-18 05:55] LABS: Schistocytes 1+ (Not Present)
--- NOTE | 2016-10-18 06:45 | Urology Progress Note ---
Date of Encounter: 10/18/16 Time of Encounter: 06:43 - Assessment and Plan (1) UTI (urinary tract infection) Current Visit: Yes Status: Acute Assessment and plan: On ceftriaxone. Qualifiers: Urinary tract infection type: acute cystitis Hematuria presence: without hematuria Qualified Code(s): N30.00 - Acute cystitis without hematuria (2) Ureterolithiasis Current Visit: No Status: Acute Assessment and plan: Stent removed yesterday. Creatinine is stable. (3) Hematuria Current Visit: Yes Status: Acute Assessment and plan: Still with some hematuria. Continue CBI today. Will check coag. Per OR report , no concerning tumor was noted. Progress Note Narrative: Sleeping this morning. Status post cysoscopy, clot evacuation, fulguration. POD #1. On CBI today. Urine is pink on moderate to fast CBI. Objective Initial Vital Signs Temp Pulse Resp BP Pulse Ox 97.8 F 63 17 101/49 100 10/08/16 09:52 10/08/16 09:52 10/08/16 09:52 10/08/16 09:52 10/08/16 09:52 - General physical appearance Present: well developed, well nourished, no distress - Respiratory Present: normal respiratory effort - Genitourinary Urine Appearance: Present: Hematuria (pink on moderate to fast CBI.) - Labs 10/18/16 05:02 10/18/16 05:02 Diabetes panel 10/18/16 Range/Units 05:02 Sodium 140 (136-145) mEq/L Potassium 5.5 H (3.5-4.5) mEq/L Chloride 117 H (98-109) mEq/L Carbon Dioxide 13 L (19-29) mEq/L BUN 50 H (8-26) mg/dL Creatinine 1.88 H (0.72-1.25) mg/dL Glucose 97 (70-99) mg/dL Calcium 8.3 L (8.6-10.8) mg/dL Calcium panel 10/18/16 Range/Units 05:02 Calcium 8.3 L (8.6-10.8) mg/dL Pituitary panel 10/18/16 Range/Units 05:02 Sodium 140 (136-145) mEq/L Potassium 5.5 H (3.5-4.5) mEq/L Chloride 117 H (98-109) mEq/L Carbon Dioxide 13 L (19-29) mEq/L BUN 50 H (8-26) mg/dL Creatinine 1.88 H (0.72-1.25) mg/dL Glucose 97 (70-99) mg/dL Calcium 8.3 L (8.6-10.8) mg/dL Adrenal panel 10/18/16 Range/Units 05:02 Sodium 140 (136-145) mEq/L Potassium 5.5 H (3.5-4.5) mEq/L Chloride 117 H (98-109) mEq/L Carbon Dioxide 13 L (19-29) mEq/L BUN 50 H (8-26) mg/dL Creatinine 1.88 H (0.72-1.25) mg/dL Glucose 97 (70-99) mg/dL Calcium 8.3 L (8.6-10.8) mg/dL - VTE Documentation of Mechanical Device: Intermittent pneumatic compression device Consult Discharge Plan - Plan Instructions: Atrial Fibrillation (DC), Kidney Stones (DC), Kidney Stones (GEN) , Urinary Tract Infection in Men (DC), Acute Hematuria (DC), Acute Hematuria ( GEN), Chronic Hypertension (DC), Alzheimer Disease, Assistant Media Buyer (GEN), Kidney Stones, Assistant Media Buyer (GEN) Referrals: NO,PCP [Primary Care Provider] -
[2016-10-18 07:43] LABS: INR 1.6; Prothrombin Time 17.9 Seconds (9.4-12.1)
[2016-10-18 07:46] LABS: Activated Partial Thrombo Time 35.3 Seconds (26.0-36.0)
[2016-10-18] MEDS: Gabapentin 300 MG CAPSULE PO SCH ×3 (08:42→21:21)
[2016-10-18] MEDS: Furosemide 20 MG/2 ML VIAL IVP SCH (08:42)
[2016-10-18] MEDS: Aspirin Enteric Coated 325 MG Tablet PO SCH (08:43)
[2016-10-18] MEDS: Sennosides/Docusate Sodium TABLET PO SCH ×2 (08:43→21:21)
[2016-10-18] MEDS ORDERED: Ipratropium/Albuterol Neb 3 ML IH PRN (09:15)
[2016-10-18] MEDS ORDERED: *HR* Morphine 2 MG/ML SYRINGE IVP PRN (09:15)
[2016-10-18] MEDS ORDERED: Naloxone 0.4 MG/ML INJ IVP PRN (09:15)
[2016-10-18] MEDS ORDERED: *HR* HYDROcodone/Acet 5/325 mg TABLET PO PRN (09:15)
[2016-10-18] MEDS ORDERED: Ondansetron 4 MG/2 ML VIAL IVP PRN (09:15)
--- NOTE | 2016-10-18 09:18 | Nephrology Progress Note ---
Date of Encounter: 10/18/16 Time of Encounter: 09:10 - Assessment and Plan (1) Acute on chronic kidney failure Current Visit: No Status: Acute AK superimposed on CKD in setting of nephrolithiasis, s/p right ureteroscopy, stent placement and cystoscopy and subsequent removal. Renal fct improving, good urine output. Will continue to monitor. Subjective Interval history: States feeling good, slept good last night. Son present in room. CBI with light forbes output. Objective - Vital Signs Vital signs: Vital Signs Temp Pulse Resp BP Pulse Ox 10/18/16 08:09 97.8 F 79 14 120/60 93 L 10/18/16 05:27 97.7 F 75 18 128/75 99 10/17/16 22:00 95 10/17/16 21:56 97.8 F 85 17 117/73 95 10/17/16 18:12 97.7 F 81 16 133/79 96 10/17/16 17:38 97.6 F 81 20 124/79 96 10/17/16 17:28 83 20 122/70 95 10/17/16 17:18 95 18 132/81 96 10/17/16 17:08 98.2 F 88 18 125/76 96 10/17/16 11:36 98.2 F 89 18 158/98 96 Intake and Output 10/17/16 10/18/16 10/18/16 23:59 07:59 15:59 Intake Total 500 / 500 200 / 200 Output Total 4460 / 4460 4645 / 4645 Balance -4460 / -4460 -4145 / -4145 200 / 200 Intake: IV Fluids 200 / 200 Rocephin 1,000 MG In 200 / 200 Dextrose 5% (Minibag+) 100 ML 100 ML @ 200 mls/ hr IVPB DAILY [facility] Rx#: [id number] Oral 500 / 500 Output: Urine 3500 / 3500 4645 / 4645 Estimated Blood Loss 10 / 10 Urine Amount (Catheter) 950 / 950 Other: Intake, CBI Fluid 9,200 2,800 Output, CBI Fluid 11,850 2,000 Weight 106.3 kg Patient Weight 10/18/16 23:59 Weight 106.3 kg - General Appearance General appearance: Present: well-developed, well-nourished, appears started age EENT: Present: mucous membranes moist Neck: Present: no JVD Respiratory: Present: clear Cardiology: Present: edema, irregular rhythm Additional Comments: mild pitting in dependent thigh area and forearms Gastrointestinal: Present: normoactive bowel sounds, no tenderness Integumentary: Present: warm and dry Neurologic: Present: alert and oriented x3 Psychiatric: Present: mood/affect appropriate, cooperative - Lab 10/18/16 05:02 10/18/16 05:02 Most recent lab results ABG pH 7.41 pH Units (7.32-7.45) 10/16/16 12:53 ABG pCO2 30 mmHg (35-45) L 10/16/16 12:53 ABG pO2 79 mmHg (85-104) L 10/16/16 12:53 ABG HCO3 19.0 mEQ/L (21-27) L 10/16/16 12:53 ABG O2 Saturation 96 % (95-98) 10/16/16 12:53 Calcium 8.3 mg/dL (8.6-10.8) L 10/18/16 05:02 Phosphorus 5.4 mg/dL (2.3-4.7) H 10/09/16 04:29 Magnesium 3.0 mg/dL (1.6-2.6) H 10/09/16 04:29 Urine Creatinine 68 mg/dL 10/09/16 22:30 Urine Sodium 32.0 mEq/L 10/09/16 22:30 Urine Total Protein 22 mg/dL (1-14) H 10/09/16 22:30 - VTE Documentation of Mechanical Device: Intermittent pneumatic compression device Consult Discharge Plan - Plan Instructions: Atrial Fibrillation (DC), Kidney Stones (DC), Kidney Stones (GEN) , Urinary Tract Infection in Men (DC), Acute Hematuria (DC), Acute Hematuria ( GEN), Chronic Hypertension (DC), Alzheimer Disease, Movement Assembly Final Inspector (GEN), Kidney Stones, Movement Assembly Final Inspector (GEN) Referrals: NO,PCP [Primary Care Provider] -
[2016-10-18] MEDS ORDERED: *HR* Phytonadione 10 MG/ML AMPUL SQ ONE (09:40)
[2016-10-18] MEDS ORDERED: 0.9 % Sodium Chloride 250 ML ONE ×2 (11:00→13:58)
--- NOTE | 2016-10-18 12:45 | Internal Med Progress Note ---
<Rambo Florian - Last Filed: 10/18/16 14:03> Date of Encounter: 10/18/16 Time of Encounter: 07:00 - Assessment and plan (1) Hematuria Current Visit: Yes Status: Acute Assessment and plan: -management as per urology. Cystoscopy on 10/17-Stent and clot removal. -No complaints of pain. Feels much better. -undergoing CIB. Tolerating well. Patient still bleeding and off eliquis. Will stop aspirin and give 2 units FFP. -will follow urology recommendations (2) Hyperkalemia Current Visit: Yes Status: Acute Assessment and plan: -Pt was reported of taking K supplements at home, will hold at this time -No EKG changes noted -K+ 5.1 on admission 5.5 today. -Patient denies CP, SOB. Will redraw K level. If still elevated, consider 20mg IVP lasixs or insulin/glucose to decrease K. Kidney function improvement compared to yesterday. (3) Leukocytosis Current Visit: Yes Status: Acute Assessment and plan: -wbc at admission 18. Remains elevated. Urine and BC negative. 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 Patient has chronic WBC elevation. Stent was removed on 10/17. -Oncology consulted on 10/10. Will review note and labs drawn. -Continue abx. Qualifiers: Leukocytosis type: unspecified Qualified Code(s): D72.829 - Elevated white blood cell count, unspecified (4) MAGGIE (acute kidney injury) Current Visit: No Status: Acute Assessment and plan: - >3.0. Improved today. CBI started on 10/18 -Urology and nephrology on board. Will follow their consults. (5) Generalized weakness Current Visit: Yes Status: Acute Assessment and plan: -likely secondary to underlying anemia, but possible infection as well. -Continue to monitor hemoglobin -Pain control with morphine and [place] as needed -Obtain urology consult, appreciate recommendations for continuing management/ care -Continue abx -PT/OT eval -Patient felt like he has gotten his strength back. However, as per , patient is requiring more care on daily basis than she is able to provide, f/u social insurance specialist eval for d/c planning (6) Anemia Current Visit: No Status: Acute Assessment and plan: Likely due to CKD and iron deficiency. FOBT (-). Patient has low iron. Patient does report some melena, though it is unclear how good the patients memory is. B12 and Folate normal. Patient received 2 units PRBCs 10/08, 1 unit 10/16, 1 unit 10/17. Hemoglobin has remained stable in recheck. -Eliquis and asprin held. FFP 2 units started. Patient does not have a history of stent placement or diabetes mellitus. Does have A fib. Qualifiers: Anemia type: other cause Other causes of anemia: acute posthemorrhagic Qualified Code(s): D62 - Acute posthemorrhagic anemia - Time Spent With Patient 25 - 35 minutes - Subjective Interval history: Patient feels a lot better today. Has no complaints of pain. He is under continuous irrigation of the bladder. Tolerating it well. He is eating and drinking normally. Has no questions or concerns. Rounds conducted at bedside with a brother and family member present. There are no questions or concerns - Constitutional Vitals: Temp Pulse Resp BP Pulse Ox 98 F 67 16 112/70 100 10/18/16 12:07 10/18/16 12:07 10/18/16 12:07 10/18/16 12:07 10/18/16 12:07 General appearance: Present: A&O X 3, pleasant, no acute distress, obese, answers questions appropriately - Head Head exam: Present: atraumatic, normal inspection - Other Additional findings: Heart regular rate and rhythm, no murmurs. Denies CP. Lungs are clear all station bilaterally. Patient does have right shoulder bruise present for the past 3 months. Was started on eliquis 3 months ago. Penis appears less swollen. No pain. Continuous irrigation of bladder with light red urine in bag. Peripheral edema in arms and legs. Looks improved compared to yesterday. Internal Medicine: Result - Labs CBC & Chem 7: 10/18/16 05:02 10/18/16 05:02 Labs: Short CBC 10/18/16 Range/Units 05:02 WBC 21.2 H (4.3-11.1) K/mcL Hgb 8.3 L (12.9-16.9) g/dL Hct 29.3 L (37.5-50.1) % Plt Count 644 H (140-400) K/mcL Neutrophils # 15.3 H (1.6-8.9) K/mcL BMP 10/18/16 05:02 Sodium 140 Potassium 5.5 H Chloride 117 H Carbon Dioxide 13 L BUN 50 H Creatinine 1.88 H Glucose 97 Calcium 8.3 L - ABG Interpretation ABG results: ABG ABG pH 7.41 pH Units (7.32-7.45) 10/16/16 12:53 ABG pCO2 30 mmHg (35-45) L 10/16/16 12:53 ABG pO2 79 mmHg (85-104) L 10/16/16 12:53 ABG O2 Saturation 96 % (95-98) 10/16/16 12:53 PT/INR, D-dimer PT 17.9 Seconds (9.4-12.1) H 10/18/16 07:23 - VTE Documentation of Mechanical Device: Intermittent pneumatic compression device Consult Discharge Plan - Plan Instructions: Atrial Fibrillation (DC), Kidney Stones (DC), Kidney Stones (GEN) , Urinary Tract Infection in Men (DC), Acute Hematuria (DC), Acute Hematuria ( GEN), Chronic Hypertension (DC), Alzheimer Disease, Logistics Manager (GEN), Kidney Stones, Logistics Manager (GEN) Referrals: NO,PCP [Primary Care Provider] - <Owen Fernandes - Last Filed: 10/19/16 16:45> - Assessment and plan (1) Anemia Current Visit: No Status: Acute Qualifiers: Anemia type: other cause Other causes of anemia: acute posthemorrhagic Qualified Code(s): D62 - Acute posthemorrhagic anemia (2) Hematuria Current Visit: Yes Status: Acute (3) Atrial fibrillation Current Visit: No Status: Chronic Qualifiers: Atrial fibrillation type: chronic Qualified Code(s): I48.2 - Chronic atrial fibrillation (4) CKD (chronic kidney disease) stage 4, GFR 15-29 ml/min Current Visit: Yes Status: Acute (5) Generalized weakness Current Visit: Yes Status: Acute - Constitutional Vitals: Temp Pulse Resp BP Pulse Ox 98.2 F 68 18 121/69 100 10/19/16 15:55 10/19/16 15:55 10/19/16 15:55 10/19/16 15:55 10/19/16 15:55 Internal Medicine: Result - Labs CBC & Chem 7: 10/19/16 04:51 10/19/16 04:51 Labs: Short CBC 10/19/16 Range/Units 04:51 WBC 18.8 H (4.3-11.1) K/mcL Hgb 7.6 L (12.9-16.9) g/dL Hct 25.6 L (37.5-50.1) % Plt Count 557 H (140-400) K/mcL Neutrophils # 12.0 H (1.6-8.9) K/mcL BMP 10/19/16 04:51 Sodium 141 Potassium 4.7 H Chloride 115 H Carbon Dioxide 18 L BUN 45 H Creatinine 1.92 H Glucose 111 H Calcium 8.4 L Liver Function 10/19/16 Range/Units 04:51 Total Bilirubin 1.0 (0.2-1.2) mg/dL AST 16 (5-34) Units/L ALT 16 (0-55) Units/L Alkaline Phosphatase 152 H (38-126) Units/L Albumin 2.9 L (3.5-5.0) g/dL - ABG Interpretation ABG results: ABG ABG pH 7.41 pH Units (7.32-7.45) 10/16/16 12:53 ABG pCO2 30 mmHg (35-45) L 10/16/16 12:53 ABG pO2 79 mmHg (85-104) L 10/16/16 12:53 ABG O2 Saturation 96 % (95-98) 10/16/16 12:53 PT/INR, D-dimer PT 17.5 Seconds (9.4-12.1) H 10/19/16 04:51 - Attending Attestation I examined this patient and my medical decision-making was reviewed with the Resident Physician on 10/18/16. I agree with the documented findings, disposition and treatment plan as described except to the extent set forth below. Mr. Rodríguez is currently admitted for weakness and has significant hematuria and coagulopathy. He remains high risk due to potential for significant bleeding and further complications. Mr. Rodríguez feels OK. He continues to have some bleeding. Pain present when has clots. No CP or SOB. No GI symptoms. No fever. Has continuous bladder irrigation going at this time. Exam Alert. Comfortable Heart irreg Lungs no wheeze Abd soft I/P 1. Coagulopathy - FFP and Vit K given today 2. Anemia of acute blood loss 3. Leukocytosis persists 4. Hematuria Further diagnoses and plan as above.
[2016-10-18] MEDS ORDERED: traZODone 50 MG TABLET PO SCH (21:00)
[2016-10-19 05:03] LABS: Hematocrit 25.6 % (37.5-50.1); Hemoglobin 7.6 g/dL (12.9-16.9); Lymphocytes # 1.5 K/mcL (0.6-4.6); Mean Corpuscular HGB Conc 29.7 g/dL (31.6-35.5); Mean Corpuscular Hemoglobin 29.6 pg (28.0-33.3); Mean Corpuscular Volume 99.6 fL (83.0-100.0); Platelet Count 557 K/mcL (140-400); Red Blood Count 2.57 M/mcL (4.19-5.50); Red Cell Distribution Width 19.6 % (11.5-14.5)
[2016-10-19 05:06] LABS: INR 1.6; Prothrombin Time 17.5 Seconds (9.4-12.1)
[2016-10-19 05:08] LABS: Activated Partial Thrombo Time 32.7 Seconds (26.0-36.0)
[2016-10-19 05:22] LABS: Albumin 2.9 g/dL (3.5-5.0); Calcium 8.4 mg/dL (8.6-10.8); Globulin 2.9 g/dL (2.4-3.5); Potassium 4.7 mEq/L (3.5-4.5); Total Protein 5.8 g/dL (6.0-8.3)
[2016-10-19 07:03] LABS: Eosinophils # 0.4 K/mcL (0.0-0.6); Monocytes # 2.6 K/mcL (0.0-1.3); Platelet Estimate Increased (Normal)
[2016-10-19 07:04] LABS: Anisocytosis 1+ (Not Present)
[2016-10-19 07:05] LABS: Ovalocytes 1+ (Not Present); Poikilocytosis 1+ (Not Present); Schistocytes 1+ (Not Present)
[2016-10-19] MEDS ORDERED: Furosemide 20 MG/2 ML VIAL IVP SCH (09:00)
[2016-10-19] MEDS ORDERED: Aspirin Enteric Coated 325 MG Tablet PO SCH (09:00)
[2016-10-19] MEDS ORDERED: Gabapentin 300 MG CAPSULE PO SCH (09:00)
--- NOTE | 2016-10-19 09:06 | Urology Progress Note ---
Date of Encounter: 10/19/16 Time of Encounter: 06:50 - Assessment and Plan (1) Gross hematuria Current Visit: Yes Status: Acute Assessment and plan: Im concerned that his hematuria has not decreased with CBI over the last 2 days. This AM it appears that the hematuria has worsened and more dependent on a moderate to rapid CBI to maintain a transparent appearance. Discussed with Dr Ledezma. We both feel this patient remains coagulopathic with bleeding diathesis. It is often very difficult or impossible to resolve the hematuria in this setting. fulguration has failed because visualized bleeding continued minutes after fulguration in the OR. Nephrostomy tubes to divert urine are an option but he would likely still drain into his bladder bc of recent stent. Formalin bladder instillation can stop the bleeding but will require another general anesthesia. Consider transfer to [place] to a tertiary hospital. Dr Ledezma or myself will discuss options with family today. May also need to consider palliative care and withdrawal aggressive management. Progress Note Narrative: still having cath discomfort. nurses unable to slow CBI. still irrigated small clots Objective Initial Vital Signs Temp Pulse Resp BP Pulse Ox 97.8 F 63 17 101/49 100 10/08/16 09:52 10/08/16 09:52 10/08/16 09:52 10/08/16 09:52 10/08/16 09:52 - General physical appearance Present: no distress - Additional Exam transparent red/pink urine on moderate drip - Labs 10/19/16 04:51 10/19/16 04:51 Diabetes panel 10/18/16 10/19/16 Range/Units 14:05 04:51 Sodium 141 (136-145) mEq/L Potassium 4.6 H 4.7 H (3.5-4.5) mEq/L Chloride 115 H (98-109) mEq/L Carbon Dioxide 18 L (19-29) mEq/L BUN 45 H (8-26) mg/dL Creatinine 1.92 H (0.72-1.25) mg/dL Glucose 111 H (70-99) mg/dL Calcium 8.4 L (8.6-10.8) mg/dL AST 16 (5-34) Units/L ALT 16 (0-55) Units/L Alkaline Phosphatase 152 H (38-126) Units/L Albumin 2.9 L (3.5-5.0) g/dL Calcium panel 10/19/16 Range/Units 04:51 Calcium 8.4 L (8.6-10.8) mg/dL Albumin 2.9 L (3.5-5.0) g/dL Pituitary panel 10/18/16 10/19/16 Range/Units 14:05 04:51 Sodium 141 (136-145) mEq/L Potassium 4.6 H 4.7 H (3.5-4.5) mEq/L Chloride 115 H (98-109) mEq/L Carbon Dioxide 18 L (19-29) mEq/L BUN 45 H (8-26) mg/dL Creatinine 1.92 H (0.72-1.25) mg/dL Glucose 111 H (70-99) mg/dL Calcium 8.4 L (8.6-10.8) mg/dL Adrenal panel 10/18/16 10/19/16 Range/Units 14:05 04:51 Sodium 141 (136-145) mEq/L Potassium 4.6 H 4.7 H (3.5-4.5) mEq/L Chloride 115 H (98-109) mEq/L Carbon Dioxide 18 L (19-29) mEq/L BUN 45 H (8-26) mg/dL Creatinine 1.92 H (0.72-1.25) mg/dL Glucose 111 H (70-99) mg/dL Calcium 8.4 L (8.6-10.8) mg/dL Total Bilirubin 1.0 (0.2-1.2) mg/dL AST 16 (5-34) Units/L ALT 16 (0-55) Units/L Alkaline Phosphatase 152 H (38-126) Units/L Albumin 2.9 L (3.5-5.0) g/dL - VTE Documentation of Mechanical Device: Intermittent pneumatic compression device Consult Discharge Plan - Plan Instructions: Atrial Fibrillation (DC), Kidney Stones (DC), Kidney Stones (GEN) , Urinary Tract Infection in Men (DC), Acute Hematuria (DC), Acute Hematuria ( GEN), Chronic Hypertension (DC), Alzheimer Disease, Fourdrinier Tender (GEN), Kidney Stones, Fourdrinier Tender (GEN) Referrals: NO,PCP [Primary Care Provider] -
[2016-10-19] MEDS: Sennosides/Docusate Sodium TABLET PO SCH (09:34)
--- NOTE | 2016-10-19 09:57 | Internal Med Progress Note ---
Date of Encounter: 10/19/16 - Assessment and plan (1) Hematuria Current Visit: Yes Status: Acute (2) Hyperkalemia Current Visit: Yes Status: Acute (3) Leukocytosis Current Visit: Yes Status: Acute Qualifiers: Leukocytosis type: unspecified Qualified Code(s): D72.829 - Elevated white blood cell count, unspecified (4) MAGGIE (acute kidney injury) Current Visit: No Status: Acute (5) Generalized weakness Current Visit: Yes Status: Acute (6) Anemia Current Visit: No Status: Acute Qualifiers: Anemia type: other cause Other causes of anemia: acute posthemorrhagic Qualified Code(s): D62 - Acute posthemorrhagic anemia - Subjective Interval history: Patient feels a lot better today. Has no complaints of pain. He is under continuous irrigation of the bladder. Tolerating it well. He is eating and drinking normally. Has no questions or concerns. Rounds conducted at bedside with a brother and family member present. There are no questions or concerns - Constitutional Vitals: Temp Pulse Resp BP Pulse Ox 98.3 F 77 18 110/70 96 10/19/16 07:03 10/19/16 07:03 10/19/16 07:03 10/19/16 08:00 10/19/16 07:03 General appearance: Present: A&O X 3, pleasant, no acute distress, obese, answers questions appropriately Internal Medicine: Result - Labs CBC & Chem 7: 10/19/16 04:51 10/19/16 04:51 Labs: Short CBC 10/19/16 Range/Units 04:51 WBC 18.8 H (4.3-11.1) K/mcL Hgb 7.6 L (12.9-16.9) g/dL Hct 25.6 L (37.5-50.1) % Plt Count 557 H (140-400) K/mcL Neutrophils # 12.0 H (1.6-8.9) K/mcL BMP 10/18/16 10/19/16 14:05 04:51 Sodium 141 Potassium 4.6 H 4.7 H Chloride 115 H Carbon Dioxide 18 L BUN 45 H Creatinine 1.92 H Glucose 111 H Calcium 8.4 L Liver Function 10/19/16 Range/Units 04:51 Total Bilirubin 1.0 (0.2-1.2) mg/dL AST 16 (5-34) Units/L ALT 16 (0-55) Units/L Alkaline Phosphatase 152 H (38-126) Units/L Albumin 2.9 L (3.5-5.0) g/dL - ABG Interpretation ABG results: ABG ABG pH 7.41 pH Units (7.32-7.45) 10/16/16 12:53 ABG pCO2 30 mmHg (35-45) L 10/16/16 12:53 ABG pO2 79 mmHg (85-104) L 10/16/16 12:53 ABG O2 Saturation 96 % (95-98) 10/16/16 12:53 PT/INR, D-dimer PT 17.5 Seconds (9.4-12.1) H 10/19/16 04:51 - VTE Documentation of Mechanical Device: Intermittent pneumatic compression device Consult Discharge Plan - Plan Instructions: Atrial Fibrillation (DC), Kidney Stones (DC), Kidney Stones (GEN) , Urinary Tract Infection in Men (DC), Acute Hematuria (DC), Acute Hematuria ( GEN), Chronic Hypertension (DC), Alzheimer Disease, Filling Station Equipment Mechanic (GEN), Kidney Stones, Filling Station Equipment Mechanic (GEN) Referrals: NO,PCP [Primary Care Provider] -
[2016-10-19] MEDS: Gabapentin 300 MG CAPSULE PO SCH (13:07)
--- NOTE | 2016-10-19 13:13 | Event Note ---
Date of Encounter: 10/19/16 Time of Encounter: 13:12 Catheter hand irrigated today. Hematuria persists. We discussed formalin instillation. We discussed transfer to higher level care regarding his coagulopathy.
--- NOTE | 2016-10-19 13:43 | Nephrology Progress Note ---
Date of Encounter: 10/19/16 Time of Encounter: 13:15 - Assessment and Plan (1) Acute on chronic kidney failure Current Visit: No Status: Acute AK superimposed on CKD in setting of nephrolithiasis, s/p right ureteroscopy, stent placement and cystoscopy and subsequent removal. Renal fct stable, may be his new baseline. Will continue to monitor. Subjective Interval history: States feeling good. CBI with light forbes output. Patient states he is transferring to [facility], nursing staff in room states not official, but there had been discussion. Objective - Vital Signs Vital signs: Vital Signs Temp Pulse Resp BP Pulse Ox 10/19/16 12:00 98.3 F 89 18 117/76 91 L 10/19/16 09:40 97 10/19/16 08:00 110/70 10/19/16 07:03 98.3 F 77 18 96/82 96 10/19/16 04:00 98.2 F 81 20 112/59 92 L 10/19/16 00:00 98.2 F 74 22 121/85 94 L 10/18/16 21:15 95 10/18/16 20:00 97.9 F 66 18 113/55 93 L 10/18/16 16:04 98.3 F 68 14 124/85 91 L 10/18/16 15:49 97.9 F 68 16 115/71 10/18/16 14:09 97.8 F 60 16 117/62 97 Intake and Output 10/18/16 10/19/16 10/19/16 23:59 07:59 15:59 Intake Total 360 / 360 0 / 0 340 / 340 Output Total 1000 / 1000 500 / 500 Balance -640 / -640 -500 / -500 340 / 340 Intake: IV Fluids 100 / 100 Rocephin 1,000 MG In 100 / 100 Dextrose 5% (Minibag+) 100 ML 100 ML @ 200 mls/ hr IVPB DAILY ALIVIA Rx#: [id number] Oral 360 / 360 0 / 0 240 / 240 Output: Urine 1000 / 1000 500 / 500 Other: Intake, CBI Fluid 6,000 12,900 Meal Dinner Breakfast Percent of Meal Consumed 90% 100% Output, CBI Fluid 6,000 13,400 # Voids 0 - General Appearance General appearance: Present: well-developed, well-nourished, appears started age EENT: Present: mucous membranes moist Neck: Present: no JVD Respiratory: Present: clear Cardiology: Present: edema, irregular rhythm Additional Comments: mild Gastrointestinal: Present: normoactive bowel sounds, no tenderness Integumentary: Present: warm and dry Psychiatric: Present: mood/affect appropriate, cooperative - Lab 10/19/16 04:51 10/19/16 04:51 Most recent lab results ABG pH 7.41 pH Units (7.32-7.45) 10/16/16 12:53 ABG pCO2 30 mmHg (35-45) L 10/16/16 12:53 ABG pO2 79 mmHg (85-104) L 10/16/16 12:53 ABG HCO3 19.0 mEQ/L (21-27) L 10/16/16 12:53 ABG O2 Saturation 96 % (95-98) 10/16/16 12:53 Calcium 8.4 mg/dL (8.6-10.8) L 10/19/16 04:51 Phosphorus 5.4 mg/dL (2.3-4.7) H 10/09/16 04:29 Magnesium 3.0 mg/dL (1.6-2.6) H 10/09/16 04:29 Urine Creatinine 68 mg/dL 10/09/16 22:30 Urine Sodium 32.0 mEq/L 10/09/16 22:30 Urine Total Protein 22 mg/dL (1-14) H 10/09/16 22:30 - VTE Documentation of Mechanical Device: Intermittent pneumatic compression device Consult Discharge Plan - Plan Instructions: Atrial Fibrillation (DC), Kidney Stones (DC), Kidney Stones (GEN) , Urinary Tract Infection in Men (DC), Acute Hematuria (DC), Acute Hematuria ( GEN), Chronic Hypertension (DC), Alzheimer Disease, Weight And Test Bar Clerk (GEN), Kidney Stones, Weight And Test Bar Clerk (GEN) Referrals: NO,PCP [Primary Care Provider] -
[2016-10-19 15:56] VITALS: BP 121/69
--- NOTE | 2016-10-19 16:20 | Discharge Summary ---
<Rambo Florian - Last Filed: 10/19/16 16:58> Date of Encounter: 10/19/16 Time of Encounter: 11:00 - Discharge Diagnosis (1) Hematuria Priority: Primary Status: Acute Comments: -Patient continues to have hematuria despite therapy. -Urology is following the case. Spoke with the patient and family directly concerning the future the care of the patient. Family and patient decided that a transfer to [facility] Patient's INR remains 1.6 despite 2 units of fresh frozen plasma. Oncology has been consulted to evaluate reasons for continued bleeding/ possible coaguopathy. - (2) Hyperkalemia Priority: Primary Status: Acute Comments: -Patient's potassium level has decreased compared to yesterday. -Patient denies any chest pain or symptoms. No need to treat at this time. (3) Leukocytosis Priority: Primary Status: Acute Comments: -Patient's white blood cell count has decreased to 18. 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 Urine culture and blood culture negative, nephrostomy stent removed on 10/17. -Oncology consulted and aware of case -Will continue abx at this time. Qualifiers: Leukocytosis type: unspecified Qualified Code(s): D72.829 - Elevated white blood cell count, unspecified (4) MAGGIE (acute kidney injury) Priority: Primary Status: Acute Comments: Creatinine 3.0 admission. Improvement. CBI started on 10/18. -Urology and nephrology on board. Will follow her consults (5) Generalized weakness Priority: Primary Status: Acute Comments: -Resolved (6) Anemia Priority: Primary Status: Acute Comments: -Patient received 4 packed red blood cells throughout course of treatment. Hemoglobin has remained stable. -Glucose and aspirin held. Fresh frozen plasma, 2 units, started on 10/19. Patient does not have a history of coronary stent placement or diabetes mellitus. Does have A. fib. Qualifiers: Anemia type: other cause Other causes of anemia: acute posthemorrhagic Qualified Code(s): D62 - Acute posthemorrhagic anemia - Discharge Medications Home Medications: Amlodipine [Norvasc] 5 mg PO DAILY 10/08/16 [History] Apixaban [Eliquis] 5 mg PO BID 10/08/16 [History] Aspirin [Ecotrin] 325 mg PO DAILY 10/08/16 [History] Carvedilol [Coreg] 6.25 mg PO BIDWM 10/08/16 [History] Donepezil [Aricept] 5 mg PO HS 10/08/16 [History] Furosemide [Lasix] 40 mg PO BID 10/08/16 [History] Simvastatin [Zocor] 80 mg PO HS 10/08/16 [History] Tamsulosin [Flomax] 0.4 mg PO DAILY 10/08/16 [History] TraZODone 50 mg PO HS 10/08/16 [History] Gabapentin [Neurontin] 300 mg PO BID 10/09/16 [History] Gabapentin [Neurontin] 600 mg PO QAM 10/09/16 [History] Levothyroxine [Synthroid] 125 mcg PO DAILY 10/09/16 [History] Zolpidem [Ambien] 5 mg PO HS PRN 10/09/16 [History] Allergies/Adverse Reactions: Allergies No Known Allergies Allergy (Verified 10/09/16 10:28) Procedures/tests Complete & Pending: echo left ventricular function. EKG. CT of the head negative, chest negative , abdomin and pelvis: large inguinal hernia, acities. Date of admission: 10/10/16 18:52 Primary care physician: PCP NO Consults: 10/11/16 09:56 Consult to Urology [CONS] Routine Consulting Provider: Urology Siri Reason for Consult: Frankly bloody urine and severe pain in patient penis, recent lithotripsy with ureteral stent placement in 09/26/60 Call Completed: Yes Discharging clinician: Rambo Florian Anticipated date of discharge: 10/19/16 - Patient Status Disposition: Admitted As Inpatient Condition: Fair Functional capacity at discharge: bed bound Overall status at discharge: patient is not back to baseline (Patient denies pain. Back to baseline physically and mentally. Hematuria continues.) - Discharge Instructions Instructions: Atrial Fibrillation (DC), Kidney Stones (DC), Kidney Stones (GEN) , Urinary Tract Infection in Men (DC), Acute Hematuria (DC), Acute Hematuria ( GEN), Chronic Hypertension (DC), Alzheimer Disease, Clay Caster (GEN), Kidney Stones, Clay Caster (GEN) Follow Up With: NO,PCP [Primary Care Provider] - - Diet and Activity Activity: increase activity as tolerated Diet: advance to your usual diet Interval History: Patient is does not complain of pain. His resting currently in bed comfortably. Son and family member are present at bedside. They have no questions or concerns at this time. Dr. Ledezma, with urology, spent a great deal with the patient and family discussing current care and future care. Patient is family decided that a transfer to the [facility] cancer facility for further evaluation of hematuria, leukocytosis, anemia would be the best option. Patient and family are very thankful for the care they received here. Hospital course: Mr. Rodríguez is a 81 year old male preserved originally admitted for generalized weakness. Discovered to have anemia, hematuria, leukocytosis. Blood and urine culture negative. Sepsis criteria not met. However, with recent right nephrostomy stent placement and leukocytosis, ceftriaxone IV started. Patient recieved multiple PRBC. Urology consulted. Patient taken back to the OR. Urology removed a nephrostomy stent and clot in bladder. Patient placed on Continuous bladder irrigation. Hematuria persist. FFP 2 units given. INR remained 1.6 and hematuria persist. Discussion with family and patient with urology. Best course of action is for patient to be transferred to [facility] facility. Dr. Fernandes spoke with attending at [facility] considering the transfer of care/admitting patient. Patient will arrive by squad for direct admit. Oncology consulted for leukocytosis, persistant hematuria despite intervention...possible coaguopathy. Blast seen on smear. Final diagnosis not conducted. No biopsies taken. No previous history of cancer. - Time Spent with Patient Total time spent providing and/or coordinating discharge services: Greater than 30 minutes - Constitutional Vitals: Temp Pulse Resp BP Pulse Ox 98.2 F 68 18 121/69 100 10/19/16 15:55 10/19/16 15:55 10/19/16 15:55 10/19/16 15:55 10/19/16 15:55 General appearance: Present: A&O X 3, pleasant, no acute distress, obese, answers questions appropriately - Respiratory Respiratory exam: Present: CTAB - Cardiovascular Cardiovascular exam: Present: RRR - GI/Abdominal GI/Abdominal exam: Present: soft, no peritoneal signs - Additional comments: CIB secure and in place. Penis is swollen. Non tender. Not changed since yesterday.No errythema, signs of infection. Garrett bag red, hematuria. - Neurological Exam Neurological exam: Present: alert, oriented X3 - Psychiatric Psychiatric exam: Present: normal affect, normal mood - Other Additional findings: upper extremity edema improved. - VTE Documentation of Mechanical Device: Intermittent pneumatic compression device <Owen Fernandes - Last Filed: 10/19/16 18:02> - Discharge Diagnosis (1) Anemia Status: Acute Qualifiers: Anemia type: other cause Other causes of anemia: acute posthemorrhagic Qualified Code(s): D62 - Acute posthemorrhagic anemia (2) Hematuria Status: Acute (3) Atrial fibrillation Status: Chronic Qualifiers: Atrial fibrillation type: chronic Qualified Code(s): I48.2 - Chronic atrial fibrillation (4) CKD (chronic kidney disease) stage 4, GFR 15-29 ml/min Priority: Secondary Status: Acute (5) Generalized weakness Status: Acute (6) Coagulopathy Priority: Secondary Status: Acute (7) Hyperkalemia Status: Acute (8) HTN (hypertension) Priority: Secondary Status: Chronic Qualifiers: Hypertension type: essential hypertension Qualified Code(s): I10 - Essential (primary) hypertension Date of admission: 10/10/16 18:52 Primary care physician: PCP NO Consults: 10/11/16 09:56 Consult to Urology [CONS] Routine Consulting Provider: Urology Siri Reason for Consult: Frankly bloody urine and severe pain in patient penis, recent lithotripsy with ureteral stent placement in 09/26/60 Call Completed: Yes Hospital course: Mr. Rodríguez is a 81 year old male - Time Spent with Patient Total time spent providing and/or coordinating discharge services: 45min - Constitutional Vitals: Temp Pulse Resp BP Pulse Ox 98.2 F 68 18 121/69 100 10/19/16 15:55 10/19/16 15:55 10/19/16 15:55 10/19/16 15:55 10/19/16 15:55 - Attending Attestation I examined this patient and my medical decision-making was reviewed with the Resident Physician on 10/19/16. I agree with the documented findings, disposition and treatment plan as described except to the extent set forth below. Mr. Rodríguez continues to have hematuria. INR remains elevated as well as continued leukocytosis. Exam Alert. Pleasant Heart irreg Lungs clear Abd soft Blood in garrett noted. I/P 1. Coagulopathy 2. Hematuria 3. A fib Discussed with patient and family. Will arrange transfer to [facility] for further workup. Call to [facility] - d/w Dr. Alarcon. Has accepted patient in transfer. Will send records. Continue supportive care pending transfer probably today. Patient, and family updated on plan and transfer.
== END 2016-10-19 19:00 | disposition other institution (70) | DRG 669 ==
LOC: EMEROO 09:50 → 2NENU 09:50 → SUATTDRO 13:34 → 2NENU 14:14 → SUATTDRO 10-10 18:52 → 2NENU 10-11 22:36
PROVIDERS: ADMIT Internal Medicine; ATTEND Internal Medicine